=== PATIENT | female | born 1970 | race Caucasian/White ===

== ENCOUNTER → 2018-05-12 07:58 | Outpatient (CLI) | payer MEDICARE, MEDICAID, SELFPAY ==
[2018-05-12 08:53] LABS: Add Manual Diff / Slide Review NO; Basophils Percent Auto 1.2 % (0-2); Eosinophils Percent Auto 4.1 % (2-4); Hematocrit 35.6 % (36-46); Lymphocytes Percent Auto 47.1 % (25-40); Mean Corpuscular HGB Conc 33.7 % (30-36); Monocytes Percent Auto 8.6 % (3-14); Neutrophils Absolute Auto 3200 /uL (3000-5900); Platelet Count 230 X10^3/uL (150-400); Red Blood Cell Count 4.14 X10^6/uL (4.0-5.2); Red Cell Distribution Width 13.5 % (11.6-14.8); White Blood Cell Count 8.1 X10^3/uL (4.5-11.0)
[2018-05-12 09:12] LABS: Hemoglobin A1C% w Est Avg Glu 10.5 % (4.0-6.0)
[2018-05-12 09:13] LABS: Alanine Aminotransferase 22 IU/L (9-52); Albumin 4.4 g/dL (3.5-5.0); Albumin Globulin Ratio 1.6 (1.0-2.8); Alkaline Phosphatase 46 U/L (38-126); Aspartate Aminotransferase 10 IU/L (14-36); BUN Creatinine Ratio 23.3 (6-22); Bilirubin Total 0.4 mg/dL (0.2-1.3); Blood Urea Nitrogen 14 mg/dL (7-17); Calcium 9.2 mg/dL (8.4-10.2); Carbon Dioxide 31 mmol/L (22-32); Chloride 87 mmol/L (98-107); Cholesterol 140 mg/dL (140-199); Estimated Glomerular Filt Rate > 60.0 mL/min (>60); Globulin 2.8 g/dL (1.7-4.1); Glucose 234 mg/dL (70-100); HDL Cholesterol 47 mg/dL (40-60); HEMOLYSIS < 15 (0-50); LDL Cholesterol Calculated 75 mg/dL (<100); Potassium 4.2 mmol/L (3.4-5.1); Sodium 128 mmol/L (137-145); Total Protein 7.2 g/dL (6.3-8.2); Triglycerides 92 mg/dL (35-150)
[2018-05-12 09:51] LABS: Creatinine Urine Random 46.1 mg/dL
[2018-05-12 09:57] LABS: Microalbumi Creatinin Ratio Ur 30.3 ug/mg CR (<30); Microalbumin Urine Random 1.4 mg/dL (0-1.6)
== END ==
PROVIDERS: PCP Family Medicine; Visit Provider Family Medicine
DX: E11.9 Type 2 diabetes mellitus without complications (principal)
CPT/HCPCS: 36415; 80053; 80061; 82043; 82570; 83036; 84443; 85025

== ENCOUNTER 2018-07-13 02:16 | Emergency (ER) | payer MEDICARE, MEDICAID, SELFPAY ==
[2018-07-13 02:20] VITALS: BP 160/77; PULSE 126; RESP 20; TEMP 37; O2SAT 96
--- NOTE | 2018-07-13 02:33 | DI.RAD.S_ITS ---
PROCEDURE: XR CHEST 1V INDICATIONS: weakness, fatigue TECHNIQUE: One view of the chest was acquired. COMPARISON: [facility], CHEST 1 VIEW, 04/01/2016, 11:18. [facility], CHEST 2 VIEW, 01/28/2014, 9:50. [facility], CHEST 2 VIEW, 08/05/2013, 9:08. [facility], CHEST 1 VIEW, 08/01/2013, 14:27. FINDINGS: Surgical changes and devices: None. Lungs and pleura: No pleural effusions or pneumothorax. Lungs are clear. Mediastinum: Mediastinal contours appear normal. Heart size is normal. Bones and chest wall: No suspicious bony lesions. Overlying soft tissues appear unremarkable. IMPRESSION: No acute cardiopulmonary disease process. Dictated by: Luisa Ayoub MD, PhD on 07/13/2018 at 10:12 Approved by: Luisa Ayoub MD, PhD on 07/13/2018 at 10:12
[2018-07-13 03:14] LABS: HCO3 VBG 22 mmol/L (24-28); Oxygen Saturation VBG 70 % (70-75); PCO2 VBG 34.6 mmHg (45-50); PO2 VBG 36 mmHg (35-45); Total CO2 VBG 23 mmol/L (24-29)
[2018-07-13 03:26] LABS: Add Manual Diff / Slide Review NO; Basophils Percent Auto 1.1 % (0-2); Eosinophils Percent Auto 0.3 % (2-4); Hematocrit 31.9 % (36-46); Hemoglobin 10.8 g/dL (12.0-16.0); Lymphocytes Percent Auto 11.4 % (25-40); Mean Corpuscular HGB Conc 33.9 % (30-36); Mean Corpuscular Hemoglobin 29.6 PG (26-34); Mean Corpuscular Volume 87.4 fL (80-100); Monocytes Percent Auto 13.1 % (3-14); Neutrophils Absolute Auto 7300 /uL (3000-5900); Neutrophils Percent Auto 74.1 % (50-75); Platelet Count 264 X10^3/uL (150-400); Red Blood Cell Count 3.65 X10^6/uL (4.0-5.2); Red Cell Distribution Width 14.5 % (11.6-14.8); White Blood Cell Count 9.8 X10^3/uL (4.5-11.0)
[2018-07-13 03:40] LABS: Alanine Aminotransferase 30 IU/L (9-52); Albumin Globulin Ratio 1.1 (1.0-2.8); Alkaline Phosphatase 104 U/L (38-126); Aspartate Aminotransferase 38 IU/L (14-36); Bilirubin Total 0.5 mg/dL (0.2-1.3); Blood Urea Nitrogen 12 mg/dL (7-17); Calcium 9.6 mg/dL (8.4-10.2); Carbon Dioxide 23 mmol/L (22-32); Chloride 86 mmol/L (98-107); Estimated Glomerular Filt Rate > 60.0 mL/min (>60); Globulin 3.5 g/dL (1.7-4.1); Glucose 275 mg/dL (70-100); HEMOLYSIS < 15 (0-50); Potassium 3.8 mmol/L (3.4-5.1); Sodium 126 mmol/L (137-145); Total Protein 7.5 g/dL (6.3-8.2)
[2018-07-13 03:43] LABS: Ketones (Beta-Hydroxybutyrate) 2.83 mmol/L (<0.27)
[2018-07-13] MEDS: SODIUM CHLORIDE 0.9% 1,000 ML 1000 ML IV ×2 (03:50→04:41)
[2018-07-13 03:52] LABS: Troponin I < 0.012 ng/mL (0.01-0.034)
[2018-07-13 03:58] LABS: Bacteria Urine Many (>30); Culture Indicated Urine Specimen Cultured; RBC Urine 1-5/HPF (0-5/HPF); WBC Urine 30-100/HPF (0-5/HPF)
--- NOTE | 2018-07-13 04:01 | ED_ITS ---
HPI - Weakness General Chief complaint: Diabetic Problem Stated complaint: blood sugar low, has been spaced out Time Seen by Provider: 07/13/18 02:20 Source: patient and family Mode of arrival: ambulatory Limitations: no limitations History of Present Illness HPI Narrative: 48-year-old female with a history of type 2 diabetes and a cardiac history presents with her in the chief complaint of generally feeling unwell for the past 3-4 days. She denies any specific complaints other than fatigue. She has had no nausea, vomiting or diarrhea. She denies any chest pain or shortness of breath. She denies any cough nor dizziness, weakness or lightheadedness. She denies any change in her diabetic regimen and states she has been taking her medications as directed MD Complaint: generalized weakness Onset (ago): day(s) Duration: constant Location: generalized Migration: none Relieving factors: none Exacerbating factors: none Associated symptoms: denies other symptoms Related Data Previous Rx's Medication Instructions Recorded albuterol sulfate 3 ml INH Q6HP PRN #60 amp 08/13/13 azithromycin [Zithromax] 250 mg PO QDAY #6 tab 01/17/17 doxycycline monohydrate 100 mg PO Q12H #20 cap 08/31/17 Disabled Parking Permit stefani #1 09/09/17 clotrimazole-betamethasone 1 stefani TOPICAL BID #15 gm 11/01/17 [Lotrisone] [EMLA/IMCD] #0 12/05/17 metoclopramide HCl 10 mg PO SEE INSTRUCTIONS #120 tab 01/28/18 dulaglutide 1.5 mg/0.5 mL 1.5 mg SUBCUT QWEEK #2 ml 05/15/18 subcutaneous pen injector fenofibrate 160 mg tablet 160 mg PO QDAY #90 tab 05/15/18 fluoxetine 20 mg capsule 60 mg PO QDAY #270 cap 05/15/18 glimepiride 4 mg tablet 4 mg PO QAM #90 tab 05/15/18 insulin aspart U-100 100 unit/mL 0 unit SUBCUT BID #30 ea 05/15/18 subcutaneous pen lisinopril 5 mg tablet 10 mg PO QDAY #180 tab 05/15/18 metoprolol succinate ER 25 mg 25 mg PO BID #90 tab 05/15/18 tablet,extended release 24 hr nortriptyline 50 mg capsule 50 mg PO HS #30 cap 05/15/18 omeprazole 20 mg capsule,delayed 20 mg PO QDAY #30 cap 05/15/18 release rosuvastatin 40 mg tablet 40 mg PO QDAY #90 tab 05/15/18 temazepam 30 mg capsule 30 mg PO HS #60 cap 05/15/18 [place] pkg BID #100 05/21/18 insulin detemir (U-100) 100 0 unit SUBCUT SEE INSTRUCTIONS #10 06/03/18 unit/mL subcutaneous solution ml gabapentin 600 mg tablet 600 mg PO TID #540 tab 07/07/18 oxycodone-acetaminophen 10 mg-325 1 - 2 tab PO Q6HP PRN #200 tab 07/10/18 mg tablet cephalexin [Keflex] 500 mg PO QID 10 Days #40 cap 07/13/18 Allergies Allergy/AdvReac Type Severity Reaction Status Date / Time Sulfa (Sulfonamide Allergy Severe hives Verified 05/15/18 10:54 Antibiotics) [SULFA (SULFONAMIDE ANTIBIOTICS)] Review of Systems Review of Systems All systems reviewed & are unremarkable except as noted in HPI and below Constitutional Denies chills, Denies fever(s), Denies lethargy and Reports weakness Eyes Denies change in vision, Denies eye discharge, Denies irritation and Denies loss of vision ENT Ears, Nose, Mouth, and Throat: Denies change in voice, Denies neck pain and Denies sore throat Cardiovascular Denies chest pain, Denies irregular heart rhythm, Denies lightheadedness, Denies palpitations, Denies dyspnea, Denies dyspnea on exertion and Denies orthopnea Respiratory Denies cough, Denies dyspnea, Denies dyspnea on exertion and Denies wheezing Gastrointestinal Gastrointestinal: Denies abdominal pain, Denies change in bowel habits, Denies diarrhea, Denies nausea and Denies vomiting Genitourinary Denies hematuria, Denies flank pain, Denies urinary incontinence and Denies urinary urgency Musculoskeletal Denies neck pain Integumentary/Breasts Denies pruritus, Denies erythema, Denies rash and Denies wounds Neurologic Denies confusion, Denies loss of vision and Reports weakness Psychiatric Denies anxiety, Denies confusion, Denies depression, Denies homicidal ideation and Denies suicidal ideation Endocrine Denies palpitations Hematologic/Lymphatic Denies easy bruising Allergic/Immunologic Denies wheezing [facility] Social History Smoking Status: Never smoker Exam Initial Vital Signs Initial Vital Signs: Vital Signs Temperature 98.6 F 07/13/18 02:20 Pulse Rate 126 H 07/13/18 02:20 Respiratory Rate 20 07/13/18 02:20 Blood Pressure 160/77 H 07/13/18 02:20 Pulse Oximetry 96 07/13/18 02:20 Const General: cooperative and well developed Nutritional Appearance: well nourished Orientation: alert, awake, oriented x3 and not confused HENMT Head: normocephalic and atraumatic Ears: external ears normal and TM's normal bilaterally Nose: external nose normal and No nasal discharge Face and sinus: sinuses nontender, face symmetric, no sinus tenderness and No dry mucous membranes Mouth: oral mucosae normal and moist mucous membranes Teeth and gingiva: dentition normal Throat: tonsils normal and uvula midline Eyes General: appearance normal, both eyes and all related structures Eyelids: eyelids normal Conjunctivae: conjunctivae normal Sclera: sclerae normal Pupils: PERRL EOM: EOM intact bilaterally Chest Chest: normal inspection of the chest Resp Effort & Inspection: normal respiratory effort, able to speak in complete sentences, no respiratory distress and no use of accessory muscles Auscultation: clear to auscultation bilaterally, no rales, no rhonchi and no wheezes Cardio Rate: tachycardic Rhythm: regular rhythm Heart Sounds: no click, no gallops, no murmurs and no rubs Pulses: normal peripheral pulses GI Inspection: non-distended Palpation: soft, no hepatosplenomegaly, No guarding, No pulsatile mass and No tender Auscultation: normal bowel sounds Back/Spine/Pelvis Back: No CVA tenderness Cervical Spine: cervical ROM normal and No pain with cervical ROM Thoracic/Lumbar Spine: thoracic and lumbar spine normal to inspection Skin General: no rashes or lesions noted, No jaundice and No petechiae Extrem General: full ROM, no clubbing, cyanosis or edema, no pedal edema and no calf tenderness Course Orders Ordered: ED Orders 07/13/18 02:33 XR chest 1V Stat EKG-12 Lead Stat 07/13/18 03:00 Complete Blood Count AUTO DIFF Stat Comprehensive Metabolic Panel Stat Ketones (Beta-Hydroxybutyrate) Stat Lactate (Lactic Acid) Stat Procalcitonin Stat T4 Thyroxine Stat Thyroid Stimulating Hormone Stat Troponin I Stat Urine Culture Stat Urine Microscopic Stat Venous Blood Gas Stat Discontinued Medications Sodium Chloride (Normal Saline 0.9%) 1,000 mls @ 1,000 mls/hr IV BOLUS ONE Stop: 07/13/18 03:31 Last Infusion: 07/13/18 04:41 Dose: 0 mls/hr Admin: 07/13/18 03:50 Dose: 1,000 mls/hr Sodium Chloride (Normal Saline 0.9%) 1,000 mls @ 1,000 mls/hr IV BOLUS ONE Stop: 07/13/18 05:09 Last Infusion: 07/13/18 05:38 Dose: 0 mls/hr Admin: 07/13/18 04:41 Dose: 1,000 mls/hr Ceftriaxone Sodium/Dextrose (Rocephin) 1 gm in 50 mls @ 100 mls/hr IV NOW ONE Stop: 07/13/18 04:41 Last Infusion: 07/13/18 04:46 Dose: 0 mls/hr Admin: 07/13/18 04:20 Dose: 100 mls/hr Reevaluation(s) Reevaluation #1: HR down to 103 after 1L saline. Time: 04:10 Vital Signs - 8 hr 07/13/18 02:20 07/13/18 05:01 Temperature 98.6 F Pulse Rate 126 H 107 H Respiratory Rate 20 17 Blood Pressure 160/77 H Blood Pressure [Right Arm] 140/70 Pulse Oximetry 96 99 MDM - Weakness Lab Data Attestation: I reviewed the patient's lab results. patient is hyponatremic, but this is nearly identical to prior numbers Result diagrams: 07/13/18 03:00 07/13/18 03:00 Lab Results 07/13/18 07/13/18 07/13/18 Range/Units 03:00 03:00 03:00 WBC 9.8 (4.5-11.0) X10^3/uL RBC 3.65 L (4.0-5.2) X10^6/uL Hgb 10.8 L (12.0-16.0) g/dL Hct 31.9 L (36-46) % MCV 87.4 (80-100) fL MCH 29.6 (26-34) PG MCHC 33.9 (30-36) % RDW 14.5 (11.6-14.8) % Plt Count 264 (150-400) X10^3/uL Neut % (Auto) 74.1 (50-75) % Lymph % (Auto) 11.4 L (25-40) % [place] % (Auto) 13.1 (3-14) % Eos % (Auto) 0.3 L (2-4) % Baso % (Auto) 1.1 (0-2) % Neut # (Auto) 7300 H (1859-4095) /uL VBG pH (7.31-7.41) VBG pCO2 (45-50) mmHg VBG pO2 (35-45) mmHg VBG HCO3 (24-28) mmol/L VBG Total CO2 (24-29) mmol/L VBG O2 Saturation (70-75) % VBG Base Excess (0-4) mmol/L Sodium 126 L (137-145) mmol/L Potassium 3.8 (3.4-5.1) mmol/L Chloride 86 L (98-107) mmol/L Carbon Dioxide 23 (22-32) mmol/L BUN 12 (7-17) mg/dL Creatinine 0.80 (0.52-1.04) mg/dL Estimated GFR > 60.0 (>60) mL/min BUN/Creatinine Ratio 15.0 (6-22) Glucose 275 H (70-100) mg/dL Lactate (0.7-2.1) mmol/L Calcium 9.6 (8.4-10.2) mg/dL Total Bilirubin 0.5 (0.2-1.3) mg/dL AST 38 H (14-36) IU/L ALT 30 (9-52) IU/L Alkaline Phosphatase 104 (38-126) U/L Troponin I < 0.012 (0.01-0.034) ng/mL Total Protein 7.5 (6.3-8.2) g/dL Albumin 4.0 (3.5-5.0) g/dL Globulin 3.5 (1.7-4.1) g/dL Albumin/Globulin Ratio 1.1 (1.0-2.8) Procalcitonin 16.40 H (<0.5) ng/mL TSH (0.47-4.68) uIU/mL Thyroxine (T4) (5.5-11.0) ug/dL Urine RBC (0-5/HPF) Urine WBC (0-5/HPF) Urine Bacteria (None) Ur Culture Indicated? Micro UA Comment Ketones 2.83 H (<0.27) mmol/L 07/13/18 07/13/18 07/13/18 Range/Units 03:00 03:00 03:00 WBC (4.5-11.0) X10^3/uL RBC (4.0-5.2) X10^6/uL Hgb (12.0-16.0) g/dL Hct (36-46) % MCV (80-100) fL MCH (26-34) PG MCHC (30-36) % RDW (11.6-14.8) % Plt Count (150-400) X10^3/uL Neut % (Auto) (50-75) % Lymph % (Auto) (25-40) % [place] % (Auto) (3-14) % Eos % (Auto) (2-4) % Baso % (Auto) (0-2) % Neut # (Auto) (3032-9096) /uL VBG pH 7.40 (7.31-7.41) VBG pCO2 34.6 L (45-50) mmHg VBG pO2 36 (35-45) mmHg VBG HCO3 22 L (24-28) mmol/L VBG Total CO2 23 L (24-29) mmol/L VBG O2 Saturation 70 (70-75) % VBG Base Excess -3.0 L (0-4) mmol/L Sodium (137-145) mmol/L Potassium (3.4-5.1) mmol/L Chloride (98-107) mmol/L Carbon Dioxide (22-32) mmol/L BUN (7-17) mg/dL Creatinine (0.52-1.04) mg/dL Estimated GFR (>60) mL/min BUN/Creatinine Ratio (6-22) Glucose (70-100) mg/dL Lactate 1.0 (0.7-2.1) mmol/L Calcium (8.4-10.2) mg/dL Total Bilirubin (0.2-1.3) mg/dL AST (14-36) IU/L ALT (9-52) IU/L Alkaline Phosphatase (38-126) U/L Troponin I (0.01-0.034) ng/mL Total Protein (6.3-8.2) g/dL Albumin (3.5-5.0) g/dL Globulin (1.7-4.1) g/dL Albumin/Globulin Ratio (1.0-2.8) Procalcitonin (<0.5) ng/mL TSH 0.13 L (0.47-4.68) uIU/mL Thyroxine (T4) 5.68 (5.5-11.0) ug/dL Urine RBC (0-5/HPF) Urine WBC (0-5/HPF) Urine Bacteria (None) Ur Culture Indicated? Micro UA Comment Ketones (<0.27) mmol/L 07/13/18 Range/Units 03:00 WBC (4.5-11.0) X10^3/uL RBC (4.0-5.2) X10^6/uL Hgb (12.0-16.0) g/dL Hct (36-46) % MCV (80-100) fL MCH (26-34) PG MCHC (30-36) % RDW (11.6-14.8) % Plt Count (150-400) X10^3/uL Neut % (Auto) (50-75) % Lymph % (Auto) (25-40) % [place] % (Auto) (3-14) % Eos % (Auto) (2-4) % Baso % (Auto) (0-2) % Neut # (Auto) (1507-3126) /uL VBG pH (7.31-7.41) VBG pCO2 (45-50) mmHg VBG pO2 (35-45) mmHg VBG HCO3 (24-28) mmol/L VBG Total CO2 (24-29) mmol/L VBG O2 Saturation (70-75) % VBG Base Excess (0-4) mmol/L Sodium (137-145) mmol/L Potassium (3.4-5.1) mmol/L Chloride (98-107) mmol/L Carbon Dioxide (22-32) mmol/L BUN (7-17) mg/dL Creatinine (0.52-1.04) mg/dL Estimated GFR (>60) mL/min BUN/Creatinine Ratio (6-22) Glucose (70-100) mg/dL Lactate (0.7-2.1) mmol/L Calcium (8.4-10.2) mg/dL Total Bilirubin (0.2-1.3) mg/dL AST (14-36) IU/L ALT (9-52) IU/L Alkaline Phosphatase (38-126) U/L Troponin I (0.01-0.034) ng/mL Total Protein (6.3-8.2) g/dL Albumin (3.5-5.0) g/dL Globulin (1.7-4.1) g/dL Albumin/Globulin Ratio (1.0-2.8) Procalcitonin (<0.5) ng/mL TSH (0.47-4.68) uIU/mL Thyroxine (T4) (5.5-11.0) ug/dL Urine RBC 1-5/hpf (0-5/HPF) Urine WBC 30-100/hpf H (0-5/HPF) Urine Bacteria Many (>30) H (None) Ur Culture Indicated? Specimen cultured Micro UA Comment Not Reportable Ketones (<0.27) mmol/L Point of Care Testing Glucose POC 243 Urine Dip Bedside Urine Glucose 1000 mg/dl Bedside Urine Bilirubin - Negative Bedside Urine Ketone ++ 40 Urine Specific [place] 1.015 Bedside Urine Occult Blood + Bedside Urine pH 6.0 Bedside Urine Protein + 30 Bedside Urine Urobilinogen - Negative Bedside Urine Nitrite - Negative Bedside Urine Leukocytes ++ 125 Esterase MDM Narrative Medical decision making narrative: Diabetic patient presents with chief complaint of feeling unwell. She has no fever and denies any dysuria, nausea or back pain. She denies any shaking chills. She initially has a heart rate of over 120 which improves dramatically after even the 1st L of fluid. Her urine is compelling for infection particularly in the setting of critically elevated procalcitonin. Her white count however is normal as is her lactate. Given her impressive response to fluids and antibiotics she is a strong candidate for discharge and close follow-up Discharge Plan Departure Patient Disposition: Home Clinical Impression: Pyelonephritis Instructions: DI for Kidney Infection Activity Restrictions/Additional Instructions: *You have been diagnosed with [ pyelonephritis ] *What to do: *Take medications as directed *Follow up with your primary care provider in 2-3 days, call for an appointment. Let them know you were seen in the Emergency Department and that we ask that you be seen in follow up *Return to ER if you should have any new, worsening or concerning symptoms Prescriptions: New cephalexin [Keflex] 500 mg capsule 500 mg PO QID 10 Days Qty: 40 RF: 0 No Action albuterol sulfate 2.5 MG/3 ML solution for nebulization 3 ml INH Q6HP PRNQty: 60 RF: 5 azithromycin [Zithromax] 250 MG tablet 250 mg PO QDAY Qty: 6 RF: 0 doxycycline monohydrate 100 MG capsule 100 mg PO Q12H Qty: 20 RF: 0 Disabled Parking Permit Qty: 1 RF: 0 clotrimazole-betamethasone [Lotrisone] 15 GM cream 1 stefani Topical BID Qty: 15 RF: 0 [EMLA/IMCD] Qty: 0 RF: 0 metoclopramide HCl 10 MG tablet 10 mg PO SEE INSTRUCTIONS Qty: 120 RF: 5 [place] BID Qty: 100 RF: 2 insulin detemir U-100 [Levemir U-100 Insulin] 100 unit/mL solution SUBCUT SEE INSTRUCTIONS Qty: 10 RF: 5 gabapentin [Neurontin] 600 mg tablet 600 mg PO TID Qty: 540 RF: 3 oxycodone-acetaminophen [Percocet] 10-325 mg tablet 1 - 2 tab PO Q6HP PRN (Reason: pain) Qty: 200 RF: 0 dulaglutide [Trulicity] 1.5 mg/0.5 mL pen injector 1.5 mg SUBCUT QWEEK Qty: 2 RF: 0 fenofibrate 160 mg tablet 160 mg PO QDAY Qty: 90 RF: 3 fluoxetine 20 mg capsule 60 mg PO QDAY Qty: 270 RF: 3 insulin aspart U-100 [Novolog Flexpen U-100 Insulin] 100 unit/mL insulin pen SUBCUT BID Qty: 30 RF: 11 lisinopril 5 mg tablet 10 mg PO QDAY Qty: 180 RF: 3 metoprolol succinate [Toprol XL] 25 mg tablet extended release 24 hr 25 mg PO BID Qty: 90 RF: 2 nortriptyline 50 mg capsule 50 mg PO HS Qty: 30 RF: 5 omeprazole 20 mg capsule,delayed release(DR/EC) 20 mg PO QDAY Qty: 30 RF: 3 rosuvastatin [Crestor] 40 mg tablet 40 mg PO QDAY Qty: 90 RF: 3 temazepam 30 mg capsule 30 mg PO HS Qty: 60 RF: 2 glimepiride 4 mg tablet 4 mg PO QAM Qty: 90 RF: 0
[2018-07-13 04:04] LABS: T4 Total Thyroxine 5.68 ug/dL (5.5-11.0)
[2018-07-13 04:18] LABS: Thyroid Stimulating Hormone 0.13 uIU/mL (0.47-4.68)
[2018-07-13] MEDS: CEFTRIAXONE 1 GM/50 ML FROZ.PIGGY IV (04:20)
[2018-07-13 05:01] VITALS: BP 140/70; PULSE 107; RESP 17; O2SAT 99
[2018-07-13 05:57] VITALS: BP 153/77; PULSE 110; RESP 16; O2SAT 98
== END 2018-07-13 05:59 | disposition home or self-care (01) ==
PROVIDERS: Emergency Provider Emergency Medicine; PCP Family Medicine
DX: N12 Tubulo-interstitial nephritis, not specified as acute or chronic (principal); R53.1 Weakness
CPT/HCPCS: 36415; 36591; 71045; 80053; 81003; 81015; 82009; 82805; 82962; 83605; 84145; 84436; 84443; 84484; 85025; 87077; 87086; 87186; 93005; 93010; 96361; 96365; 99283; 99285

== ENCOUNTER → 2018-08-04 12:53 | Outpatient (CLI) | payer MEDICARE, MEDICAID, SELFPAY ==
[2018-08-04 13:58] LABS: Hemoglobin A1C% w Est Avg Glu 8.8 % (4.0-6.0)
[2018-08-04 14:03] LABS: BUN Creatinine Ratio 12.9 (6-22); Blood Urea Nitrogen 9 mg/dL (7-17); Calcium 9.6 mg/dL (8.4-10.2); Carbon Dioxide 26 mmol/L (22-32); Chloride 93 mmol/L (98-107); Estimated Glomerular Filt Rate > 60.0 mL/min (>60); Glucose 216 mg/dL (70-100); HEMOLYSIS < 15 (0-50); Potassium 4.6 mmol/L (3.4-5.1); Sodium 132 mmol/L (137-145)
[2018-08-04 14:16] LABS: Free T4, Direct Thyroxine 0.73 ng/dL (0.78-2.19)
[2018-08-04 14:17] LABS: Free T3, Triiodothyronine Free 2.99 pg/mL (2.77-5.27)
[2018-08-04 14:30] LABS: Thyroid Stimulating Hormone 0.56 uIU/mL (0.47-4.68)
== END ==
PROVIDERS: PCP Family Medicine; Visit Provider Family Medicine
DX: E11.9 Type 2 diabetes mellitus without complications (principal)
CPT/HCPCS: 36415; 80048; 83036; 84439; 84443; 84481

== ENCOUNTER 2018-08-19 08:02 | Emergency (ER) | payer MEDICARE, MEDICAID, SELFPAY ==
[2018-08-19 08:10] VITALS: BP 180/102; PULSE 88; RESP 13; TEMP 36.6; O2SAT 98
--- NOTE | 2018-08-19 08:16 | PC.NURSE ---
pt reports, hx of uti, kidney pain for 2-3 days, with burning, frequency with urinations, denies fever or vomiting, denies trauma/injuries, denies vaginal dc.
--- NOTE | 2018-08-19 08:35 | ED_ITS ---
HPI - Female Genitourinary General Chief complaint: Urogenital-Female Stated complaint: Back pain where kidneys are Time Seen by Provider: 08/19/18 08:14 Source: patient, RN notes reviewed and old records reviewed Mode of arrival: ambulatory Limitations: no limitations History of Present Illness HPI Narrative: Patient is a 48-year-old female who presents with generally not feeling well for the last few days. She has had congestion sinus he nasal drip and sore throat. She also and more importantly has bilateral flank pain. She was seen and evaluated in July diagnosed with pyelonephritis. She has painful frequent urination urinating small amounts. She has no abdominal pain nausea or vomiting. She overall just does not feel good. She denies productive cough. Denies fever. MD Complaint: dysuria Related Data Home Medications Medication Instructions Recorded Confirmed Disabled Parking Permit 1 stefani MISCELLANEOUS DIRECTED 08/19/18 08/19/18 [place] 1 pkg MISCELLANEOUS BID 08/19/18 08/19/18 metoclopramide HCl 10 mg PO ACHS 08/19/18 08/19/18 Previous Rx's Medication Instructions Recorded albuterol sulfate 3 ml INH Q6HP PRN #60 amp 08/13/13 azithromycin [Zithromax] 250 mg PO QDAY #6 tab 01/17/17 [EMLA/IMCD] #0 12/05/17 dulaglutide 1.5 mg/0.5 mL 1.5 mg SUBCUT QWEEK #2 ml 05/15/18 subcutaneous pen injector fenofibrate 160 mg tablet 160 mg PO QDAY #90 tab 05/15/18 fluoxetine 20 mg capsule 60 mg PO QDAY #270 cap 05/15/18 insulin aspart U-100 100 unit/mL 0 unit SUBCUT BID #30 ea 05/15/18 subcutaneous pen lisinopril 5 mg tablet 10 mg PO QDAY #180 tab 05/15/18 metoprolol succinate ER 25 mg 25 mg PO BID #90 tab 05/15/18 tablet,extended release 24 hr nortriptyline 50 mg capsule 50 mg PO HS #30 cap 05/15/18 omeprazole 20 mg capsule,delayed 20 mg PO QDAY #30 cap 05/15/18 release rosuvastatin 40 mg tablet 40 mg PO QDAY #90 tab 05/15/18 temazepam 30 mg capsule 30 mg PO HS #60 cap 05/15/18 insulin detemir (U-100) 100 0 unit SUBCUT SEE INSTRUCTIONS #10 06/03/18 unit/mL subcutaneous solution ml oxycodone-acetaminophen 10 mg-325 1 - 2 tab PO Q6HP PRN #200 tab 07/31/18 mg tablet glimepiride 4 mg tablet 4 mg PO QAM #90 tab 08/08/18 gabapentin 600 mg tablet 1,200 mg PO TID #540 tab 08/15/18 cephalexin [Keflex] 500 mg PO TID #21 cap 08/19/18 Allergies Allergy/AdvReac Type Severity Reaction Status Date / Time Sulfa (Sulfonamide Allergy Severe hives Verified 05/15/18 10:54 Antibiotics) [SULFA (SULFONAMIDE ANTIBIOTICS)] Review of Systems Review of Systems All systems reviewed & are unremarkable except as noted in HPI and below Constitutional Denies chills, Denies fever(s), Denies lethargy and Reports weakness ENT Ears, Nose, Mouth, and Throat: Reports as per HPI Cardiovascular Denies chest pain, Denies irregular heart rhythm, Denies lightheadedness, Denies palpitations, Denies dyspnea, Denies dyspnea on exertion and Denies orthopnea Respiratory Denies cough, Denies dyspnea, Denies dyspnea on exertion and Denies wheezing Gastrointestinal Gastrointestinal: Denies abdominal pain, Denies change in bowel habits, Denies diarrhea, Denies nausea and Denies vomiting Genitourinary Reports as per HPI Musculoskeletal Denies back pain, Denies muscle weakness, Denies numbness and Denies tingling Integumentary/Breasts Denies pruritus, Denies erythema, Denies rash and Denies wounds Neurologic Denies numbness, Denies tingling and Reports weakness Endocrine Denies palpitations Allergic/Immunologic Denies wheezing [facility] Medical History Anxiety (Acute) Diabetes (Acute) Hyperlipidemia (Acute) Hypertension (Acute) Social History Smoking Status: Never smoker Exam Initial Vital Signs Initial Vital Signs: Vital Signs Temperature 98 F 08/19/18 08:10 Pulse Rate 88 08/19/18 08:10 Respiratory Rate 13 08/19/18 08:10 Blood Pressure 180/102 H 08/19/18 08:10 Pulse Oximetry 98 08/19/18 08:10 GENERAL: Well-appearing, well-nourished and in no acute distress. HEENT: Head atraumatic,EOMI, pupils reactive, face symmetric, frontal and maxillary sinus tenderness pharynx clear no erythema deviation CARDIOVASCULAR: Regular rate and rhythm without murmurs, rubs or gallops. RESPIRATORY: Breath sounds equal bilaterally, no wheezes rales or rhonchi. ABDOMEN: Soft, nontender. Normoactive bowel sounds all 4 quadrants. No guarding or rebound. : Bilateral mild CVA tenderness EXTREMITIES: Normal range of motion, no clubbing or edema. Neurovascularly intact NEUROLOGICAL: Alert and oriented x4.Normal gait and speech. Cranial nerves II through XII grossly intact. SKIN: Warm, dry, no laceration, no petechiae, no rashes or lesions. Course Orders Ordered: ED Orders 08/19/18 08:30 Basic Metabolic Panel Stat Complete Blood Count AUTO DIFF Stat Lactate (Lactic Acid) Stat Procalcitonin Stat 08/19/18 09:00 Blood Culture Stat 08/19/18 09:56 CT kidney ureter bladder (KUB) Stat Discontinued Medications Sodium Chloride (Normal Saline 0.9%) 1,000 mls @ 1,000 mls/hr IV BOLUS ONE Stop: 08/19/18 09:26 Last Infusion: 08/19/18 10:05 Dose: 0 mls/hr Admin: 08/19/18 08:50 Dose: 1,000 mls/hr Ceftriaxone Sodium/Dextrose (Rocephin) 1 gm in 50 mls @ 100 mls/hr IV NOW ONE Stop: 08/19/18 09:48 Last Infusion: 08/19/18 10:05 Dose: 0 mls/hr Admin: 08/19/18 09:33 Dose: 100 mls/hr Ketorolac Tromethamine (Toradol) 30 mg INJ INTRA-OP ONE Stop: 08/19/18 08:52 Last Admin: 08/19/18 08:56 Dose: 30 mg Vital Signs - 8 hr 08/19/18 08:10 08/19/18 09:43 08/19/18 10:44 Temperature 98 F Pulse Rate 88 81 74 Respiratory Rate 13 14 Blood Pressure 180/102 H Blood Pressure [Left Arm] 140/82 Blood Pressure [Right Arm] 150/80 H Pulse Oximetry 98 99 99 MDM - Female Genitourinary Lab Data Attestation: I reviewed the patient's lab results. Result diagrams: 08/19/18 08:30 08/19/18 08:30 Lab Results 08/19/18 08/19/18 08/19/18 Range/Units 08:30 08:30 08:30 WBC 9.4 (4.5-11.0) X10^3/uL RBC 4.02 (4.0-5.2) X10^6/uL Hgb 12.1 (12.0-16.0) g/dL Hct 36.1 (36-46) % MCV 89.6 (80-100) fL MCH 30.0 (26-34) PG MCHC 33.4 (30-36) % RDW 14.4 (11.6-14.8) % Plt Count 227 (150-400) X10^3/uL Neut % (Auto) 46.5 L (50-75) % Lymph % (Auto) 38.2 (25-40) % [place] % (Auto) 8.2 (3-14) % Eos % (Auto) 5.5 H (2-4) % Baso % (Auto) 1.6 (0-2) % Neut # (Auto) 4400 (3816-2945) /uL Sodium 129 L (137-145) mmol/L Potassium 4.8 (3.4-5.1) mmol/L Chloride 90 L (98-107) mmol/L Carbon Dioxide 27 (22-32) mmol/L BUN 15 (7-17) mg/dL Creatinine 0.70 (0.52-1.04) mg/dL Estimated GFR > 60.0 (>60) mL/min BUN/Creatinine Ratio 21.4 (6-22) Glucose 342 H (70-100) mg/dL Lactate (0.7-2.1) mmol/L Calcium 9.8 (8.4-10.2) mg/dL Procalcitonin 11.61 H (<0.5) ng/mL 08/19/18 Range/Units 08:30 WBC (4.5-11.0) X10^3/uL RBC (4.0-5.2) X10^6/uL Hgb (12.0-16.0) g/dL Hct (36-46) % MCV (80-100) fL MCH (26-34) PG MCHC (30-36) % RDW (11.6-14.8) % Plt Count (150-400) X10^3/uL Neut % (Auto) (50-75) % Lymph % (Auto) (25-40) % [place] % (Auto) (3-14) % Eos % (Auto) (2-4) % Baso % (Auto) (0-2) % Neut # (Auto) (2140-7490) /uL Sodium (137-145) mmol/L Potassium (3.4-5.1) mmol/L Chloride (98-107) mmol/L Carbon Dioxide (22-32) mmol/L BUN (7-17) mg/dL Creatinine (0.52-1.04) mg/dL Estimated GFR (>60) mL/min BUN/Creatinine Ratio (6-22) Glucose (70-100) mg/dL Lactate 1.2 (0.7-2.1) mmol/L Calcium (8.4-10.2) mg/dL Procalcitonin (<0.5) ng/mL Urine Dip Bedside Urine Glucose 1000 mg/dl Bedside Urine Bilirubin - Negative Bedside Urine Ketone - Negative Urine Specific [place] 1.015 Bedside Urine Occult Blood - Negative Bedside Urine pH 6.0 Bedside Urine Protein - Negative Bedside Urine Urobilinogen - Negative Bedside Urine Nitrite - Negative Bedside Urine Leukocytes - Negative Esterase Imaging Data CT scan - abdomen: Radiologist's impression: PROCEDURE: CT KIDNEY URETER BLADDER (KUB) INDICATIONS: bilateral flank pain TECHNIQUE: Noncontrast 5 mm thick sections acquired from the diaphragms to the symphysis. 5 mm thick coronal and sagittal reformats were then performed. For radiation dose reduction, the following was used: automated exposure control, adjustment of mA and/or kV according to patient size. COMPARISON: [facility], CT, CHEST/ABD/PEL WITH CONTRAST, 11/26/2013, 9:02. FINDINGS: Image quality: Excellent. Lung bases: Linear atelectasis/scarring in posterior and lateral aspect of left lung base is seen. Heart size is normal. Urinary system: Both kidneys are normal in size. No kidney stones. No hydronephrosis or perinephric fat stranding. Both ureters appear non-dilated throughout their expected courses. Bladder wall thickness is normal; no calcified bladder stones. Other solid organs: Liver is normal in size. Gallbladder is within normal limits. Pancreas is normal in contours. Spleen is normal in size. No adrenal nodules. Peritoneum and bowel: Unenhanced bowel loops demonstrate normal wall thickness and caliber. No free fluid or air. Nodes and vessels: No retroperitoneal or mesenteric adenopathy by size criteria. Aorta and inferior vena cava are normal in caliber. Abdominal wall: No ventral hernias. Pelvis: No free pelvic fluid. No inguinal hernias or adenopathy. Patient is status post hysterectomy. Bones: No suspicious bony lesions. No vertebral body compression fractures. Degenerative disc disease at L5-S1 level is seen. IMPRESSION: 1. No renal stone or hydronephrosis. No finding to explain patient's symptoms. 2. No bowel obstruction. No free fluid or free air. No evidence of acute appendicitis or diverticulitis. Dictated by: Salvador Og M.D. on 08/19/2018 at 10:25 MDM Narrative Medical decision making narrative: I have called and spoken with Dr. Tom and agreed regards to follow-up. As he will see her this week in the office. He did request a CT. Discharge Plan Departure Patient Disposition: Home Clinical Impression: UTI (urinary tract infection) Discharge Date/Time: 08/19/18 11:01 Interventions: ED Discharge Assessment Last Done: 08/19/18 11:00 Instructions: Kidney Infection Activity Restrictions/Additional Instructions: *You have been diagnosed with kidney infection *What to do: Rest, hydrate fever control *Continue to take medications as directed Keflex 500 mg 3 times a day for 7 days *Follow up with your primary care provider in 2-3 days-Dr. Tom is expecting to see this week, please call to schedule an *Return to ER if you should have increasing weakness, increasing pain, inability to tolerate fluids or any new, worsening or concerning symptoms Prescriptions: New cephalexin [Keflex] 500 mg capsule 500 mg PO TID Qty: 21 RF: 0 No Action albuterol sulfate 2.5 MG/3 ML solution for nebulization 3 ml INH Q6HP PRNQty: 60 RF: 5 azithromycin [Zithromax] 250 MG tablet 250 mg PO QDAY Qty: 6 RF: 0 [EMLA/IMCD] Qty: 0 RF: 0 insulin detemir U-100 [Levemir U-100 Insulin] 100 unit/mL solution SUBCUT SEE INSTRUCTIONS Qty: 10 RF: 5 oxycodone-acetaminophen [Percocet] 10-325 mg tablet 1 - 2 tab PO Q6HP PRN (Reason: pain) Qty: 200 RF: 0 glimepiride 4 mg tablet 4 mg PO QAM Qty: 90 RF: 0 gabapentin [Neurontin] 600 mg tablet 1,200 mg PO TID Qty: 540 RF: 0 dulaglutide [Trulicity] 1.5 mg/0.5 mL pen injector 1.5 mg SUBCUT QWEEK Qty: 2 RF: 0 fenofibrate 160 mg tablet 160 mg PO QDAY Qty: 90 RF: 3 fluoxetine 20 mg capsule 60 mg PO QDAY Qty: 270 RF: 3 insulin aspart U-100 [Novolog Flexpen U-100 Insulin] 100 unit/mL insulin pen SUBCUT BID Qty: 30 RF: 11 lisinopril 5 mg tablet 10 mg PO QDAY Qty: 180 RF: 3 metoprolol succinate [Toprol XL] 25 mg tablet extended release 24 hr 25 mg PO BID Qty: 90 RF: 2 nortriptyline 50 mg capsule 50 mg PO HS Qty: 30 RF: 5 omeprazole 20 mg capsule,delayed release(DR/EC) 20 mg PO QDAY Qty: 30 RF: 3 rosuvastatin [Crestor] 40 mg tablet 40 mg PO QDAY Qty: 90 RF: 3 temazepam 30 mg capsule 30 mg PO HS Qty: 60 RF: 2 metoclopramide HCl 10 mg tablet 10 mg PO ACHS RF: 0 Disabled Parking Permit 1 stefani miscellaneous DIRECTED RF: 0 [place] 1 pkg miscellaneous BID RF: 0 Referrals: Ernesto Tom MD [Primary Care Provider] -
[2018-08-19 08:41] LABS: Add Manual Diff / Slide Review NO; Basophils Percent Auto 1.6 % (0-2); Eosinophils Percent Auto 5.5 % (2-4); Hematocrit 36.1 % (36-46); Hemoglobin 12.1 g/dL (12.0-16.0); Lymphocytes Percent Auto 38.2 % (25-40); Mean Corpuscular HGB Conc 33.4 % (30-36); Mean Corpuscular Volume 89.6 fL (80-100); Monocytes Percent Auto 8.2 % (3-14); Neutrophils Absolute Auto 4400 /uL (3000-5900); Neutrophils Percent Auto 46.5 % (50-75); Platelet Count 227 X10^3/uL (150-400); Red Blood Cell Count 4.02 X10^6/uL (4.0-5.2); Red Cell Distribution Width 14.4 % (11.6-14.8); White Blood Cell Count 9.4 X10^3/uL (4.5-11.0)
[2018-08-19] MEDS: SODIUM CHLORIDE 0.9% 1,000 ML 1000 ML IV (08:50)
--- NOTE | 2018-08-19 08:55 | PC.NURSE ---
reports, frontal headache for 2-3 days, states, with hx of migraine, but it doesnt feel like migraine, pt admits tolerating po fluids. has been taking regular tylenol.
[2018-08-19] MEDS: KETOROLAC 60 MG/2 ML VIAL 30 MG INJ (08:56)
[2018-08-19 09:00] LABS: BUN Creatinine Ratio 21.4 (6-22); Blood Urea Nitrogen 15 mg/dL (7-17); Calcium 9.8 mg/dL (8.4-10.2); Carbon Dioxide 27 mmol/L (22-32); Chloride 90 mmol/L (98-107); Estimated Glomerular Filt Rate > 60.0 mL/min (>60); Glucose 342 mg/dL (70-100); Lactate (Lactic Acid) 1.2 mmol/L (0.7-2.1); Potassium 4.8 mmol/L (3.4-5.1); Sodium 129 mmol/L (137-145)
[2018-08-19 09:04] LABS: HEMOLYSIS 56 (0-50)
[2018-08-19 09:14] LABS: Procalcitonin 11.61 ng/mL (<0.5)
[2018-08-19] MEDS: CEFTRIAXONE 1 GM/50 ML FROZ.PIGGY IV (09:33)
[2018-08-19 09:43] VITALS: BP 140/82; PULSE 81; RESP 14; O2SAT 99
--- NOTE | 2018-08-19 09:56 | DI.CT.S_ITS ---
PROCEDURE: CT KIDNEY URETER BLADDER (KUB) INDICATIONS: bilateral flank pain TECHNIQUE: Noncontrast 5 mm thick sections acquired from the diaphragms to the symphysis. 5 mm thick coronal and sagittal reformats were then performed. For radiation dose reduction, the following was used: automated exposure control, adjustment of mA and/or kV according to patient size. COMPARISON: [facility], CT, CHEST/ABD/PEL WITH CONTRAST, 11/26/2013, 9:02. FINDINGS: Image quality: Excellent. Lung bases: Linear atelectasis/scarring in posterior and lateral aspect of left lung base is seen. Heart size is normal. Urinary system: Both kidneys are normal in size. No kidney stones. No hydronephrosis or perinephric fat stranding. Both ureters appear non-dilated throughout their expected courses. Bladder wall thickness is normal; no calcified bladder stones. Other solid organs: Liver is normal in size. Gallbladder is within normal limits. Pancreas is normal in contours. Spleen is normal in size. No adrenal nodules. Peritoneum and bowel: Unenhanced bowel loops demonstrate normal wall thickness and caliber. No free fluid or air. Nodes and vessels: No retroperitoneal or mesenteric adenopathy by size criteria. Aorta and inferior vena cava are normal in caliber. Abdominal wall: No ventral hernias. Pelvis: No free pelvic fluid. No inguinal hernias or adenopathy. Patient is status post hysterectomy. Bones: No suspicious bony lesions. No vertebral body compression fractures. Degenerative disc disease at L5-S1 level is seen. IMPRESSION: 1. No renal stone or hydronephrosis. No finding to explain patient's symptoms. 2. No bowel obstruction. No free fluid or free air. No evidence of acute appendicitis or diverticulitis. Dictated by: Salvador Og M.D. on 08/19/2018 at 10:25 Approved by: Salvador Og M.D. on 08/19/2018 at 10:30
[2018-08-19 10:44] VITALS: BP 150/80; PULSE 74; O2SAT 99
--- NOTE | 2018-08-21 16:26 | PC.NURSE ---
Performed follow up phone call. Pt reports feeling better. Had no further questions about discharge instructions. Reports her stay would have been improved if there were tv's in the room
== END 2018-08-19 11:01 | disposition home or self-care (01) ==
PROVIDERS: Emergency Provider Emergency Medicine; PCP Family Medicine
DX: N39.0 Urinary tract infection, site not specified (principal)
CPT/HCPCS: 36415; 36591; 74176; 80048; 81003; 83605; 84145; 85025; 87040; 96361; 96365; 96375; 99283; 99284; J1885

== ENCOUNTER → 2018-12-03 12:22 | Outpatient (CLI) | payer MEDICARE, MEDICAID, SELFPAY ==
[2018-12-03 13:07] LABS: Hemoglobin A1C% w Est Avg Glu 11.6 % (4.0-6.0)
== END ==
PROVIDERS: PCP Family Medicine; Visit Provider Family Medicine
DX: E11.65 Type 2 diabetes mellitus with hyperglycemia (principal)
CPT/HCPCS: 36415; 83036

== ENCOUNTER 2019-03-23 13:38 | Emergency (ER) | payer MEDICARE, MEDICAID, SELFPAY ==
[2019-03-23 13:41] VITALS: BP 145/81; PULSE 126; RESP 24; TEMP 37.2; O2SAT 96
--- NOTE | 2019-03-23 13:51 | DI.RAD.S_ITS ---
PROCEDURE: XR CHEST 2V INDICATIONS: diabetic emergency, DKA? TECHNIQUE: 2 views of the chest were acquired. COMPARISON: [facility], CR, XR CHEST 1V, 07/13/2018, 2:44. FINDINGS: Surgical changes and devices: None. Lungs and pleura: No acute consolidation. Scattered subsegmental atelectasis and/or scarring. No pleural effusions or pneumothorax. Mediastinum: Mediastinal contours are normal. Heart size is normal. Bones and chest wall: No suspicious bony abnormalities. Soft tissues appear unremarkable. IMPRESSION: No acute disease Dictated by: Issa Steen M.D. on 03/23/2019 at 14:24 Approved by: Issa Steen M.D. on 03/23/2019 at 14:24
[2019-03-23 14:00] VITALS: BP 105/60; PULSE 113; RESP 28; O2SAT 94
[2019-03-23 14:06] LABS: Add Manual Diff / Slide Review NO; Basophils Absolute Auto 0 /uL (0-100); Basophils Percent Auto 0.3 % (0-2); Eosinophils Absolute Auto 100 /uL (0-450); Eosinophils Percent Auto 1.3 % (2-4); Hematocrit 39.7 % (36-46); Hemoglobin 13.1 g/dL (12.0-16.0); Lymphocytes Absolute Auto 3600 /uL (1100-4500); Lymphocytes Percent Auto 33.8 % (25-40); Mean Corpuscular Hemoglobin 27.6 PG (26-34); Mean Corpuscular Volume 83.4 fL (80-100); Monocytes Absolute Auto 600 /uL (0-900); Neutrophils Absolute Auto 6300 /uL (1500-7000); Neutrophils Percent Auto 58.6 % (50-75); Platelet Count 421 X10^3/uL (150-400); Red Blood Cell Count 4.76 X10^6/uL (4.0-5.2); Red Cell Distribution Width 16.8 % (11.6-14.8); White Blood Cell Count 10.7 X10^3/uL (4.5-11.0)
[2019-03-23] MEDS: SODIUM CHLORIDE 0.9% 1,000 ML 1000 ML IV ×2 (14:16→15:08)
[2019-03-23 14:17] LABS: Alanine Aminotransferase 22 IU/L (9-52); Albumin 4.6 g/dL (3.5-5.0); Albumin Globulin Ratio 1.1 (1.0-2.8); Alkaline Phosphatase 79 U/L (38-126); Aspartate Aminotransferase 32 IU/L (14-36); Bilirubin Total 0.4 mg/dL (0.2-1.3); Blood Urea Nitrogen 30 mg/dL (7-17); Calcium 11.6 mg/dL (8.4-10.2); Carbon Dioxide 20 mmol/L (22-32); Chloride 102 mmol/L (98-107); Estimated Glomerular Filt Rate 37.4 mL/min (>60); Globulin 4.1 g/dL (1.7-4.1); Glucose 212 mg/dL (70-100); HEMOLYSIS < 15 (0-50); Potassium 3.2 mmol/L (3.4-5.1); Sodium 139 mmol/L (137-145); Total Protein 8.7 g/dL (6.3-8.2)
--- NOTE | 2019-03-23 14:21 | ED.GENADULT ---
HPI - General Adult General Chief complaint: Diabetic Problem Stated complaint: slurring words,'out of it',diabetic blood is 462 Time Seen by Provider: 03/23/19 13:51 Source: patient and family Mode of arrival: ambulatory Limitations: no limitations History of Present Illness HPI narrative: 48-year-old female former smoker and medically noncompliant diabetic presents with a chief complaint of not feeling well. She states she stopped taking her insulin many months ago because she does not like giving herself shots. She denies any blurred vision, facial numbness or weakness nor unilateral or localizing muscle weakness. She states that she is slurring her words a small bit and has been for quite some time. At home her blood sugar measured over 400 and she decided to come to be seen. Onset (ago): week(s) Radiation: non-radiation Severity: moderate Relieving factors: none Exacerbating factors: none Associated symptoms: denies other symptoms Treatments prior to arrival: none Related Data Home Medications Medication Instructions Recorded Confirmed Disabled Parking Permit 1 stefani MISCELLANEOUS DIRECTED 08/19/18 03/23/19 [place] 1 pkg MISCELLANEOUS BID 08/19/18 03/23/19 Levemir U-100 Insulin 36 unit SUBCUT SEE INSTRUCTIONS 03/23/19 03/23/19 Novolog Flexpen U-100 Insulin 1 dose SUBCUT BID 03/23/19 03/23/19 albuterol sulfate 3 ml INH Q6HP PRN 03/23/19 03/23/19 cetirizine 10 mg PO DAILY PRN 03/23/19 03/23/19 dulaglutide [Trulicity] 0.5 ml SUBCUT QWEEK 03/23/19 03/23/19 fenofibrate 160 mg PO DAILY 03/23/19 03/23/19 fluoxetine 60 mg PO DAILY 03/23/19 03/23/19 lidocaine-prilocaine 1 applic TOPICAL DIRECTED 03/23/19 03/23/19 lisinopril 10 mg PO DAILY 03/23/19 03/23/19 metoclopramide HCl 10 mg PO ACHS PRN 03/23/19 03/23/19 nortriptyline 50 mg PO BEDTIME 03/23/19 03/23/19 rosuvastatin [Crestor] 40 mg PO DAILY 03/23/19 03/23/19 temazepam 30 mg PO BEDTIME 03/23/19 03/23/19 Previous Rx's Medication Instructions Recorded gabapentin 600 mg tablet 1,200 mg PO TID #540 tab 08/15/18 omeprazole 20 mg capsule,delayed 20 mg PO QDAY #30 cap 09/01/18 release metoprolol succinate ER 25 mg 25 mg PO BID #180 tab 10/08/18 tablet,extended release 24 hr oxycodone-acetaminophen 10 mg-325 1 - 2 tab PO Q6HP PRN #200 tab 11/21/18 mg tablet glimepiride 4 mg tablet 8 mg PO QAM #180 tab 12/04/18 Allergies Allergy/AdvReac Type Severity Reaction Status Date / Time Sulfa (Sulfonamide Allergy Severe hives Verified 11/10/18 14:09 Antibiotics) [SULFA (SULFONAMIDE ANTIBIOTICS)] Review of Systems Constitutional Denies chills, Denies fever(s), Denies lethargy and Reports weakness Eyes Denies change in vision, Denies eye discharge, Denies irritation and Denies loss of vision ENT Ears, Nose, Mouth, and Throat: Denies change in voice, Denies neck pain and Denies sore throat Cardiovascular Denies chest pain, Denies irregular heart rhythm, Denies lightheadedness, Denies palpitations, Denies dyspnea, Denies dyspnea on exertion and Denies orthopnea Respiratory Denies cough, Denies dyspnea, Denies dyspnea on exertion and Denies wheezing Gastrointestinal Gastrointestinal: Denies abdominal pain, Denies change in bowel habits, Denies diarrhea, Denies nausea and Denies vomiting Genitourinary Denies hematuria, Denies flank pain, Denies urinary incontinence and Denies urinary urgency Musculoskeletal Denies neck pain Integumentary/Breasts Denies pruritus, Denies erythema, Denies rash and Denies wounds Neurologic Denies confusion, Denies loss of vision and Reports weakness Psychiatric Denies anxiety, Denies confusion, Denies depression, Denies homicidal ideation and Denies suicidal ideation Endocrine Denies palpitations Hematologic/Lymphatic Denies easy bruising Allergic/Immunologic Denies wheezing PFSH Medical History Anxiety (Acute) Diabetes (Acute) Hyperlipidemia (Acute) Hypertension (Acute) Social History Smoking Status: Never smoker alcohol intake: never substance use type: does not use Social History Smoking Status: Never smoker alcohol intake: never substance use type: does not use Exam Narrative Exam Narrative: GENERAL: This is a well-nourished, well-developed patient, in mild distress. HEAD: Atraumatic. Normocephalic. No temporal or scalp tenderness. EYES: Pupils equal round and reactive. Extraocular motions intact. No scleral icterus. No injection or drainage. ENT: Nose without bleeding, purulent drainage or septal hematoma. Throat without erythema, tonsillar hypertrophy or exudate. Uvula midline. Airway patent. NECK: Trachea midline. No JVD or lymphadenopathy. Supple, nontender, no meningeal signs. CARDIOVASCULAR: Regular rate and rhythm without murmurs, gallops, or rubs. RESPIRATORY: Clear to auscultation. Breath sounds equal bilaterally. No wheezes, rales, or rhonchi. GASTROINTESTINAL: Abdomen soft, non-tender, nondistended. No hepato-splenomegaly, or palpable masses. No guarding. EXTREMITIES: No clubbing, cyanosis, or edema. No joint tenderness, effusion, or edema noted. BACK: Nontender without deformity or crepitance. No flank tenderness. NEURO: AOx3. SKIN: No rash or erythema. NIH Stroke Scale 1a. LOC: Patient is alert and keenly responsive (0) 1b. LOC Questions: Patient answers both LOC questions accurately (0) 1c. LOC Commands: Patient performs both tasks correctly (0) 2. Best Gaze: Normal (0) 3. Visual: No visual loss (0) 4. Facial palsy: Normal symmetrical movements (0) 5. Motor arm: No drift (0) 6. Motor leg: No drift (0) 7. Limb ataxia: Absent (0) 8. Sensory: Normal (0) 9. Best language: No aphasia; normal (0) 10. Dysarthria: Normal (0) 11. Extinction and inattention: No abnormality (0) NIHSS: 0 Initial Vital Signs Initial Vital Signs: Vital Signs Temperature 98.9 F 03/23/19 13:41 Pulse Rate 126 H 03/23/19 13:41 Respiratory Rate 24 03/23/19 13:41 Blood Pressure 145/81 H 03/23/19 13:41 Pulse Oximetry 96 03/23/19 13:41 Course Orders Ordered: ED Orders 03/23/19 13:47 Venous Blood Gas Stat 03/23/19 13:51 XR chest 2V Stat 03/23/19 13:55 Complete Blood Count AUTO DIFF Stat Comprehensive Metabolic Panel Stat Discontinued Medications Sodium Chloride (Normal Saline 0.9%) 1,000 mls @ 1,000 mls/hr IV BOLUS ONE Stop: 03/23/19 14:46 Last Infusion: 03/23/19 15:04 Dose: 0 mls/hr Admin: 03/23/19 14:16 Dose: 1,000 mls/hr Sodium Chloride (Normal Saline 0.9%) 1,000 mls @ 1,000 mls/hr IV BOLUS ONE Stop: 03/23/19 16:04 Last Infusion: 03/23/19 15:56 Dose: 0 mls/hr Admin: 03/23/19 15:08 Dose: 1,000 mls/hr Ondansetron HCl (Zofran) 4 mg IV NOW ONE Stop: 03/23/19 13:48 Last Admin: 03/23/19 14:23 Dose: 4 mg Potassium Chloride (Potassium Chloride) 40 meq PO NOW ONE Stop: 03/23/19 14:53 Last Admin: 03/23/19 15:10 Dose: 40 meq Reevaluation(s) Reevaluation #1: Patient demonstrates tremendous improvement after a few bags of fluid. She was clinically quite dehydrated with dry mucous membranes on arrival and has notable improvement in vital signs and clinical picture after fluids. Vital Signs - 8 hr 03/23/19 13:41 03/23/19 14:00 03/23/19 15:00 Temperature 98.9 F Pulse Rate 126 H 113 H 101 H Respiratory Rate 24 28 H 25 H Blood Pressure 145/81 H Blood Pressure [Left Arm] 105/60 103/58 L Pulse Oximetry 96 94 96 03/23/19 15:30 03/23/19 16:00 03/23/19 17:05 Temperature 98.7 F Pulse Rate 100 H 127 H 85 Respiratory Rate 25 H 26 H 14 Blood Pressure 137/61 Blood Pressure [Left Arm] 122/62 105/56 L Pulse Oximetry 100 100 Medical Decision Making Lab Data Result diagrams: 03/23/19 13:55 03/23/19 13:55 Lab Results 03/23/19 03/23/19 03/23/19 Range/Units 13:47 13:55 13:55 WBC 10.7 (4.5-11.0) X10^3/uL RBC 4.76 (4.0-5.2) X10^6/uL Hgb 13.1 (12.0-16.0) g/dL Hct 39.7 (36-46) % MCV 83.4 (80-100) fL MCH 27.6 (26-34) PG MCHC 33.0 (30-36) % RDW 16.8 H (11.6-14.8) % Plt Count 421 H (150-400) X10^3/uL Neut % (Auto) 58.6 (50-75) % Lymph % (Auto) 33.8 (25-40) % [place] % (Auto) 6.0 (3-14) % Eos % (Auto) 1.3 L (2-4) % Baso % (Auto) 0.3 (0-2) % Neut # (Auto) 6300 (6046-5363) /uL Lymph # (Auto) 3600 (5032-6369) /uL [place] # (Auto) 600 (0-900) /uL Eos # (Auto) 100 (0-450) /uL Baso # (Auto) 0 (0-100) /uL VBG pH 7.41 (7.33-7.43) VBG pCO2 32.8 L (45-50) mmHg VBG pO2 29 L (35-45) mmHg VBG HCO3 21 L (23-28) mmol/L VBG Total CO2 22 L (24-29) mmol/L VBG O2 Saturation 56 L (70-75) % VBG Base Excess -4.0 L (0-4) mmol/L Sodium 139 (137-145) mmol/L Potassium 3.2 L (3.4-5.1) mmol/L Chloride 102 (98-107) mmol/L Carbon Dioxide 20 L (22-32) mmol/L BUN 30 H (7-17) mg/dL Creatinine 1.50 H (0.52-1.04) mg/dL Estimated GFR 37.4 L (>60) mL/min BUN/Creatinine Ratio 20.0 (6-22) Glucose 212 H (70-100) mg/dL Calcium 11.6 H (8.4-10.2) mg/dL Total Bilirubin 0.4 (0.2-1.3) mg/dL AST 32 (14-36) IU/L ALT 22 (9-52) IU/L Alkaline Phosphatase 79 (38-126) U/L Total Protein 8.7 H (6.3-8.2) g/dL Albumin 4.6 (3.5-5.0) g/dL Globulin 4.1 (1.7-4.1) g/dL Albumin/Globulin Ratio 1.1 (1.0-2.8) Point of Care Testing Glucose POC 235 Point of care testing: Point of Care Testing Glucose POC 235 MDM Narrative Medical decision making narrative: Multiple etiologies for patient's symptoms considered including: [Dehydration versus DKA versus other hyperglycemia versus kidney trouble versus stroke versus other] Patient's symptoms improved or duration of stay with above-stated therapies. Findings and discharge diagnosis discussed with patient/family followed by verbalization of understanding Return precautions discussed with patient/family whom verbalize understanding. Discharge Plan Departure Patient Disposition: Home Clinical Impression: Acute dehydration, Acute hyperglycemia, Medical non-compliance Discharge Date/Time: 03/23/19 17:06 Interventions: ED Discharge Assessment Last Done: 03/23/19 17:05 Activity Restrictions/Additional Instructions: 1. Drink plenty of fluids with frequent small sips. 2. For the next 24 hours a clear liquid diet is advised. After that please employ a brat diet which would include bananas, rice, apples, toast. 3. Please take medications as directed. 4. Please follow-up with your doctor in the next 1-2 days. Call the office for an appointment. 5. Please return to the emergency Department for any worsening or persistent symptoms, such as increasing pain or fever. Prescriptions: No Action gabapentin [Neurontin] 600 mg tablet 1,200 mg PO TID Qty: 540 RF: 0 omeprazole 20 mg capsule,delayed release(DR/EC) 20 mg PO QDAY Qty: 30 RF: 3 metoprolol succinate [Toprol XL] 25 mg tablet extended release 24 hr 25 mg PO BID Qty: 180 RF: 3 oxycodone-acetaminophen [Percocet] 10-325 mg tablet 1 - 2 tab PO Q6HP PRN (Reason: pain) Qty: 200 RF: 0 glimepiride 4 mg tablet 8 mg PO QAM Qty: 180 RF: 3 Disabled Parking Permit 1 stefani miscellaneous DIRECTED RF: 0 [place] 1 pkg miscellaneous BID RF: 0 Trulicity 1.5 mg/0.5 mL pen injector 0.5 ml subcut QWEEK RF: 0 lisinopril 5 mg tablet 10 mg PO DAILY RF: 0 fluoxetine 20 mg capsule 60 mg PO DAILY RF: 0 fenofibrate 160 mg tablet 160 mg PO DAILY RF: 0 cetirizine 10 mg Tablet 10 mg PO DAILY PRN (Reason: Allergy Symptoms) RF: 0 lidocaine-prilocaine 2.5-2.5 % cream 1 applic topical DIRECTED RF: 0 albuterol sulfate 2.5 MG/3 ML solution for nebulization 3 ml INH Q6HP PRN (Reason: Shortness Of Breath) RF: 0 temazepam 30 mg capsule 30 mg PO BEDTIME RF: 0 nortriptyline 50 mg capsule 50 mg PO BEDTIME RF: 0 metoclopramide HCl 10 mg tablet 10 mg PO ACHS PRN (Reason: Nausea) RF: 0 Novolog Flexpen U-100 Insulin 100 unit/mL insulin pen 1 dose SUBCUT BID RF: 0 rosuvastatin [Crestor] 40 mg tablet 40 mg PO DAILY RF: 0 Levemir U-100 Insulin 100 unit/mL solution 36 unit SUBCUT SEE INSTRUCTIONS RF: 0 Referrals: Ernesto Tom MD [Primary Care Provider] -
[2019-03-23] MEDS: ONDANSETRON 4 MG/2 ML INJ IV (14:23)
[2019-03-23 15:00] VITALS: BP 103/58; PULSE 101; RESP 25; O2SAT 96
[2019-03-23] MEDS: POTASSIUM CHLORIDE 20 MEQ/15 ML UDC 40 MEQ PO (15:10)
[2019-03-23 15:14] LABS: HCO3 VBG 21 mmol/L (23-28); PCO2 VBG 32.8 mmHg (45-50); PO2 VBG 29 mmHg (35-45); Total CO2 VBG 22 mmol/L (24-29); pH VBG 7.41 (7.33-7.43)
[2019-03-23 15:15] LABS: Oxygen Saturation VBG 56 % (70-75)
[2019-03-23 15:30] VITALS: BP 122/62; PULSE 100; RESP 25
[2019-03-23 16:00] VITALS: BP 105/56; PULSE 127; RESP 26; O2SAT 100
[2019-03-23 17:05] VITALS: BP 137/61; PULSE 85; RESP 14; TEMP 37.1; O2SAT 100
== END 2019-03-23 17:06 | disposition home or self-care (01) ==
PROVIDERS: Emergency Provider Emergency Medicine; PCP Family Medicine
DX: E86.0 Dehydration (principal); R73.9 Hyperglycemia, unspecified; Z91.19 Patient's noncompliance with other medical treatment and regimen
CPT/HCPCS: 71046; 80053; 82805; 82962; 85025; 96361; 96374; 99283; 99284; J2405

== ENCOUNTER 2019-08-07 13:24 | Emergency (ER) | payer MEDICARE, MEDICAID, SELFPAY ==
[2019-08-07 13:28] VITALS: BP 221/93; PULSE 84; RESP 22; TEMP 36.3; O2SAT 97; BMI 28.8
--- NOTE | 2019-08-07 14:48 | ED_ITS ---
HPI - General Adult General Chief complaint: Eye Problems Stated complaint: blured vision x24 hours, can not concentrate Time Seen by Provider: 08/07/19 14:18 Source: patient Mode of arrival: Ambulatory Limitations: no limitations History of Present Illness HPI narrative: 49-year-old female here for evaluation of blurry vision for 24 hours. Patient does wear corrective lenses. States that for the past 24 hours has she looks at something special when she is reading she starts to get blurry vision. She denies it as a double vision. She states that the words become blurry. It starts off that she still can read however it slowly progresses the point to where her eyes are very blurry. She then closes her eyes and when she opens and she can see normally again. No other associated symptoms. Contact her primary doctor to come to the emergency department. Related Data Home Medications Medication Instructions Recorded Confirmed Disabled Parking Permit 1 stefani MISCELLANEOUS DIRECTED 08/19/18 03/23/19 [place] 1 pkg MISCELLANEOUS BID 08/19/18 03/23/19 Levemir U-100 Insulin 36 unit SUBCUT SEE INSTRUCTIONS 03/23/19 03/23/19 Novolog Flexpen U-100 Insulin 1 dose SUBCUT BID 03/23/19 03/23/19 albuterol sulfate 3 ml INH Q6HP PRN 03/23/19 03/23/19 cetirizine 10 mg PO DAILY PRN 03/23/19 03/23/19 dulaglutide [Trulicity] 0.5 ml SUBCUT QWEEK 03/23/19 03/23/19 fenofibrate 160 mg PO DAILY 03/23/19 03/23/19 fluoxetine 60 mg PO DAILY 03/23/19 08/07/19 lidocaine-prilocaine 1 applic TOPICAL DIRECTED 03/23/19 03/23/19 metoclopramide HCl 10 mg PO ACHS PRN 03/23/19 08/07/19 nortriptyline 50 mg PO BEDTIME 03/23/19 03/23/19 temazepam 30 mg PO BEDTIME 03/23/19 03/23/19 atorvastatin 80 mg PO DAILY 08/07/19 08/07/19 empagliflozin [Jardiance] 25 mg PO DAILY 08/07/19 08/07/19 lisinopril 20 mg PO DAILY 08/07/19 08/07/19 omeprazole 20 mg PO BID 08/07/19 08/07/19 rosuvastatin 20 mg PO DAILY 08/07/19 08/07/19 Previous Rx's Medication Instructions Recorded gabapentin 600 mg tablet 1,200 mg PO TID #540 tab 08/15/18 metoprolol succinate 25 mg 25 mg PO BID #180 tab 10/08/18 tablet,extended release 24 hr oxycodone-acetaminophen 10 mg-325 1 - 2 tab PO Q6HP PRN #200 tab 11/21/18 mg tablet glimepiride 4 mg tablet 8 mg PO QAM #180 tab 12/04/18 Allergies Allergy/AdvReac Type Severity Reaction Status Date / Time Sulfa (Sulfonamide Allergy Severe hives Verified 08/07/19 13:28 Antibiotics) [SULFA (SULFONAMIDE ANTIBIOTICS)] Review of Systems Constitutional Constitutional: Denies chills, Denies fever(s), Denies frequent falls, Denies headache(s), Denies lethargy and Denies weakness Eyes Eyes: Reports blurry vision, Reports change in vision, Denies diplopia, Denies eye discharge, Denies dry eyes, Denies floaters, Denies irritation, Denies itchy eyes, Denies loss of vision, Denies eye pain, Reports requires corrective lenses, Denies seeing flashes, Denies photophobia and Denies spots in vision ENT Ears, Nose, Mouth, and Throat: Denies change in voice, Denies vertigo, Denies dizziness, Denies headache(s), Denies mouth pain, Denies neck mass, Denies disequilibrium, Denies tinnitus, Denies sore throat and Denies throat swelling Cardiovascular Cardiovascular: Denies chest pain and Denies dyspnea Respiratory Respiratory: Denies cough and Denies dyspnea Gastrointestinal Gastrointestinal: Denies melena Genitourinary Genitourinary: Denies dysuria Musculoskeletal Musculoskeletal: Denies myalgias, Denies arthralgias, Denies numbness and Denies tingling Integumentary/Breasts Skin/Breast: Denies lesions and Denies rash Neurologic Neurologic: Denies abnormal movements, Denies abnormal speech, Denies behavioral changes, Denies confusion, Denies vertigo, Denies dizziness, Denies frequent falls, Denies headache(s), Denies focal weakness, Denies loss of vision, Denies memory loss, Denies numbness, Denies restless legs, Denies convulsions, Denies sensory deficit, Denies tingling, Denies paresthesias, Denies tremor(s), Denies disequilibrium and Denies weakness Psychiatric Psychiatric: Denies behavioral changes, Denies confusion and Denies memory loss Hematologic/Lymphatic Hematologic/Lymphatic: Denies easy bleeding and Denies easy bruising Allergic/Immunologic Allergic/Immunologic: Denies itchy eyes and Denies throat swelling [facility] Medical History Anxiety (Acute) Diabetes (Acute) Hyperlipidemia (Acute) Hypertension (Acute) Social History Smoking Status: Never smoker alcohol intake: never substance use type: does not use Exam Initial Vital Signs Initial Vital Signs: Vital Signs Temperature 97.4 F L 08/07/19 13:28 Pulse Rate 84 08/07/19 13:28 Respiratory Rate 22 08/07/19 13:28 Blood Pressure 221/93 H 08/07/19 13:28 Pulse Oximetry 97 08/07/19 13:28 Const General: cooperative, comfortable, well developed, well groomed and acute distress Orientation: alert, awake and oriented x3 HENMT Head: normal to inspection and normocephalic Nose: external nose normal Face and sinus: normal facial exam Mouth: oral mucosae normal Eyes General: appearance normal, both eyes and all related structures Alignment and Position: alignment normal Eyelids: eyelids normal Conjunctivae: conjunctivae normal Pupils: PERRL EOM: EOM intact bilaterally Resp Effort & Inspection: normal respiratory effort Auscultation: clear to auscultation bilaterally Cardio Rate: regular rate Rhythm: regular rhythm GI Inspection: non-distended Palpation: soft Skin Lesions: no lesions Rashes: no rashes Neuro General: alert and awake Cranial Nerves: CN's II-XI intact bilaterally Cognition: normal cognition Speech: speech normal Gait: normal gait Motor: muscle tone normal throughout Sensory Exam: no sensory deficits noted Extrem General: normal to inspection and capillary refill normal Psych Appearance: grossly normal and well kempt Course Orders Ordered: ED Orders 08/07/19 14:50 CT head/brain wo con Stat EKG-12 Lead Stat 08/07/19 15:08 Complete Blood Count AUTO DIFF Stat Comprehensive Metabolic Panel Stat Lipase Stat Discontinued Medications Sodium Chloride (Normal Saline 0.9%) 1,000 mls @ 1,000 mls/hr IV BOLUS ONE Stop: 08/07/19 15:48 Vital Signs Vital signs: Vital Signs - 8 hr 08/07/19 13:28 08/07/19 15:21 Temperature 97.4 F L Pulse Rate 84 81 Respiratory Rate 22 16 Blood Pressure 221/93 H Blood Pressure [Left Arm] 174/97 H Pulse Oximetry 97 99 Medical Decision Making Lab Data Lab results reviewed: Yes I reviewed the patient's lab results. Result diagrams: 08/07/19 15:08 08/07/19 15:08 Labs: Lab Results 08/07/19 08/07/19 Range/Units 15:08 15:08 WBC 8.0 (4.5-11.0) X10^3/uL RBC 4.61 (4.0-5.2) X10^6/uL Hgb 12.6 (12.0-16.0) g/dL Hct 37.9 (36-46) % MCV 82.1 (80-100) fL MCH 27.4 (26-34) PG MCHC 33.4 (30-36) % RDW 13.9 (11.6-14.8) % Plt Count 232 (150-400) X10^3/uL Neut % (Auto) 52.2 (50-75) % Lymph % (Auto) 34.3 (25-40) % [place] % (Auto) 9.8 (3-14) % Eos % (Auto) 2.3 (2-4) % Baso % (Auto) 1.4 (0-2) % Neut # (Auto) 4200 (8740-8539) /uL Lymph # (Auto) 2800 (0428-8024) /uL [place] # (Auto) 800 (0-900) /uL Eos # (Auto) 200 (0-450) /uL Baso # (Auto) 100 (0-100) /uL Sodium 137 (137-145) mmol/L Potassium 3.5 (3.4-5.1) mmol/L Chloride 100 (98-107) mmol/L Carbon Dioxide 22 (22-32) mmol/L BUN 8 (7-17) mg/dL Creatinine 0.70 (0.52-1.04) mg/dL Estimated GFR > 60.0 (>60) mL/min BUN/Creatinine Ratio 11.4 (6-22) Glucose 135 H (70-100) mg/dL Calcium 9.4 (8.4-10.2) mg/dL Total Bilirubin 0.3 (0.2-1.3) mg/dL AST 19 (14-36) IU/L ALT 17 (9-52) IU/L Alkaline Phosphatase 108 (38-126) U/L Total Protein 7.9 (6.3-8.2) g/dL Albumin 4.5 (3.5-5.0) g/dL Globulin 3.4 (1.7-4.1) g/dL Albumin/Globulin Ratio 1.3 (1.0-2.8) Lipase 250 (23-300) U/L Imaging Data CT scan - head: Radiologist's impression: [address] [address] [address] Scan Report Signed Patient: Maria Teresa Villalobos MMR#: [id number] : 1970Acct:[id number] Age/Sex: 49 / FDate of Service: 08/07/19 Loc: ED Accession Number: [id number] Procedure: CT head/brain wo con Ordering Provider: Satya Wright D.O. PROCEDURE: CT HEAD/BRAIN WO CON INDICATIONS: Blurry vision TECHNIQUE: Noncontrast 4.5 mm thick angled axial sections acquired from the foramen magnum to the vertex, with coronal and sagittal reformats. For radiation dose reduction, the following was used: automated exposure control, adjustment of mA and/or kV according to patient size. COMPARISON: [facility], CT, HEAD WITHOUT CONTRAST, 04/01/2016, 11:10. FINDINGS: Image quality: Excellent. CSF spaces: Basal cisterns are patent. No extra-axial fluid collections. Ventricles are normal in size and shape. Brain: No midline shift. No intracranial masses or hemorrhage. Man-white matter interface is normal. Skull and face: Calvarium and visualized facial bones are intact, without suspicious lesions. Sinuses: Visualized sinuses and mastoids are clear. IMPRESSION: No CT evidence of acute process. Dictated by: Sharlene Morgan M.D. on 08/07/2019 at 15:23 Approved by: Sharlene Morgan M.D. on 08/07/2019 at 15:27 ECG Data Attestation: I personally reviewed and interpreted this ECG as follows: Prior ECG tracings: not available for review Interpretation: Sinus rhythm Normal axis Ventricular rate 83 Normal QRS, nonspecific ST T wave changes MDM Narrative Medical decision making narrative: Patient has a normal neurologic exam other than the subjective blurry vision. She states this improves when she closes her eyes. She has no diplopia. No extraocular muscle issues. Head CT was negative. Low suspicion for CVA given her physical exam. She has not seen an eye doctor in over a year. I do suspect that this could be the cause of her symptoms. She has an appointment with her eye provider next week. She was given return precautions and follow-up instructions. She expressed understanding and agreement with plan. Discharge Plan Departure Patient Disposition: Home Clinical Impression: Blurred vision Activity Restrictions/Additional Instructions: I recommend you continue all of your medications as directed. Contact your primary provider to discuss further workup of your diabetes. Keep your scheduled appointment with your eye doctor next week. Return to the emergency department for any new or worsening symptoms Prescriptions: No Action gabapentin [Neurontin] 600 mg tablet 1,200 mg PO TID Qty: 540 RF: 0 metoprolol succinate [Toprol XL] 25 mg tablet extended release 24 hr 25 mg PO BID Qty: 180 RF: 3 oxycodone-acetaminophen [Percocet] 10-325 mg tablet 1 - 2 tab PO Q6HP PRN (Reason: pain) Qty: 200 RF: 0 glimepiride 4 mg tablet 8 mg PO QAM Qty: 180 RF: 3 Disabled Parking Permit 1 stefani miscellaneous DIRECTED RF: 0 [place] 1 pkg miscellaneous BID RF: 0 Trulicity 1.5 mg/0.5 mL pen injector 0.5 ml subcut QWEEK RF: 0 fluoxetine 20 mg capsule 60 mg PO DAILY RF: 0 fenofibrate 160 mg tablet 160 mg PO DAILY RF: 0 cetirizine 10 mg Tablet 10 mg PO DAILY PRN (Reason: Allergy Symptoms) RF: 0 lidocaine-prilocaine 2.5-2.5 % cream 1 applic topical DIRECTED RF: 0 albuterol sulfate 2.5 MG/3 ML solution for nebulization 3 ml INH Q6HP PRN (Reason: Shortness Of Breath) RF: 0 temazepam 30 mg capsule 30 mg PO BEDTIME RF: 0 nortriptyline 50 mg capsule 50 mg PO BEDTIME RF: 0 metoclopramide HCl 10 mg tablet 10 mg PO ACHS PRN (Reason: Nausea) RF: 0 Novolog Flexpen U-100 Insulin 100 unit/mL insulin pen 1 dose SUBCUT BID RF: 0 Levemir U-100 Insulin 100 unit/mL solution 36 unit SUBCUT SEE INSTRUCTIONS RF: 0 atorvastatin 80 mg tablet 80 mg PO DAILY RF: 0 Jardiance 25 mg tablet 25 mg PO DAILY RF: 0 lisinopril 20 mg tablet 20 mg PO DAILY RF: 0 rosuvastatin 20 mg tablet 20 mg PO DAILY RF: 0 omeprazole 20 mg capsule,delayed release(DR/EC) 20 mg PO BID RF: 0
[2019-08-07] MEDS: SODIUM CHLORIDE 0.9% 1,000 ML 1000 ML IV (15:10)
[2019-08-07 15:21] VITALS: BP 174/97; PULSE 81; RESP 16; O2SAT 99
[2019-08-07 15:22] LABS: Add Manual Diff / Slide Review NO; Basophils Absolute Auto 100 /uL (0-100); Basophils Percent Auto 1.4 % (0-2); Eosinophils Absolute Auto 200 /uL (0-450); Eosinophils Percent Auto 2.3 % (2-4); Hematocrit 37.9 % (36-46); Hemoglobin 12.6 g/dL (12.0-16.0); Lymphocytes Absolute Auto 2800 /uL (1100-4500); Lymphocytes Percent Auto 34.3 % (25-40); Mean Corpuscular HGB Conc 33.4 % (30-36); Mean Corpuscular Hemoglobin 27.4 PG (26-34); Mean Corpuscular Volume 82.1 fL (80-100); Monocytes Absolute Auto 800 /uL (0-900); Monocytes Percent Auto 9.8 % (3-14); Neutrophils Absolute Auto 4200 /uL (1500-7000); Neutrophils Percent Auto 52.2 % (50-75); Platelet Count 232 X10^3/uL (150-400); Red Blood Cell Count 4.61 X10^6/uL (4.0-5.2); Red Cell Distribution Width 13.9 % (11.6-14.8)
[2019-08-07 15:30] VITALS: BP 174/88; PULSE 80; RESP 16; O2SAT 99
[2019-08-07 15:33] LABS: Alanine Aminotransferase 17 IU/L (9-52); Albumin 4.5 g/dL (3.5-5.0); Albumin Globulin Ratio 1.3 (1.0-2.8); Alkaline Phosphatase 108 U/L (38-126); Aspartate Aminotransferase 19 IU/L (14-36); BUN Creatinine Ratio 11.4 (6-22); Bilirubin Total 0.3 mg/dL (0.2-1.3); Blood Urea Nitrogen 8 mg/dL (7-17); Calcium 9.4 mg/dL (8.4-10.2); Carbon Dioxide 22 mmol/L (22-32); Chloride 100 mmol/L (98-107); Estimated Glomerular Filt Rate > 60.0 mL/min (>60); Globulin 3.4 g/dL (1.7-4.1); Glucose 135 mg/dL (70-100); HEMOLYSIS < 15 (0-50); Lipase 250 U/L (23-300); Potassium 3.5 mmol/L (3.4-5.1); Sodium 137 mmol/L (137-145); Total Protein 7.9 g/dL (6.3-8.2)
[2019-08-07 16:30] VITALS: BP 174/88; PULSE 82; RESP 16; O2SAT 99
== END 2019-08-07 16:42 | disposition home or self-care (01) ==
PROVIDERS: Emergency Provider Emergency Medicine
DX: H53.8 Other visual disturbances (principal); R07.9 Chest pain, unspecified
CPT/HCPCS: 36415; 70450; 80053; 83690; 85025; 93005; 93010; 99283; 99285

== ENCOUNTER → 2019-08-12 11:55 | Outpatient (CLI) | payer MEDICARE, MEDICAID, SELFPAY ==
[2019-08-12 12:46] LABS: Hemoglobin A1C% w Est Avg Glu 9.3 % (4.0-6.0)
[2019-08-12 13:06] LABS: Alanine Aminotransferase 22 IU/L (9-52); Albumin 4.5 g/dL (3.5-5.0); Albumin Globulin Ratio 1.4 (1.0-2.8); Alkaline Phosphatase 136 U/L (38-126); Aspartate Aminotransferase 18 IU/L (14-36); BUN Creatinine Ratio 12.9 (6-22); Bilirubin Total 0.5 mg/dL (0.2-1.3); Blood Urea Nitrogen 9 mg/dL (7-17); Carbon Dioxide 27 mmol/L (22-32); Chloride 94 mmol/L (98-107); Cholesterol 187 mg/dL (140-199); Estimated Glomerular Filt Rate > 60.0 mL/min (>60); Globulin 3.2 g/dL (1.7-4.1); Glucose 109 mg/dL (70-100); HDL Cholesterol 47 mg/dL (40-60); HEMOLYSIS < 15 (0-50); LDL Cholesterol Calculated 108 mg/dL (<100); Potassium 3.6 mmol/L (3.4-5.1); Sodium 136 mmol/L (137-145); Total Protein 7.7 g/dL (6.3-8.2); Triglycerides 162 mg/dL (35-150)
== END ==
PROVIDERS: Visit Provider Nurse Practitioner
DX: E11.65 Type 2 diabetes mellitus with hyperglycemia (principal); I10 Essential (primary) hypertension; E78.2 Mixed hyperlipidemia
CPT/HCPCS: 36415; 80053; 80061; 83036

== ENCOUNTER 2019-09-30 14:05 | Emergency (ER) | payer MEDICARE, MEDICAID, SELFPAY ==
[2019-09-30 14:09] VITALS: BP 136/86; PULSE 103; RESP 14; TEMP 37.6; O2SAT 96; BMI 27.4
--- NOTE | 2019-09-30 14:13 | ED.GENADULT ---
HPI - General Adult General Chief complaint: Syncope Stated complaint: syncople Time Seen by Provider: 09/30/19 14:08 Source: patient Mode of arrival: EMS Limitations: no limitations History of Present Illness HPI narrative: 49-year-old female brought in by EMS for a syncopal episode. Patient states for the past 10 days or so she has been ?sick? she describes this as chest congestion and coughing and subjective fevers and congestion. Has not taken anything for this. Other than that was at her normal state health when she was sitting in the dental office with her son. Her son was getting dental work done. She states that she was sitting at the time when she became very lightheaded. She does not describe a vertigo sensation. She does states she got tunnel vision and her hearing became very loud. She also had sweaty palms. She says the next thing she remembers she was on the ground. No loss of bowel or bladder. Was not confused afterwards. Prior to the loss of consciousness had no chest pain or shortness of breath or headache. She states this has happened to her in the past when she had pneumonia. EMS was called. When EMS arrived on there normal monitoring they found that her CO level was 12. Patient states that she was a smoker 20 years ago but nothing recently. EMS reports that they did evaluate the dentist office for gas and there was no gas leak. There were no other individuals at the clinic reporting any symptoms. Related Data Home Medications Medication Instructions Recorded Confirmed Disabled Parking Permit 1 stefani MISCELLANEOUS DIRECTED 08/19/18 03/23/19 [place] 1 pkg MISCELLANEOUS BID 08/19/18 03/23/19 Levemir U-100 Insulin 36 unit SUBCUT SEE INSTRUCTIONS 03/23/19 03/23/19 Novolog Flexpen U-100 Insulin 1 dose SUBCUT BID 03/23/19 03/23/19 albuterol sulfate 3 ml INH Q6HP PRN 03/23/19 03/23/19 cetirizine 10 mg PO DAILY PRN 03/23/19 03/23/19 dulaglutide [Trulicity] 0.5 ml SUBCUT QWEEK 03/23/19 03/23/19 fenofibrate 160 mg PO DAILY 03/23/19 03/23/19 fluoxetine 60 mg PO DAILY 03/23/19 09/30/19 lidocaine-prilocaine 1 applic TOPICAL DIRECTED 03/23/19 03/23/19 metoclopramide HCl 10 mg PO ACHS PRN 03/23/19 09/30/19 nortriptyline 50 mg PO BEDTIME 03/23/19 03/23/19 temazepam 30 mg PO BEDTIME 03/23/19 03/23/19 atorvastatin 80 mg PO DAILY 08/07/19 08/07/19 empagliflozin [Jardiance] 25 mg PO DAILY 08/07/19 09/30/19 lisinopril 20 mg PO DAILY 08/07/19 09/30/19 omeprazole 20 mg PO BID 08/07/19 09/30/19 rosuvastatin 20 mg PO DAILY 08/07/19 09/30/19 Previous Rx's Medication Instructions Recorded gabapentin 600 mg tablet 1,200 mg PO TID #540 tab 08/15/18 metoprolol succinate 25 mg 25 mg PO BID #180 tab 10/08/18 tablet,extended release 24 hr oxycodone-acetaminophen 10 mg-325 1 - 2 tab PO Q6HP PRN #200 tab 11/21/18 mg tablet glimepiride 4 mg tablet 8 mg PO QAM #180 tab 12/04/18 Allergies Allergy/AdvReac Type Severity Reaction Status Date / Time Sulfa (Sulfonamide Allergy Severe hives Verified 09/30/19 14:09 Antibiotics) [SULFA (SULFONAMIDE ANTIBIOTICS)] Review of Systems Constitutional Constitutional: Denies fever(s), Denies headache(s) and Denies weakness ENT Ears, Nose, Mouth, and Throat: Denies vertigo, Reports dizziness and Denies headache(s) Cardiovascular Cardiovascular: Denies chest pain, Reports syncope, Denies edema, Denies palpitations and Denies dyspnea Respiratory Respiratory: Denies dyspnea Gastrointestinal Gastrointestinal: Denies abdominal pain, Denies nausea and Denies vomiting Genitourinary Genitourinary: Denies dysuria Musculoskeletal Musculoskeletal: Denies myalgias and Denies arthralgias Integumentary/Breasts Skin/Breast: Denies lesions and Denies rash Neurologic Neurologic: Denies behavioral changes, Denies confusion, Denies vertigo, Reports dizziness, Reports syncope, Denies headache(s) and Denies weakness Psychiatric Psychiatric: Denies behavioral changes and Denies confusion Endocrine Endocrine: Denies palpitations Hematologic/Lymphatic Hematologic/Lymphatic: Denies easy bleeding and Denies easy bruising Allergic/Immunologic Allergic/Immunologic: Denies urticaria Patient History Medical History Anxiety (Acute) Diabetes (Acute) Hyperlipidemia (Acute) Hypertension (Acute) Social History Smoking Status: Never smoker alcohol intake: never substance use type: does not use alcohol intake frequency: holidays/special occasions only Substance Use Type: does not use Exam Initial Vital Signs Initial Vital Signs: Vital Signs Temperature 99.7 F H 09/30/19 14:09 Pulse Rate 103 H 09/30/19 14:09 Respiratory Rate 14 09/30/19 14:09 Blood Pressure 136/86 09/30/19 14:09 Pulse Oximetry 96 09/30/19 14:09 Const General: cooperative and comfortable Orientation: alert, awake and oriented x3 HENMT Head: normal to inspection, normocephalic and atraumatic Resp Effort & Inspection: normal respiratory effort Auscultation: clear to auscultation bilaterally Cardio Rate: regular rate Rhythm: regular rhythm Pulses: radial pulses present GI Inspection: non-distended Palpation: soft, No firm and No tender Skin Lesions: no lesions Rashes: no rashes Neuro General: alert, awake and oriented x3 Cognition: normal cognition Speech: speech normal Gait: normal gait Motor: muscle tone normal throughout Sensory Exam: no sensory deficits noted Extrem General: normal to inspection and capillary refill normal Psych Appearance: grossly normal and well kempt Course Orders Ordered: ED Orders 09/30/19 14:05 Complete Blood Count AUTO DIFF Stat Comprehensive Metabolic Panel Stat Ethanol (ETOH) Stat Lipase Stat Test Serum,Qual Stat Procalcitonin Stat Troponin I Stat 09/30/19 14:11 EKG-12 Lead Stat 09/30/19 14:23 XR chest 1V Stat 09/30/19 14:30 Arterial Blood Gas Stat Sodium Chloride (Normal Saline 0.9%) 1,000 mls @ 1,000 mls/hr IV BOLUS ONE Stop: 09/30/19 15:08 Last Admin: 09/30/19 14:17 Dose: 1,000 mls/hr Documented by: ARRINGTO Vital Signs Vital signs: Vital Signs - 8 hr 09/30/19 14:09 09/30/19 14:32 09/30/19 14:39 Temperature 99.7 F H Pulse Rate 103 H 105 H 96 H Respiratory Rate 14 16 14 Blood Pressure 136/86 Blood Pressure [Left Arm] 137/98 H 137/98 H Pulse Oximetry 96 99 100 Medical Decision Making Lab Data Lab results reviewed: Yes I reviewed the patient's lab results. Result diagrams: 09/30/19 14:05 09/30/19 14:05 Labs: Lab Results 09/30/19 09/30/19 09/30/19 Range/Units 14:05 14:05 14:05 WBC 12.6 H (4.5-11.0) X10^3/uL RBC 4.47 (4.0-5.2) X10^6/uL Hgb 12.4 (12.0-16.0) g/dL Hct 36.7 (36-46) % MCV 82.1 (80-100) fL MCH 27.8 (26-34) PG MCHC 33.9 (30-36) % RDW 16.2 H (11.6-14.8) % Plt Count 268 (150-400) X10^3/uL Neut % (Auto) 53.8 (50-75) % Lymph % (Auto) 34.1 (25-40) % [place] % (Auto) 11.3 (3-14) % Eos % (Auto) 0.1 L (2-4) % Baso % (Auto) 0.7 (0-2) % Neut # (Auto) 6800 (1077-2986) /uL Lymph # (Auto) 4300 (1752-5002) /uL [place] # (Auto) 1400 H (0-900) /uL Eos # (Auto) 0 (0-450) /uL Baso # (Auto) 100 (0-100) /uL ABG pH (7.35-7.45) ABG pCO2 (35-45) mmHg ABG pO2 (80-100) mmHg ABG HCO3 (22-26) mmol/L ABG Total CO2 (21-31) mmol/L ABG O2 Saturation (95-100) % ABG Base Excess (-2-2) mmol/L FiO2 Sodium 129 L (137-145) mmol/L Potassium 3.6 (3.4-5.1) mmol/L Chloride 87 L (98-107) mmol/L Carbon Dioxide 24 (22-32) mmol/L BUN 25 H (7-17) mg/dL Creatinine 0.70 (0.52-1.04) mg/dL Estimated GFR > 60.0 (>60) mL/min BUN/Creatinine Ratio 35.7 H (6-22) Glucose 116 H (70-100) mg/dL Calcium 9.1 (8.4-10.2) mg/dL Total Bilirubin 0.8 (0.2-1.3) mg/dL AST 34 (14-36) IU/L ALT 18 (<35) IU/L Alkaline Phosphatase 113 (38-126) U/L Troponin I 0.018 (0.01-0.034) ng/mL Total Protein 7.5 (6.3-8.2) g/dL Albumin 4.2 (3.5-5.0) g/dL Globulin 3.3 (1.7-4.1) g/dL Albumin/Globulin Ratio 1.3 (1.0-2.8) Lipase 110 (23-300) U/L Procalcitonin (<0.5) ng/mL Serum , Qual (Negative) Ethyl Alcohol < 10 ( - 10) mg/dL 09/30/19 09/30/19 Range/Units 14:05 14:30 WBC (4.5-11.0) X10^3/uL RBC (4.0-5.2) X10^6/uL Hgb (12.0-16.0) g/dL Hct (36-46) % MCV (80-100) fL MCH (26-34) PG MCHC (30-36) % RDW (11.6-14.8) % Plt Count (150-400) X10^3/uL Neut % (Auto) (50-75) % Lymph % (Auto) (25-40) % [place] % (Auto) (3-14) % Eos % (Auto) (2-4) % Baso % (Auto) (0-2) % Neut # (Auto) (0800-1986) /uL Lymph # (Auto) (1170-2935) /uL [place] # (Auto) (0-900) /uL Eos # (Auto) (0-450) /uL Baso # (Auto) (0-100) /uL ABG pH 7.39 (7.35-7.45) ABG pCO2 32.8 L (35-45) mmHg ABG pO2 88 (80-100) mmHg ABG HCO3 20 L (22-26) mmol/L ABG Total CO2 21 (21-31) mmol/L ABG O2 Saturation 97 (95-100) % ABG Base Excess -5.0 L (-2-2) mmol/L FiO2 0.36 Sodium (137-145) mmol/L Potassium (3.4-5.1) mmol/L Chloride (98-107) mmol/L Carbon Dioxide (22-32) mmol/L BUN (7-17) mg/dL Creatinine (0.52-1.04) mg/dL Estimated GFR (>60) mL/min BUN/Creatinine Ratio (6-22) Glucose (70-100) mg/dL Calcium (8.4-10.2) mg/dL Total Bilirubin (0.2-1.3) mg/dL AST (14-36) IU/L ALT (<35) IU/L Alkaline Phosphatase (38-126) U/L Troponin I (0.01-0.034) ng/mL Total Protein (6.3-8.2) g/dL Albumin (3.5-5.0) g/dL Globulin (1.7-4.1) g/dL Albumin/Globulin Ratio (1.0-2.8) Lipase (23-300) U/L Procalcitonin 1.01 H (<0.5) ng/mL Serum , Qual Negative (Negative) Ethyl Alcohol ( - 10) mg/dL Point of Care Testing Glucose POC 123 Point of care testing: Point of Care Testing Glucose POC 123 Imaging Data Chest x-ray: Radiologist's impression: [address] [address] XRay Report Signed Patient: Maria Teresa Villalobos [facility]#: [id number] : 1970Acct:[id number] Age/Sex: 49 / FDate of Service: 09/30/19 Loc: ED Accession Number: [id number] Procedure: XR chest 1V Ordering Provider: Satya Wright D.O. PROCEDURE: XR CHEST 1V INDICATIONS: POSSIBLE PNUEMONIA TECHNIQUE: One view of the chest was acquired. COMPARISON: [facility], CR, XR CHEST 2V, 03/23/2019, 13:56. FINDINGS: Surgical changes and devices: None. Lungs and pleura: Lungs are clear. No pleural effusions or pneumothorax. Mediastinum: Mediastinal contours appear normal. Heart size is normal. Bones and chest wall: No suspicious bony lesions. Overlying soft tissues appear unremarkable. IMPRESSION: Stable chest. No acute cardiopulmonary process is evident. Dictated by: Reymundo Terrazas M.D. on 09/30/2019 at 13:51 Approved by: Reymundo Terrazas M.D. on 09/30/2019 at 13:54 ECG Data Attestation: I personally reviewed and interpreted this ECG as follows: Prior ECG tracings: not available for review Interpretation: Sinus tachycardia Ventricular rate of 102 Left axis deviation Normal QRS Normal QTC No ST T wave changes MDM Narrative Medical decision making narrative: Patient's symptoms and exam today are not consistent with a seizure. Not consistent with a CVA. Patient states that she feels normal now that she is in the emergency department. Her labs are relatively unremarkable except for a leukocytosis and an elevation in her pro calcitonin. Her chest x-ray shows no definitive pneumonia however she has symptoms consistent with this. Has had a productive cough, subjective fevers, congestion, I feel that this is not unreasonable to treat her for a atypical pneumonia given that 10 days worth of the symptoms. Will send home with azithromycin for this. She did have a CO level of 10-14. I did check the patient's who was in the emergency department in his CO level was undetectable. Patient's level was consistent with someone who was a smoker however she denies smoking. Does not appear to be an environmental thing. No one else at the dentist office was feeling any symptoms. states that no one else at home is having any symptoms. Patient's ABG is relatively unremarkable. I informed her that she should talk with her primary doctor about referrals to have pulmonary function test versus pulmonology. Will discharge home. Patient was given return precautions. She expressed understanding and agreement plan. Discharge Plan Departure Patient Disposition: Home Clinical Impression: Syncope Qualifiers: Syncope type: unspecified Qualified Code(s): R55 - Syncope and collapse Instructions: DI for Syncope in Adults (Fainting) Activity Restrictions/Additional Instructions: Recommend that you continue all of your medications as directed. Increase your fluid intake. Talk with your primary provider about referral to have pulmonary function tests versus a pulmonology consultation given your elevated carbon monoxide level. Return to the emergency department for any new or worsening symptoms Prescriptions: No Action gabapentin [Neurontin] 600 mg tablet 1,200 mg PO TID Qty: 540 RF: 0 metoprolol succinate [Toprol XL] 25 mg tablet extended release 24 hr 25 mg PO BID Qty: 180 RF: 3 oxycodone-acetaminophen [Percocet] 10-325 mg tablet 1 - 2 tab PO Q6HP PRN (Reason: pain) Qty: 200 RF: 0 glimepiride 4 mg tablet 8 mg PO QAM Qty: 180 RF: 3 Disabled Parking Permit 1 stefnai miscellaneous DIRECTED RF: 0 [place] 1 pkg miscellaneous BID RF: 0 Trulicity 1.5 mg/0.5 mL pen injector 0.5 ml subcut QWEEK RF: 0 fluoxetine 20 mg capsule 60 mg PO DAILY RF: 0 fenofibrate 160 mg tablet 160 mg PO DAILY RF: 0 cetirizine 10 mg Tablet 10 mg PO DAILY PRN (Reason: Allergy Symptoms) RF: 0 lidocaine-prilocaine 2.5-2.5 % cream 1 applic topical DIRECTED RF: 0 albuterol sulfate 2.5 MG/3 ML solution for nebulization 3 ml INH Q6HP PRN (Reason: Shortness Of Breath) RF: 0 temazepam 30 mg capsule 30 mg PO BEDTIME RF: 0 nortriptyline 50 mg capsule 50 mg PO BEDTIME RF: 0 metoclopramide HCl 10 mg tablet 10 mg PO ACHS PRN (Reason: Nausea) RF: 0 Novolog Flexpen U-100 Insulin 100 unit/mL insulin pen 1 dose SUBCUT BID RF: 0 Levemir U-100 Insulin 100 unit/mL solution 36 unit SUBCUT SEE INSTRUCTIONS RF: 0 atorvastatin 80 mg tablet 80 mg PO DAILY RF: 0 Jardiance 25 mg tablet 25 mg PO DAILY RF: 0 lisinopril 20 mg tablet 20 mg PO DAILY RF: 0 rosuvastatin 20 mg tablet 20 mg PO DAILY RF: 0 omeprazole 20 mg capsule,delayed release(DR/EC) 20 mg PO BID RF: 0
[2019-09-30] MEDS: SODIUM CHLORIDE 0.9% 1,000 ML 1000 ML IV (14:17)
[2019-09-30 14:18] LABS: Add Manual Diff / Slide Review NO; Basophils Absolute Auto 100 /uL (0-100); Basophils Percent Auto 0.7 % (0-2); Eosinophils Absolute Auto 0 /uL (0-450); Eosinophils Percent Auto 0.1 % (2-4); Hematocrit 36.7 % (36-46); Hemoglobin 12.4 g/dL (12.0-16.0); Lymphocytes Absolute Auto 4300 /uL (1100-4500); Lymphocytes Percent Auto 34.1 % (25-40); Mean Corpuscular HGB Conc 33.9 % (30-36); Mean Corpuscular Hemoglobin 27.8 PG (26-34); Mean Corpuscular Volume 82.1 fL (80-100); Monocytes Absolute Auto 1400 /uL (0-900); Monocytes Percent Auto 11.3 % (3-14); Neutrophils Absolute Auto 6800 /uL (1500-7000); Neutrophils Percent Auto 53.8 % (50-75); Platelet Count 268 X10^3/uL (150-400); Red Blood Cell Count 4.47 X10^6/uL (4.0-5.2); Red Cell Distribution Width 16.2 % (11.6-14.8); White Blood Cell Count 12.6 X10^3/uL (4.5-11.0)
--- NOTE | 2019-09-30 14:23 | DI.RAD.S_ITS ---
PROCEDURE: XR CHEST 1V INDICATIONS: POSSIBLE PNUEMONIA TECHNIQUE: One view of the chest was acquired. COMPARISON: [facility], CR, XR CHEST 2V, 03/23/2019, 13:56. FINDINGS: Surgical changes and devices: None. Lungs and pleura: Lungs are clear. No pleural effusions or pneumothorax. Mediastinum: Mediastinal contours appear normal. Heart size is normal. Bones and chest wall: No suspicious bony lesions. Overlying soft tissues appear unremarkable. IMPRESSION: Stable chest. No acute cardiopulmonary process is evident. Dictated by: Reymundo Terrazas M.D. on 09/30/2019 at 13:51 Approved by: Reymundo Terrzaas M.D. on 09/30/2019 at 13:54
[2019-09-30 14:31] LABS: Ethanol (ETOH) < 10 mg/dL; Lipase 110 U/L (23-300)
[2019-09-30 14:32] VITALS: BP 137/98; PULSE 105; RESP 16; O2SAT 99
[2019-09-30 14:37] LABS: Alanine Aminotransferase 18 IU/L (<35); Albumin 4.2 g/dL (3.5-5.0); Albumin Globulin Ratio 1.3 (1.0-2.8); Alkaline Phosphatase 113 U/L (38-126); Aspartate Aminotransferase 34 IU/L (14-36); BUN Creatinine Ratio 35.7 (6-22); Bilirubin Total 0.8 mg/dL (0.2-1.3); Blood Urea Nitrogen 25 mg/dL (7-17); Calcium 9.1 mg/dL (8.4-10.2); Carbon Dioxide 24 mmol/L (22-32); Chloride 87 mmol/L (98-107); Estimated Glomerular Filt Rate > 60.0 mL/min (>60); Globulin 3.3 g/dL (1.7-4.1); Glucose 116 mg/dL (70-100); Potassium 3.6 mmol/L (3.4-5.1); Sodium 129 mmol/L (137-145); Total Protein 7.5 g/dL (6.3-8.2)
[2019-09-30 14:38] LABS: HEMOLYSIS 82 (0-50)
[2019-09-30 14:39] VITALS: BP 137/98; PULSE 96; RESP 14; O2SAT 100
[2019-09-30 14:39] LABS: Pregnancy Test Serum,Qual Negative (Negative)
--- NOTE | 2019-09-30 14:39 | PC.NURSE ---
per dr marin pt placed on nasal cannula at 4 liters
[2019-09-30 14:42] LABS: Troponin I 0.018 ng/mL (0.01-0.034)
[2019-09-30 14:51] LABS: Procalcitonin 1.01 ng/mL (<0.5)
[2019-09-30 14:57] LABS: HCO3 ABG 20 mmol/L (22-26); PCO2 ABG 32.8 mmHg (35-45); PO2 ABG 88 mmHg (80-100); pH ABG 7.39 (7.35-7.45)
--- NOTE | 2019-09-30 14:57 | PC.NURSE ---
dr marin checked carbon monoxide level on pt which returned a value of 12
[2019-09-30 14:58] LABS: Oxygen Saturation ABG 97 % (95-100); TCO2 ABG 21 mmol/L (21-31)
[2019-09-30 14:59] LABS: Fractionated Inspired Oxygen 0.36
--- NOTE | 2019-09-30 15:03 | PC.NURSE ---
dr marin rechecked pt's CO level which remains 12
[2019-09-30 15:12] VITALS: BP 132/75; PULSE 94; RESP 14; O2SAT 95
--- NOTE | 2019-09-30 15:32 | PC.NURSE ---
Pt ambulated with steady gait,denies dizziness or SOB.
== END 2019-09-30 15:33 | disposition home or self-care (01) ==
PROVIDERS: Emergency Provider Emergency Medicine
DX: R55 Syncope and collapse (principal); R00.0 Tachycardia, unspecified; R79.89 Other specified abnormal findings of blood chemistry; I10 Essential (primary) hypertension; E78.5 Hyperlipidemia, unspecified; E11.9 Type 2 diabetes mellitus without complications; F41.9 Anxiety disorder, unspecified
CPT/HCPCS: 36415; 36600; 71045; 80053; 80320; 82805; 82962; 83690; 84145; 84484; 84703; 85025; 93005; 96360; 99283; 99285

== ENCOUNTER 2020-03-12 11:03 | Inpatient (IN) | payer MEDICARE, MEDICAID, SELFPAY ==
[2020-03-12] VITALS (19 sets, daily range): BP systolic 133–220; BP diastolic 70–107; PULSE 77–140; RESP 14–35; TEMP 36.6–37.9; O2SAT 95–99; BMI 43.9; BMI 29.4
--- NOTE | 2020-03-12 11:26 | ED.NAVMDI ---
HPI - Nausea/Vomiting/Diarrhea <Emy Joycemer, CLIENT DEVELOPMENT CONSULTANT-BC - Last Filed: 03/12/20 18:01> General Chief complaint: Nausea/Vomiting/Diarrhea Stated complaint: possible dehydration 2 days puking diabetic high ? Time Seen by Provider: 03/12/20 11:11 Source: patient and family Mode of arrival: Ambulatory Limitations: no limitations History of Present Illness HPI Narrative: The patient is a 49-year-old female non smoker noncompliant diabetic who presents with a chief complaint of possible dehydration with her . Her states that she has been dry heaving for the past several days, not eating or drinking. He states that she is a diabetic who ?does not often take her blood sugar and that he took at this morning and was almost 500. Additionally she has not been using her insulin over the past several days could she ?does not like to take shots.He states that his became more ?out of it and acting as though her blood sugar is high. He states ?she gets like this when it is high.Thus he called her PCP from [facility] who had her go to the emergency department. Upon interview the patient denies any pain. She states she feels okay. She is not clear regarding why she does not check her blood sugars or take her insulin. Related Data Home Medications Medication Instructions Recorded Confirmed Disabled Parking Permit 1 stefani MISCELLANEOUS DIRECTED 08/19/18 03/23/19 [place] 1 pkg MISCELLANEOUS BID 08/19/18 03/23/19 Levemir U-100 Insulin 36 unit SUBCUT SEE INSTRUCTIONS 03/23/19 03/23/19 Novolog Flexpen U-100 Insulin 1 dose SUBCUT BID 03/23/19 03/23/19 albuterol sulfate 3 ml INH Q6HP PRN 03/23/19 03/23/19 cetirizine 10 mg PO DAILY PRN 03/23/19 03/23/19 dulaglutide [Trulicity] 0.5 ml SUBCUT QWEEK 03/23/19 03/23/19 fenofibrate 160 mg PO DAILY 03/23/19 03/23/19 fluoxetine 60 mg PO DAILY 03/23/19 09/30/19 lidocaine-prilocaine 1 applic TOPICAL DIRECTED 03/23/19 03/23/19 metoclopramide HCl 10 mg PO ACHS PRN 03/23/19 09/30/19 nortriptyline 50 mg PO BEDTIME 03/23/19 03/23/19 temazepam 30 mg PO BEDTIME 03/23/19 03/23/19 atorvastatin 80 mg PO DAILY 08/07/19 08/07/19 empagliflozin [Jardiance] 25 mg PO DAILY 08/07/19 09/30/19 lisinopril 20 mg PO DAILY 08/07/19 09/30/19 omeprazole 20 mg PO BID 08/07/19 09/30/19 rosuvastatin 20 mg PO DAILY 08/07/19 09/30/19 Previous Rx's Medication Instructions Recorded gabapentin 600 mg tablet 1,200 mg PO TID #540 tab 08/15/18 metoprolol succinate 25 mg 25 mg PO BID #180 tab 10/08/18 tablet,extended release 24 hr oxycodone-acetaminophen 10 mg-325 1 - 2 tab PO Q6HP PRN #200 tab 11/21/18 mg tablet azithromycin See Rx Instructions .ROUTE 09/30/19 .COMPLEX #6 tab glimepiride 4 mg tablet 8 mg PO QAM #180 tab 03/07/20 Allergies Allergy/AdvReac Type Severity Reaction Status Date / Time Sulfa (Sulfonamide Allergy Severe hives Verified 03/12/20 11:25 Antibiotics) [SULFA (SULFONAMIDE ANTIBIOTICS)] Review of Systems <NORMA Barton - Last Filed: 03/12/20 18:01> Review of Systems Narrative: GENERAL: See HPI HEENT: Denies sinus pain, ear pain, sore throat, difficulty swallowing, dizziness. RESPIRATORY: Denies dyspnea, cough, wheezing, hemoptysis, sputum. CARDIOVASCULAR: Denies chest pain, palpitations, orthopnea, edema, GASTROINTESTINAL: See HPI : Denies dysuria, frequency, incontinence, hematuria, urinary retention. MUSCULOSKELETAL: denies weakness, joint pain, or bony pain SKIN: Denies rash, skin lesions, or other NEUROLOGIC: Denies weakness, headache, numbness, change in speech, confusion, seizures, incoordination. PSYCHIATRIC: No concerning psychosocial issues. 12 point review of systems is negative except for those stated above Patient History <NORMA Barton - Last Filed: 03/12/20 18:01> Medical History Anxiety (Acute) Diabetes (Acute) Hyperlipidemia (Acute) Hypertension (Acute) Social History household members: spouse Smoking Status: Never smoker alcohol intake: never substance use type: does not use Smoking Status: Never smoker alcohol intake frequency: holidays/special occasions only Substance Use Type: does not use Exam <WINNIE Barton-BC - Last Filed: 03/12/20 18:01> Narrative Exam Narrative: GENERAL: This is a well-nourished, well-developed patient, in no apparent distress HEAD: Atraumatic. Normocephalic. No temporal or scalp tenderness. EYES: Pupils equal round and reactive. Extraocular motions intact. No scleral icterus. No injection or drainage. ENT: Nose without bleeding, purulent drainage or septal hematoma. Throat without erythema, tonsillar hypertrophy or exudate. Uvula midline. Airway patent. Dry mucous membranes. NECK: Trachea midline. No JVD or lymphadenopathy. Supple, nontender, no meningeal signs. CARDIOVASCULAR: Tachycardic rate and regular rhythm RESPIRATORY: Decreased bilaterally to auscultation. Breath sounds equal bilaterally. No wheezes, rales, or rhonchi. GASTROINTESTINAL: Abdomen soft, non-tender, nondistended. No hepato-splenomegaly, or palpable masses. No guarding. Active bowel sounds all 4 quadrants EXTREMITIES: No clubbing, cyanosis, or edema. No joint tenderness, effusion, or edema noted. BACK: Nontender without deformity or crepitance. No flank tenderness. NEURO: Alert, oriented to name, oriented to place oriented to . Patient states it is 2015. Clear speech. Follows commands bilateral upper and lower extremities. Slow to respond. SKIN: No rash or erythema on visible skin Initial Vital Signs Initial Vital Signs: Vital Signs Temperature 97.9 F 03/12/20 11:10 Pulse Rate 95 H 03/12/20 11:10 Respiratory Rate 35 H 03/12/20 11:10 Blood Pressure 188/107 H 03/12/20 11:10 Pulse Oximetry 96 03/12/20 11:10 <Grady Rubalcava MD - Last Filed: 03/12/20 18:01> Initial Vital Signs Initial Vital Signs: Vital Signs Temperature 97.9 F 03/12/20 11:10 Pulse Rate 95 H 03/12/20 11:10 Respiratory Rate 35 H 03/12/20 11:10 Blood Pressure 188/107 H 03/12/20 11:10 Pulse Oximetry 96 03/12/20 11:10 Course <Emy DasMATYP-BC - Last Filed: 03/12/20 18:01> Orders Ordered: ED Orders 03/12/20 11:17 Amylase Stat Complete Blood Count AUTO DIFF Stat Comprehensive Metabolic Panel Stat D Dimer Stat Ketones (Beta-Hydroxybutyrate) Stat Lactate (Lactic Acid) Stat Lipase Stat NT-proBNP (BNP-Adult 18+) Stat Partial Thromboplastin Time Stat Procalcitonin Stat Prothrombin Time INR Stat Troponin & CK Cardiac Panel Stat 03/12/20 11:22 EKG-12 Lead Stat 03/12/20 11:27 Venous Blood Gas Stat 03/12/20 11:29 XR abdomen 1V Stat XR chest 1V Stat 03/12/20 12:07 CT head/brain wo con Stat 03/12/20 13:37 Test Urine Stat Urinalysis and Microscopic Stat Urine Drug Screen, Rapid Stat 03/12/20 14:00 Venous Blood Gas Stat 03/12/20 14:05 Comprehensive Metabolic Panel Stat Troponin & CK Cardiac Panel Stat Atorvastatin Calcium (Lipitor) 80 mg PO BEDTIME ADRIANA Enoxaparin Sodium (Lovenox) 40 mg SUBCUT DAILY ADRIANA Fenofibrate (Triglide) 160 mg PO DAILY ADRIANA Fluoxetine HCl (Prozac) 60 mg PO DAILY ADRIANA Gabapentin (Neurontin) 1,200 mg PO TID ADRIANA INSULIN DRIP PREMIX (Myxredlin Drip Premix) 100 unit in 100 mls @ 6 mls/hr IV TITRATE ADRIANA; Protocol Last Admin: 03/12/20 14:58 Dose: 6 units/hr, 6 mls/hr Documented by: LUDIN Cosigned by: KBROTEM Sodium Chloride (Normal Saline 0.9%) 1,000 mls @ 100 mls/hr IV CONT ADRIANA Last Admin: 03/12/20 17:27 Dose: 100 mls/hr Documented by: JOSTIN Heparin Sodium/Dextrose (Heparin Drip) 25,000 unit in 500 mls @ 17.853 mls/hr IV CONT ADRIANA; Protocol Last Admin: 03/12/20 15:49 Dose: 12 units/kg/hr, 17.853 mls/hr Documented by: LUDIN Potassium Chloride 40 meq/ (Sodium Chloride) 520 mls @ 130 mls/hr IV NOW ONE Stop: 03/12/20 21:04 Last Admin: 03/12/20 17:27 Dose: 130 mls/hr Documented by: JOSTIN Cosigned by: ALEK Labetalol HCl (Trandate) 10 mg IV Q4HR PRN PRN Reason: Hypertensive Emergency Lisinopril (Zestril) 20 mg PO DAILY ADRIANA Metoclopramide HCl (Reglan) 10 mg PO ACHS PRN PRN Reason: Nausea Metoprolol Succinate (Toprol Xl) 25 mg PO BID ADRIANA Naloxone HCl (Narcan) 0.2 mg IV Q2MIN PRN PRN Reason: Opiate Reversal Nortriptyline HCl (Pamelor) 50 mg PO BEDTIME ADRIANA Discontinued Medications Aspirin (Aspirin Chew) 324 mg PO NOW ONE Stop: 03/12/20 12:58 Last Admin: 03/12/20 13:07 Dose: 324 mg Documented by: LUDIN Heparin Sodium (Porcine) (Heparin) 5,000 unit IV NOW ONE Stop: 03/12/20 15:02 Last Admin: 03/12/20 15:24 Dose: 5,000 unit Documented by: LUDIN Sodium Chloride (Normal Saline 0.9%) 1,000 mls @ 1,000 mls/hr IV BOLUS ONE Stop: 03/12/20 12:21 Last Infusion: 03/12/20 13:16 Dose: 0 mls/hr Documented by: Admin: 03/12/20 11:40 Dose: 1,000 mls/hr Documented by: LUDIN Sodium Chloride (Normal Saline 0.9%) 500 mls @ 1,000 mls/hr IV BOLUS ONE Stop: 03/12/20 11:54 Last Infusion: 03/12/20 12:19 Dose: 0 mls/hr Documented by: Admin: 03/12/20 11:40 Dose: 1,000 mls/hr Documented by: LUDIN Sodium Chloride (Normal Saline 0.9%) 1,000 mls @ 1,000 mls/hr IV BOLUS ONE Stop: 03/12/20 13:06 Last Infusion: 03/12/20 14:00 Dose: 0 mls/hr Documented by: Admin: 03/12/20 12:22 Dose: 1,000 mls/hr Documented by: LUDIN Heparin Sodium/Dextrose (Heparin Drip) 25,000 unit in 500 mls @ 26.127 mls/hr IV CONT ADRIANA; Protocol Last Admin: 03/12/20 16:13 Dose: Not Given Documented by: LUDIN Metoprolol Tartrate (Lopressor) 100 mg PO NOW ONE Stop: 03/12/20 17:20 Last Admin: 03/12/20 17:31 Dose: 100 mg Documented by: JOSTIN Ondansetron HCl (Zofran) 4 mg IV NOW ONE Stop: 03/12/20 11:23 Last Admin: 03/12/20 11:39 Dose: 4 mg Documented by: LUDIN Consultations Consultation #1: Spoke with Dr Rubalcava regarding patient's labs, blood gas, glucose 607 CO2 of 9. Discussed optimal plan for patient including 3 L of IV fluids, re-evaluating labs, plan to admit. Per Dr. Rubalcava will hold off on insulin drip at this point time, we will hold off on giving electrolytes pending repeat labs. Patient's gap is 27 when corrected for albumin. Time: 11:56 Consultation #2: Patient's trop resulted at 0.274. No acute changes on EKG. Patient denies any chest pain or shortness of breath. Remains tachycardic at 130. Sopke with Dr Rubalcava likely could be related to increased renal function. Will order aspirin at this point time, recheck troponin with repeat labs after 3rd L IVF. Repeat CBC CMP, VBG ordered for when all fluids were done. The patient's BNP is noted to be elevated, though she has no edema, does not have any wet lung sounds, and is oxygenating well. Dr Rubalcava in to evaluate the patient. Time: 12:50 Consultation #3: After getting back 2nd round of labs patient remains in DKA with blood sugars in the 400s and a gap of 23 when corrected for albumin. Heparin drip started as per Dr. Rubalcava's recommendations. Her repeat troponin has decreased slightly, though was still positive. Thus I spoke with from [facility], who recommends that the patient be placed on a heparin drip at this point time for 24-48 hours. Given that the patient does not have any ST elevation or depression, has no chest pain it is reassuring. He believes that elevated troponin is likely related to DKA and initial renal injury. He discussed that if the patient's heart rate did not decrease with DKA treatment, she could be placed on metoprolol 25 mg p.o. Q 6 to q.8. The patient can have an echocardiogram, and eventually a nuc med stress. However she would not receive any intervention until her DKA is corrected. Thus stress test would not be done until middle of next week regardless. He encourage is admitting the patient at this facility at this point in time as she would not receive a catheter or any intervention at this point. Time: 14:30 Vital Signs Vital signs: Vital Signs - 8 hr 03/12/20 11:10 03/12/20 12:15 03/12/20 13:17 Temperature 97.9 F Pulse Rate 95 H 133 H 130 H Respiratory Rate 35 H 17 18 Blood Pressure 188/107 H Blood Pressure [Right Arm] 180/90 H 197/103 H Pulse Oximetry 96 96 99 03/12/20 14:45 03/12/20 15:10 03/12/20 15:30 Temperature Pulse Rate 140 H 128 H 130 H Respiratory Rate 20 25 H 22 Blood Pressure Blood Pressure [Right Arm] 194/101 H 182/88 H 167/86 H Pulse Oximetry 95 97 97 <Grady Rubalcava MD - Last Filed: 03/12/20 18:01> Orders Ordered: ED Orders 03/12/20 11:17 Amylase Stat Complete Blood Count AUTO DIFF Stat Comprehensive Metabolic Panel Stat D Dimer Stat Ketones (Beta-Hydroxybutyrate) Stat Lactate (Lactic Acid) Stat Lipase Stat NT-proBNP (BNP-Adult 18+) Stat Partial Thromboplastin Time Stat Procalcitonin Stat Prothrombin Time INR Stat Troponin & CK Cardiac Panel Stat 03/12/20 11:22 EKG-12 Lead Stat 03/12/20 11:27 Venous Blood Gas Stat 03/12/20 11:29 XR abdomen 1V Stat XR chest 1V Stat 03/12/20 12:07 CT head/brain wo con Stat 03/12/20 13:37 Test Urine Stat Urinalysis and Microscopic Stat Urine Drug Screen, Rapid Stat 03/12/20 14:00 Venous Blood Gas Stat 03/12/20 14:05 Comprehensive Metabolic Panel Stat Troponin & CK Cardiac Panel Stat Atorvastatin Calcium (Lipitor) 80 mg PO BEDTIME [facility] Enoxaparin Sodium (Lovenox) 40 mg SUBCUT DAILY [facility] Fenofibrate (Triglide) 160 mg PO DAILY [facility] Fluoxetine HCl (Prozac) 60 mg PO DAILY [facility] Gabapentin (Neurontin) 1,200 mg PO TID [facility] INSULIN DRIP PREMIX (Myxredlin Drip Premix) 100 unit in 100 mls @ 6 mls/hr IV TITRATE ADRIANA; Protocol Last Admin: 03/12/20 14:58 Dose: 6 units/hr, 6 mls/hr Documented by: LUDIN Cosigned by: MATILDEOTEM Sodium Chloride (Normal Saline 0.9%) 1,000 mls @ 100 mls/hr IV CONT ADRIANA Last Admin: 03/12/20 17:27 Dose: 100 mls/hr Documented by: JOSTIN Heparin Sodium/Dextrose (Heparin Drip) 25,000 unit in 500 mls @ 17.853 mls/hr IV CONT ADRIANA; Protocol Last Admin: 03/12/20 15:49 Dose: 12 units/kg/hr, 17.853 mls/hr Documented by: LUDIN Potassium Chloride 40 meq/ (Sodium Chloride) 520 mls @ 130 mls/hr IV NOW ONE Stop: 03/12/20 21:04 Last Admin: 03/12/20 17:27 Dose: 130 mls/hr Documented by: JOSTIN Cosigned by: ALEK Labetalol HCl (Trandate) 10 mg IV Q4HR PRN PRN Reason: Hypertensive Emergency Lisinopril (Zestril) 20 mg PO DAILY [facility] Metoclopramide HCl (Reglan) 10 mg PO ACHS PRN PRN Reason: Nausea Metoprolol Succinate (Toprol Xl) 25 mg PO BID [facility] Naloxone HCl (Narcan) 0.2 mg IV Q2MIN PRN PRN Reason: Opiate Reversal Nortriptyline HCl (Pamelor) 50 mg PO BEDTIME [facility] Discontinued Medications Aspirin (Aspirin Chew) 324 mg PO NOW ONE Stop: 03/12/20 12:58 Last Admin: 03/12/20 13:07 Dose: 324 mg Documented by: LUDIN Heparin Sodium (Porcine) (Heparin) 5,000 unit IV NOW ONE Stop: 05/02/20 15:02 Last Admin: 03/12/20 15:24 Dose: 5,000 unit Documented by: LUDIN Sodium Chloride (Normal Saline 0.9%) 1,000 mls @ 1,000 mls/hr IV BOLUS ONE Stop: 03/12/20 12:21 Last Infusion: 03/12/20 13:16 Dose: 0 mls/hr Documented by: Admin: 03/12/20 11:40 Dose: 1,000 mls/hr Documented by: LUDIN Sodium Chloride (Normal Saline 0.9%) 500 mls @ 1,000 mls/hr IV BOLUS ONE Stop: 03/12/20 11:54 Last Infusion: 03/12/20 12:19 Dose: 0 mls/hr Documented by: Admin: 03/12/20 11:40 Dose: 1,000 mls/hr Documented by: LUDIN Sodium Chloride (Normal Saline 0.9%) 1,000 mls @ 1,000 mls/hr IV BOLUS ONE Stop: 03/12/20 13:06 Last Infusion: 03/12/20 14:00 Dose: 0 mls/hr Documented by: Admin: 03/12/20 12:22 Dose: 1,000 mls/hr Documented by: LUDIN Heparin Sodium/Dextrose (Heparin Drip) 25,000 unit in 500 mls @ 26.127 mls/hr IV CONT ADRIANA; Protocol Last Admin: 03/12/20 16:13 Dose: Not Given Documented by: LUDIN Metoprolol Tartrate (Lopressor) 100 mg PO NOW ONE Stop: 03/12/20 17:20 Last Admin: 03/12/20 17:31 Dose: 100 mg Documented by: JOSTIN Ondansetron HCl (Zofran) 4 mg IV NOW ONE Stop: 03/12/20 11:23 Last Admin: 03/12/20 11:39 Dose: 4 mg Documented by: LUDIN Vital Signs Vital signs: Vital Signs - 8 hr 03/12/20 11:10 03/12/20 12:15 03/12/20 13:17 Temperature 97.9 F Pulse Rate 95 H 133 H 130 H Respiratory Rate 35 H 17 18 Blood Pressure 188/107 H Blood Pressure [Right Arm] 180/90 H 197/103 H Pulse Oximetry 96 96 99 03/12/20 14:45 03/12/20 15:10 03/12/20 15:30 Temperature Pulse Rate 140 H 128 H 130 H Respiratory Rate 20 25 H 22 Blood Pressure Blood Pressure [Right Arm] 194/101 H 182/88 H 167/86 H Pulse Oximetry 95 97 97 MDM - Nausea/Vomiting/Diarrhea <Emy Das CLIENT DEVELOPMENT CONSULTANT-BC - Last Filed: 03/12/20 18:01> Lab Data Result diagrams: 03/12/20 11:17 03/12/20 14:05 Labs: Lab Results 03/12/20 03/12/20 03/12/20 Range/Units 11:17 11:17 11:17 WBC 13.7 H (4.5-11.0) X10^3/uL RBC 5.15 (4.0-5.2) X10^6/uL Hgb 13.0 (12.0-16.0) g/dL Hct 42.4 (36-46) % MCV 82.2 (80-100) fL MCH 25.2 L (26-34) PG MCHC 30.6 (30-36) % RDW 21.2 H (11.6-14.8) % Plt Count 463 H (150-400) X10^3/uL Neut % (Auto) 77.9 H (50-75) % Lymph % (Auto) 14.2 L (25-40) % [place] % (Auto) 7.0 (3-14) % Eos % (Auto) 0.0 L (2-4) % Baso % (Auto) 0.9 (0-2) % Neut # (Auto) 39340 H (7536-1534) /uL Lymph # (Auto) 1900 (7627-7306) /uL [place] # (Auto) 1000 H (0-900) /uL Eos # (Auto) 0 (0-450) /uL Baso # (Auto) 100 (0-100) /uL RBC Morphology See below Anisocytosis 1+ H Tear Drop Cells 1+ H PT (10.1-12.7) SECONDS INR (0.9-1.3) APTT (26.4-36.2) SECONDS D-Dimer (<230) ng/mL VBG pH (7.33-7.43) VBG pCO2 (45-50) mmHg VBG pO2 (35-45) mmHg VBG HCO3 (23-28) mmol/L VBG Total CO2 (24-29) mmol/L VBG O2 Saturation (70-75) % VBG Base Excess (0-4) mmol/L Sodium 128 L (137-145) mmol/L Potassium 3.7 (3.4-5.1) mmol/L Chloride 86 L (98-107) mmol/L Carbon Dioxide 9 L* (22-32) mmol/L BUN 40 H (7-17) mg/dL Creatinine 1.28 H (0.52-1.04) mg/dL Estimated GFR 44.7 L (>60) mL/min BUN/Creatinine Ratio 31.3 H (6-22) Glucose 607 H* (70-100) mg/dL Lactate (0.7-2.1) mmol/L Calcium 10.5 H (8.4-10.2) mg/dL Total Bilirubin 0.8 (0.2-1.3) mg/dL AST 44 H (14-36) IU/L ALT 30 (<35) IU/L Alkaline Phosphatase 154 H (38-126) U/L Total Creatine Kinase (30-135) U/L CK-MB (CK-2) (<2.37) ng/mL CK-MB (CK-2) Rel Index (1.5-5.0) % Troponin I (0.01-0.034) ng/mL NT-Pro-B Natriuret Pep (<125) pg/mL Total Protein 8.9 H (6.3-8.2) g/dL Albumin 5.2 H (3.5-5.0) g/dL Globulin 3.7 (1.7-4.1) g/dL Albumin/Globulin Ratio 1.4 (1.0-2.8) Amylase 86 (30-110) U/L Lipase 113 (23-300) U/L Procalcitonin 0.43 (<0.5) ng/mL Urine Color Urine Appearance Urine pH (4.5-8.0) Ur Specific [place] (1.000-1.035) Urine Protein (Negative) Urine Glucose (UA) (Negative) g/dL Urine Ketones (NEGATIVE) Urine Occult Blood (Negative) Urine Nitrate (Negative) Urine Bilirubin (NEGATIVE) Urine Urobilinogen (0.2) E.U./dL Ur Leukocyte Esterase (NEGATIVE) Urine RBC (0-5/HPF) Urine WBC (0-5/HPF) Amorphous Sediment Urine Bacteria (None) Ur Culture Indicated? Urine Test (Negative) U Opiates 300ng/mL cut (Negative) Ur Oxycodone Screen (Negative) Urine Methadone Screen (Negative) Ur Barbiturates Screen (Negative) U Tricyclic Antidepress (Negative) Ur Phencyclidine Scrn (Negative) Ur Amphetamines Screen (Negative) U Methamphetamines Scrn (Negative) Ur MDMA Scrn (Ecstasy) (Negative) U Benzodiazepines Scrn (Negative) Urine Cocaine Screen (Negative) U Marijuana (THC) Screen (Negative) Ketones 14.41 H (<0.27) mmol/L 03/12/20 03/12/20 03/12/20 Range/Units 11:17 11:17 11:17 WBC (4.5-11.0) X10^3/uL RBC (4.0-5.2) X10^6/uL Hgb (12.0-16.0) g/dL Hct (36-46) % MCV (80-100) fL MCH (26-34) PG MCHC (30-36) % RDW (11.6-14.8) % Plt Count (150-400) X10^3/uL Neut % (Auto) (50-75) % Lymph % (Auto) (25-40) % [place] % (Auto) (3-14) % Eos % (Auto) (2-4) % Baso % (Auto) (0-2) % Neut # (Auto) (4264-6460) /uL Lymph # (Auto) (4015-8430) /uL [place] # (Auto) (0-900) /uL Eos # (Auto) (0-450) /uL Baso # (Auto) (0-100) /uL RBC Morphology Anisocytosis Tear Drop Cells PT (10.1-12.7) SECONDS INR (0.9-1.3) APTT (26.4-36.2) SECONDS D-Dimer 296 H (<230) ng/mL VBG pH (7.33-7.43) VBG pCO2 (45-50) mmHg VBG pO2 (35-45) mmHg VBG HCO3 (23-28) mmol/L VBG Total CO2 (24-29) mmol/L VBG O2 Saturation (70-75) % VBG Base Excess (0-4) mmol/L Sodium (137-145) mmol/L Potassium (3.4-5.1) mmol/L Chloride (98-107) mmol/L Carbon Dioxide (22-32) mmol/L BUN (7-17) mg/dL Creatinine (0.52-1.04) mg/dL Estimated GFR (>60) mL/min BUN/Creatinine Ratio (6-22) Glucose (70-100) mg/dL Lactate 1.2 (0.7-2.1) mmol/L Calcium (8.4-10.2) mg/dL Total Bilirubin (0.2-1.3) mg/dL AST (14-36) IU/L ALT (<35) IU/L Alkaline Phosphatase (38-126) U/L Total Creatine Kinase 892 H (30-135) U/L CK-MB (CK-2) 6.29 H (<2.37) ng/mL CK-MB (CK-2) Rel Index 0.7 L (1.5-5.0) % Troponin I 0.274 H* (0.01-0.034) ng/mL NT-Pro-B Natriuret Pep (<125) pg/mL Total Protein (6.3-8.2) g/dL Albumin (3.5-5.0) g/dL Globulin (1.7-4.1) g/dL Albumin/Globulin Ratio (1.0-2.8) Amylase (30-110) U/L Lipase (23-300) U/L Procalcitonin (<0.5) ng/mL Urine Color Urine Appearance Urine pH (4.5-8.0) Ur Specific [place] (1.000-1.035) Urine Protein (Negative) Urine Glucose (UA) (Negative) g/dL Urine Ketones (NEGATIVE) Urine Occult Blood (Negative) Urine Nitrate (Negative) Urine Bilirubin (NEGATIVE) Urine Urobilinogen (0.2) E.U./dL Ur Leukocyte Esterase (NEGATIVE) Urine RBC (0-5/HPF) Urine WBC (0-5/HPF) Amorphous Sediment Urine Bacteria (None) Ur Culture Indicated? Urine Test (Negative) U Opiates 300ng/mL cut (Negative) Ur Oxycodone Screen (Negative) Urine Methadone Screen (Negative) Ur Barbiturates Screen (Negative) U Tricyclic Antidepress (Negative) Ur Phencyclidine Scrn (Negative) Ur Amphetamines Screen (Negative) U Methamphetamines Scrn (Negative) Ur MDMA Scrn (Ecstasy) (Negative) U Benzodiazepines Scrn (Negative) Urine Cocaine Screen (Negative) U Marijuana (THC) Screen (Negative) Ketones (<0.27) mmol/L 03/12/20 03/12/20 03/12/20 Range/Units 11:17 11:17 11:27 WBC (4.5-11.0) X10^3/uL RBC (4.0-5.2) X10^6/uL Hgb (12.0-16.0) g/dL Hct (36-46) % MCV (80-100) fL MCH (26-34) PG MCHC (30-36) % RDW (11.6-14.8) % Plt Count (150-400) X10^3/uL Neut % (Auto) (50-75) % Lymph % (Auto) (25-40) % [place] % (Auto) (3-14) % Eos % (Auto) (2-4) % Baso % (Auto) (0-2) % Neut # (Auto) (8246-3840) /uL Lymph # (Auto) (3796-4216) /uL [place] # (Auto) (0-900) /uL Eos # (Auto) (0-450) /uL Baso # (Auto) (0-100) /uL RBC Morphology Anisocytosis Tear Drop Cells PT 12.5 (10.1-12.7) SECONDS INR 1.1 (0.9-1.3) APTT 30 (26.4-36.2) SECONDS D-Dimer (<230) ng/mL VBG pH 7.31 L (7.33-7.43) VBG pCO2 23.5 L (45-50) mmHg VBG pO2 79 H (35-45) mmHg VBG HCO3 12 L (23-28) mmol/L VBG Total CO2 12 L (24-29) mmol/L VBG O2 Saturation 95 H (70-75) % VBG Base Excess -15.0 L (0-4) mmol/L Sodium (137-145) mmol/L Potassium (3.4-5.1) mmol/L Chloride (98-107) mmol/L Carbon Dioxide (22-32) mmol/L BUN (7-17) mg/dL Creatinine (0.52-1.04) mg/dL Estimated GFR (>60) mL/min BUN/Creatinine Ratio (6-22) Glucose (70-100) mg/dL Lactate (0.7-2.1) mmol/L Calcium (8.4-10.2) mg/dL Total Bilirubin (0.2-1.3) mg/dL AST (14-36) IU/L ALT (<35) IU/L Alkaline Phosphatase (38-126) U/L Total Creatine Kinase (30-135) U/L CK-MB (CK-2) (<2.37) ng/mL CK-MB (CK-2) Rel Index (1.5-5.0) % Troponin I (0.01-0.034) ng/mL NT-Pro-B Natriuret Pep 2120 H (<125) pg/mL Total Protein (6.3-8.2) g/dL Albumin (3.5-5.0) g/dL Globulin (1.7-4.1) g/dL Albumin/Globulin Ratio (1.0-2.8) Amylase (30-110) U/L Lipase (23-300) U/L Procalcitonin (<0.5) ng/mL Urine Color Urine Appearance Urine pH (4.5-8.0) Ur Specific [place] (1.000-1.035) Urine Protein (Negative) Urine Glucose (UA) (Negative) g/dL Urine Ketones (NEGATIVE) Urine Occult Blood (Negative) Urine Nitrate (Negative) Urine Bilirubin (NEGATIVE) Urine Urobilinogen (0.2) E.U./dL Ur Leukocyte Esterase (NEGATIVE) Urine RBC (0-5/HPF) Urine WBC (0-5/HPF) Amorphous Sediment Urine Bacteria (None) Ur Culture Indicated? Urine Test (Negative) U Opiates 300ng/mL cut (Negative) Ur Oxycodone Screen (Negative) Urine Methadone Screen (Negative) Ur Barbiturates Screen (Negative) U Tricyclic Antidepress (Negative) Ur Phencyclidine Scrn (Negative) Ur Amphetamines Screen (Negative) U Methamphetamines Scrn (Negative) Ur MDMA Scrn (Ecstasy) (Negative) U Benzodiazepines Scrn (Negative) Urine Cocaine Screen (Negative) U Marijuana (THC) Screen (Negative) Ketones (<0.27) mmol/L 03/12/20 03/12/20 03/12/20 Range/Units 13:37 13:37 13:37 WBC (4.5-11.0) X10^3/uL RBC (4.0-5.2) X10^6/uL Hgb (12.0-16.0) g/dL Hct (36-46) % MCV (80-100) fL MCH (26-34) PG MCHC (30-36) % RDW (11.6-14.8) % Plt Count (150-400) X10^3/uL Neut % (Auto) (50-75) % Lymph % (Auto) (25-40) % [place] % (Auto) (3-14) % Eos % (Auto) (2-4) % Baso % (Auto) (0-2) % Neut # (Auto) (2565-4958) /uL Lymph # (Auto) (6983-7778) /uL [place] # (Auto) (0-900) /uL Eos # (Auto) (0-450) /uL Baso # (Auto) (0-100) /uL RBC Morphology Anisocytosis Tear Drop Cells PT (10.1-12.7) SECONDS INR (0.9-1.3) APTT (26.4-36.2) SECONDS D-Dimer (<230) ng/mL VBG pH (7.33-7.43) VBG pCO2 (45-50) mmHg VBG pO2 (35-45) mmHg VBG HCO3 (23-28) mmol/L VBG Total CO2 (24-29) mmol/L VBG O2 Saturation (70-75) % VBG Base Excess (0-4) mmol/L Sodium (137-145) mmol/L Potassium (3.4-5.1) mmol/L Chloride (98-107) mmol/L Carbon Dioxide (22-32) mmol/L BUN (7-17) mg/dL Creatinine (0.52-1.04) mg/dL Estimated GFR (>60) mL/min BUN/Creatinine Ratio (6-22) Glucose (70-100) mg/dL Lactate (0.7-2.1) mmol/L Calcium (8.4-10.2) mg/dL Total Bilirubin (0.2-1.3) mg/dL AST (14-36) IU/L ALT (<35) IU/L Alkaline Phosphatase (38-126) U/L Total Creatine Kinase (30-135) U/L CK-MB (CK-2) (<2.37) ng/mL CK-MB (CK-2) Rel Index (1.5-5.0) % Troponin I (0.01-0.034) ng/mL NT-Pro-B Natriuret Pep (<125) pg/mL Total Protein (6.3-8.2) g/dL Albumin (3.5-5.0) g/dL Globulin (1.7-4.1) g/dL Albumin/Globulin Ratio (1.0-2.8) Amylase (30-110) U/L Lipase (23-300) U/L Procalcitonin (<0.5) ng/mL Urine Color Yellow Urine Appearance Clear Urine pH 5.0 (4.5-8.0) Ur Specific [place] 1.020 (1.000-1.035) Urine Protein 2+ H (Negative) Urine Glucose (UA) 2+ H (Negative) g/dL Urine Ketones 3+ H (NEGATIVE) Urine Occult Blood 3+ H (Negative) Urine Nitrate Negative (Negative) Urine Bilirubin Negative (NEGATIVE) Urine Urobilinogen 0.2 (0.2) E.U./dL Ur Leukocyte Esterase Negative (NEGATIVE) Urine RBC 1-5/hpf (0-5/HPF) Urine WBC None seen (0-5/HPF) Amorphous Sediment 1+ Urine Bacteria None seen (None) Ur Culture Indicated? Cult not indicated Urine Test Negative (Negative) U Opiates 300ng/mL cut Negative (Negative) Ur Oxycodone Screen Negative (Negative) Urine Methadone Screen Negative (Negative) Ur Barbiturates Screen Negative (Negative) U Tricyclic Antidepress Negative (Negative) Ur Phencyclidine Scrn Negative (Negative) Ur Amphetamines Screen Negative (Negative) U Methamphetamines Scrn Negative (Negative) Ur MDMA Scrn (Ecstasy) Negative (Negative) U Benzodiazepines Scrn Negative (Negative) Urine Cocaine Screen Negative (Negative) U Marijuana (THC) Screen Negative (Negative) Ketones (<0.27) mmol/L 03/12/20 03/12/20 Range/Units 14:00 14:05 WBC (4.5-11.0) X10^3/uL RBC (4.0-5.2) X10^6/uL Hgb (12.0-16.0) g/dL Hct (36-46) % MCV (80-100) fL MCH (26-34) PG MCHC (30-36) % RDW (11.6-14.8) % Plt Count (150-400) X10^3/uL Neut % (Auto) (50-75) % Lymph % (Auto) (25-40) % [place] % (Auto) (3-14) % Eos % (Auto) (2-4) % Baso % (Auto) (0-2) % Neut # (Auto) (5919-3671) /uL Lymph # (Auto) (1400-4401) /uL [place] # (Auto) (0-900) /uL Eos # (Auto) (0-450) /uL Baso # (Auto) (0-100) /uL RBC Morphology Anisocytosis Tear Drop Cells PT (10.1-12.7) SECONDS INR (0.9-1.3) APTT (26.4-36.2) SECONDS D-Dimer (<230) ng/mL VBG pH 7.23 L (7.33-7.43) VBG pCO2 26.8 L (45-50) mmHg VBG pO2 51 H (35-45) mmHg VBG HCO3 11 L (23-28) mmol/L VBG Total CO2 12 L (24-29) mmol/L VBG O2 Saturation 80 H (70-75) % VBG Base Excess -16.0 L (0-4) mmol/L Sodium 134 L (137-145) mmol/L Potassium 3.6 (3.4-5.1) mmol/L Chloride 101 (98-107) mmol/L Carbon Dioxide 9 L* (22-32) mmol/L BUN 32 H (7-17) mg/dL Creatinine 0.82 (0.52-1.04) mg/dL Estimated GFR > 60.0 (>60) mL/min BUN/Creatinine Ratio 39.0 H (6-22) Glucose 422 H D (70-100) mg/dL Lactate (0.7-2.1) mmol/L Calcium 8.3 L (8.4-10.2) mg/dL Total Bilirubin 0.5 (0.2-1.3) mg/dL AST 37 H (14-36) IU/L ALT 24 (<35) IU/L Alkaline Phosphatase 122 (38-126) U/L Total Creatine Kinase 807 H (30-135) U/L CK-MB (CK-2) 6.34 H (<2.37) ng/mL CK-MB (CK-2) Rel Index 0.8 L (1.5-5.0) % Troponin I 0.193 H* (0.01-0.034) ng/mL NT-Pro-B Natriuret Pep (<125) pg/mL Total Protein 7.5 (6.3-8.2) g/dL Albumin 4.3 (3.5-5.0) g/dL Globulin 3.2 (1.7-4.1) g/dL Albumin/Globulin Ratio 1.3 (1.0-2.8) Amylase (30-110) U/L Lipase (23-300) U/L Procalcitonin (<0.5) ng/mL Urine Color Urine Appearance Urine pH (4.5-8.0) Ur Specific [place] (1.000-1.035) Urine Protein (Negative) Urine Glucose (UA) (Negative) g/dL Urine Ketones (NEGATIVE) Urine Occult Blood (Negative) Urine Nitrate (Negative) Urine Bilirubin (NEGATIVE) Urine Urobilinogen (0.2) E.U./dL Ur Leukocyte Esterase (NEGATIVE) Urine RBC (0-5/HPF) Urine WBC (0-5/HPF) Amorphous Sediment Urine Bacteria (None) Ur Culture Indicated? Urine Test (Negative) U Opiates 300ng/mL cut (Negative) Ur Oxycodone Screen (Negative) Urine Methadone Screen (Negative) Ur Barbiturates Screen (Negative) U Tricyclic Antidepress (Negative) Ur Phencyclidine Scrn (Negative) Ur Amphetamines Screen (Negative) U Methamphetamines Scrn (Negative) Ur MDMA Scrn (Ecstasy) (Negative) U Benzodiazepines Scrn (Negative) Urine Cocaine Screen (Negative) U Marijuana (THC) Screen (Negative) Ketones (<0.27) mmol/L Point of Care Testing Glucose POC [address] scan - head: Radiologist's Impression: [address] [place] [id number] Scan Report Signed Patient: Maria Teresa Villalobos MMR#: [id number] : 1970Acct:[id number] Age/Sex: 49 / FDate of Service: 03/12/20 Loc: ED Accession Number: [id number] Procedure: CT head/brain wo con Ordering Provider: Emy Das-JUANITO PROCEDURE: CT HEAD/BRAIN WO CON INDICATIONS: Altered mental status. TECHNIQUE: Noncontrast 4.5 mm thick angled axial sections acquired from the foramen magnum to the vertex, with coronal and sagittal reformats. For radiation dose reduction, the following was used: automated exposure control, adjustment of mA and/or kV according to patient size. COMPARISON: [facility], CT, CT HEAD/BRAIN WO CON, 08/07/2019, 14:54. FINDINGS: Image quality: Diagnostic. CSF spaces: Basal cisterns are patent. No extra-axial fluid collections. Ventricles are normal in size and shape. Brain: No midline shift. No intracranial masses or hemorrhage. Man-white matter interface is normal. Skull and face: Calvarium and visualized facial bones are intact, without suspicious lesions. Sinuses: Visualized sinuses and mastoids are clear. IMPRESSION: Negative head CT. No acute intracranial hemorrhage. Dictated by: Reymundo Terrazas M.D. on 03/12/2020 at 11:36 Approved by: Reymundo Terrazas M.D. on 03/12/2020 at 11:37 Chest x-ray: Radiologist's Impression: [address] [place] [id number] XRay Report Signed Patient: Maria Teresa Villalobos MMR#: [id number] : 1970Acct:[id number] Age/Sex: 49 / FDate of Service: 03/12/20 Loc: ED Accession Number: [id number] Procedure: XR chest 1V Ordering Provider: Emy Das CLIENT DEVELOPMENT CONSULTANT-BC PROCEDURE: XR CHEST 1V INDICATIONS: tachy, ams TECHNIQUE: One view of the chest was acquired. COMPARISON: [facility], , XR CHEST 1V, 09/30/2019, 14:29. FINDINGS: Surgical changes and devices: None. Lungs and pleura: Prominent perihilar interstitial markings are identified. No focal consolidation is evident. No effusion or pneumothorax is identified. Mediastinum: Mediastinal contours appear normal. The heart is mildly enlarged. Bones and chest wall: No suspicious bony lesions. Overlying soft tissues appear unremarkable. IMPRESSION: Borderline cardiomegaly with prominent pulmonary vascular markings may represent mild pulmonary edema. Please correlate clinically. There is no definite pneumonia. Dictated by: Reymundo Terrazas M.D. on 03/12/2020 at 10:57 Approved by: Reymundo Terrazas M.D. on 03/12/2020 at 10:58 Abdominal x-ray: Radiologist's Impression: [address] [place] [address] XRay Report Signed Patient: Maria Teresa Villalobos [facility]#: [id number] : 1970Acct:[id number] Age/Sex: 49 / FDate of Service: 03/12/20 Loc: ED Accession Number: [id number] Procedure: XR abdomen 1V Ordering Provider: Emy Das- PROCEDURE: XR ABDOMEN 1V INDICATIONS: vomiting TECHNIQUE: One view of the abdomen acquired. COMPARISON: None. FINDINGS: Surgical changes and devices: A single surgical clip is identified overlying the pelvis. There appear to be at least moderate changes of the lumbosacral spine, not adequately characterized. Bowel: No air-filled distended small bowel loops are identified demonstrating air-fluid levels. Soft tissues: No suspicious abdominal calcifications. The liver may be enlarged. Bones: No suspicious bony lesions. IMPRESSION: No bowel obstruction. Dictated by: Reymundo Terrazas M.D. on 03/12/2020 at 10:55 Approved by: Reymundo Terrazas M.D. on 03/12/2020 at 10:56 ECG Data Attestation: I personally reviewed and interpreted this ECG as follows: Interpretation: ST 136. qrs 101. pr 125. Viewed by Dr Khadar ZARCO Narrative Medical decision making narrative: The patient is a 49-year-old female who presents with a chief complaint of nausea and vomiting was found to have altered mental status as well as diabetic ketoacidosis and elevated troponin. It is concerning that she has not been taking her insulin for days, does not check her blood sugars as well. A thorough evaluation or workup was done including 2 sets of labs, urine drug screen related to previous PCP notes that patient was taking her 's pain pills, cardiology consult etcetera. The patient was started on insulin drip after 3 L of IV fluid as well as a heparin drip given her elevated troponin as per [facility] recommendations. NSTEMI considered, so Dr Miranda consulted and heparin drip started accordingly after aspirin was given. However patient is okay to stay at this facility for Cardiology as no immediate cardiac intervention at this point time. Given patient acuity and complexity, Dr Rubalcava involved throughout patient's stay in to evaluate patient as well. The patient was coming admitted to this facility in the intensive care unit by Dr. Hurley with insulin and heparin drip running. Patient's states understanding and has no questions or concerns. <Grady Rubalcava MD - Last Filed: 03/12/20 18:01> Lab Data Labs: Lab Results 03/12/20 03/12/20 03/12/20 Range/Units 11:17 11:17 11:17 WBC 13.7 H (4.5-11.0) X10^3/uL RBC 5.15 (4.0-5.2) X10^6/uL Hgb 13.0 (12.0-16.0) g/dL Hct 42.4 (36-46) % MCV 82.2 (80-100) fL MCH 25.2 L (26-34) PG MCHC 30.6 (30-36) % RDW 21.2 H (11.6-14.8) % Plt Count 463 H (150-400) X10^3/uL Neut % (Auto) 77.9 H (50-75) % Lymph % (Auto) 14.2 L (25-40) % [place] % (Auto) 7.0 (3-14) % Eos % (Auto) 0.0 L (2-4) % Baso % (Auto) 0.9 (0-2) % Neut # (Auto) 45846 H (9799-6104) /uL Lymph # (Auto) 1900 (5188-0365) /uL [place] # (Auto) 1000 H (0-900) /uL Eos # (Auto) 0 (0-450) /uL Baso # (Auto) 100 (0-100) /uL RBC Morphology See below Anisocytosis 1+ H Tear Drop Cells 1+ H PT (10.1-12.7) SECONDS INR (0.9-1.3) APTT (26.4-36.2) SECONDS D-Dimer (<230) ng/mL VBG pH (7.33-7.43) VBG pCO2 (45-50) mmHg VBG pO2 (35-45) mmHg VBG HCO3 (23-28) mmol/L VBG Total CO2 (24-29) mmol/L VBG O2 Saturation (70-75) % VBG Base Excess (0-4) mmol/L Sodium 128 L (137-145) mmol/L Potassium 3.7 (3.4-5.1) mmol/L Chloride 86 L (98-107) mmol/L Carbon Dioxide 9 L* (22-32) mmol/L BUN 40 H (7-17) mg/dL Creatinine 1.28 H (0.52-1.04) mg/dL Estimated GFR 44.7 L (>60) mL/min BUN/Creatinine Ratio 31.3 H (6-22) Glucose 607 H* (70-100) mg/dL Lactate (0.7-2.1) mmol/L Calcium 10.5 H (8.4-10.2) mg/dL Total Bilirubin 0.8 (0.2-1.3) mg/dL AST 44 H (14-36) IU/L ALT 30 (<35) IU/L Alkaline Phosphatase 154 H (38-126) U/L Total Creatine Kinase (30-135) U/L CK-MB (CK-2) (<2.37) ng/mL CK-MB (CK-2) Rel Index (1.5-5.0) % Troponin I (0.01-0.034) ng/mL NT-Pro-B Natriuret Pep (<125) pg/mL Total Protein 8.9 H (6.3-8.2) g/dL Albumin 5.2 H (3.5-5.0) g/dL Globulin 3.7 (1.7-4.1) g/dL Albumin/Globulin Ratio 1.4 (1.0-2.8) Amylase 86 (30-110) U/L Lipase 113 (23-300) U/L Procalcitonin 0.43 (<0.5) ng/mL Urine Color Urine Appearance Urine pH (4.5-8.0) Ur Specific [place] (1.000-1.035) Urine Protein (Negative) Urine Glucose (UA) (Negative) g/dL Urine Ketones (NEGATIVE) Urine Occult Blood (Negative) Urine Nitrate (Negative) Urine Bilirubin (NEGATIVE) Urine Urobilinogen (0.2) E.U./dL Ur Leukocyte Esterase (NEGATIVE) Urine RBC (0-5/HPF) Urine WBC (0-5/HPF) Amorphous Sediment Urine Bacteria (None) Ur Culture Indicated? Urine Test (Negative) U Opiates 300ng/mL cut (Negative) Ur Oxycodone Screen (Negative) Urine Methadone Screen (Negative) Ur Barbiturates Screen (Negative) U Tricyclic Antidepress (Negative) Ur Phencyclidine Scrn (Negative) Ur Amphetamines Screen (Negative) U Methamphetamines Scrn (Negative) Ur MDMA Scrn (Ecstasy) (Negative) U Benzodiazepines Scrn (Negative) Urine Cocaine Screen (Negative) U Marijuana (THC) Screen (Negative) Ketones 14.41 H (<0.27) mmol/L 03/12/20 03/12/20 03/12/20 Range/Units 11:17 11:17 11:17 WBC (4.5-11.0) X10^3/uL RBC (4.0-5.2) X10^6/uL Hgb (12.0-16.0) g/dL Hct (36-46) % MCV (80-100) fL MCH (26-34) PG MCHC (30-36) % RDW (11.6-14.8) % Plt Count (150-400) X10^3/uL Neut % (Auto) (50-75) % Lymph % (Auto) (25-40) % [place] % (Auto) (3-14) % Eos % (Auto) (2-4) % Baso % (Auto) (0-2) % Neut # (Auto) (2254-6686) /uL Lymph # (Auto) (1855-5455) /uL [place] # (Auto) (0-900) /uL Eos # (Auto) (0-450) /uL Baso # (Auto) (0-100) /uL RBC Morphology Anisocytosis Tear Drop Cells PT (10.1-12.7) SECONDS INR (0.9-1.3) APTT (26.4-36.2) SECONDS D-Dimer 296 H (<230) ng/mL VBG pH (7.33-7.43) VBG pCO2 (45-50) mmHg VBG pO2 (35-45) mmHg VBG HCO3 (23-28) mmol/L VBG Total CO2 (24-29) mmol/L VBG O2 Saturation (70-75) % VBG Base Excess (0-4) mmol/L Sodium (137-145) mmol/L Potassium (3.4-5.1) mmol/L Chloride (98-107) mmol/L Carbon Dioxide (22-32) mmol/L BUN (7-17) mg/dL Creatinine (0.52-1.04) mg/dL Estimated GFR (>60) mL/min BUN/Creatinine Ratio (6-22) Glucose (70-100) mg/dL Lactate 1.2 (0.7-2.1) mmol/L Calcium (8.4-10.2) mg/dL Total Bilirubin (0.2-1.3) mg/dL AST (14-36) IU/L ALT (<35) IU/L Alkaline Phosphatase (38-126) U/L Total Creatine Kinase 892 H (30-135) U/L CK-MB (CK-2) 6.29 H (<2.37) ng/mL CK-MB (CK-2) Rel Index 0.7 L (1.5-5.0) % Troponin I 0.274 H* (0.01-0.034) ng/mL NT-Pro-B Natriuret Pep (<125) pg/mL Total Protein (6.3-8.2) g/dL Albumin (3.5-5.0) g/dL Globulin (1.7-4.1) g/dL Albumin/Globulin Ratio (1.0-2.8) Amylase (30-110) U/L Lipase (23-300) U/L Procalcitonin (<0.5) ng/mL Urine Color Urine Appearance Urine pH (4.5-8.0) Ur Specific [place] (1.000-1.035) Urine Protein (Negative) Urine Glucose (UA) (Negative) g/dL Urine Ketones (NEGATIVE) Urine Occult Blood (Negative) Urine Nitrate (Negative) Urine Bilirubin (NEGATIVE) Urine Urobilinogen (0.2) E.U./dL Ur Leukocyte Esterase (NEGATIVE) Urine RBC (0-5/HPF) Urine WBC (0-5/HPF) Amorphous Sediment Urine Bacteria (None) Ur Culture Indicated? Urine Test (Negative) U Opiates 300ng/mL cut (Negative) Ur Oxycodone Screen (Negative) Urine Methadone Screen (Negative) Ur Barbiturates Screen (Negative) U Tricyclic Antidepress (Negative) Ur Phencyclidine Scrn (Negative) Ur Amphetamines Screen (Negative) U Methamphetamines Scrn (Negative) Ur MDMA Scrn (Ecstasy) (Negative) U Benzodiazepines Scrn (Negative) Urine Cocaine Screen (Negative) U Marijuana (THC) Screen (Negative) Ketones (<0.27) mmol/L 03/12/20 03/12/20 03/12/20 Range/Units 11:17 11:17 11:27 WBC (4.5-11.0) X10^3/uL RBC (4.0-5.2) X10^6/uL Hgb (12.0-16.0) g/dL Hct (36-46) % MCV (80-100) fL MCH (26-34) PG MCHC (30-36) % RDW (11.6-14.8) % Plt Count (150-400) X10^3/uL Neut % (Auto) (50-75) % Lymph % (Auto) (25-40) % [place] % (Auto) (3-14) % Eos % (Auto) (2-4) % Baso % (Auto) (0-2) % Neut # (Auto) (9030-4142) /uL Lymph # (Auto) (4101-7535) /uL [place] # (Auto) (0-900) /uL Eos # (Auto) (0-450) /uL Baso # (Auto) (0-100) /uL RBC Morphology Anisocytosis Tear Drop Cells PT 12.5 (10.1-12.7) SECONDS INR 1.1 (0.9-1.3) APTT 30 (26.4-36.2) SECONDS D-Dimer (<230) ng/mL VBG pH 7.31 L (7.33-7.43) VBG pCO2 23.5 L (45-50) mmHg VBG pO2 79 H (35-45) mmHg VBG HCO3 12 L (23-28) mmol/L VBG Total CO2 12 L (24-29) mmol/L VBG O2 Saturation 95 H (70-75) % VBG Base Excess -15.0 L (0-4) mmol/L Sodium (137-145) mmol/L Potassium (3.4-5.1) mmol/L Chloride (98-107) mmol/L Carbon Dioxide (22-32) mmol/L BUN (7-17) mg/dL Creatinine (0.52-1.04) mg/dL Estimated GFR (>60) mL/min BUN/Creatinine Ratio (6-22) Glucose (70-100) mg/dL Lactate (0.7-2.1) mmol/L Calcium (8.4-10.2) mg/dL Total Bilirubin (0.2-1.3) mg/dL AST (14-36) IU/L ALT (<35) IU/L Alkaline Phosphatase (38-126) U/L Total Creatine Kinase (30-135) U/L CK-MB (CK-2) (<2.37) ng/mL CK-MB (CK-2) Rel Index (1.5-5.0) % Troponin I (0.01-0.034) ng/mL NT-Pro-B Natriuret Pep 2120 H (<125) pg/mL Total Protein (6.3-8.2) g/dL Albumin (3.5-5.0) g/dL Globulin (1.7-4.1) g/dL Albumin/Globulin Ratio (1.0-2.8) Amylase (30-110) U/L Lipase (23-300) U/L Procalcitonin (<0.5) ng/mL Urine Color Urine Appearance Urine pH (4.5-8.0) Ur Specific [place] (1.000-1.035) Urine Protein (Negative) Urine Glucose (UA) (Negative) g/dL Urine Ketones (NEGATIVE) Urine Occult Blood (Negative) Urine Nitrate (Negative) Urine Bilirubin (NEGATIVE) Urine Urobilinogen (0.2) E.U./dL Ur Leukocyte Esterase (NEGATIVE) Urine RBC (0-5/HPF) Urine WBC (0-5/HPF) Amorphous Sediment Urine Bacteria (None) Ur Culture Indicated? Urine Test (Negative) U Opiates 300ng/mL cut (Negative) Ur Oxycodone Screen (Negative) Urine Methadone Screen (Negative) Ur Barbiturates Screen (Negative) U Tricyclic Antidepress (Negative) Ur Phencyclidine Scrn (Negative) Ur Amphetamines Screen (Negative) U Methamphetamines Scrn (Negative) Ur MDMA Scrn (Ecstasy) (Negative) U Benzodiazepines Scrn (Negative) Urine Cocaine Screen (Negative) U Marijuana (THC) Screen (Negative) Ketones (<0.27) mmol/L 03/12/20 03/12/20 03/12/20 Range/Units 13:37 13:37 13:37 WBC (4.5-11.0) X10^3/uL RBC (4.0-5.2) X10^6/uL Hgb (12.0-16.0) g/dL Hct (36-46) % MCV (80-100) fL MCH (26-34) PG MCHC (30-36) % RDW (11.6-14.8) % Plt Count (150-400) X10^3/uL Neut % (Auto) (50-75) % Lymph % (Auto) (25-40) % [place] % (Auto) (3-14) % Eos % (Auto) (2-4) % Baso % (Auto) (0-2) % Neut # (Auto) (4311-7468) /uL Lymph # (Auto) (2211-2478) /uL [place] # (Auto) (0-900) /uL Eos # (Auto) (0-450) /uL Baso # (Auto) (0-100) /uL RBC Morphology Anisocytosis Tear Drop Cells PT (10.1-12.7) SECONDS INR (0.9-1.3) APTT (26.4-36.2) SECONDS D-Dimer (<230) ng/mL VBG pH (7.33-7.43) VBG pCO2 (45-50) mmHg VBG pO2 (35-45) mmHg VBG HCO3 (23-28) mmol/L VBG Total CO2 (24-29) mmol/L VBG O2 Saturation (70-75) % VBG Base Excess (0-4) mmol/L Sodium (137-145) mmol/L Potassium (3.4-5.1) mmol/L Chloride (98-107) mmol/L Carbon Dioxide (22-32) mmol/L BUN (7-17) mg/dL Creatinine (0.52-1.04) mg/dL Estimated GFR (>60) mL/min BUN/Creatinine Ratio (6-22) Glucose (70-100) mg/dL Lactate (0.7-2.1) mmol/L Calcium (8.4-10.2) mg/dL Total Bilirubin (0.2-1.3) mg/dL AST (14-36) IU/L ALT (<35) IU/L Alkaline Phosphatase (38-126) U/L Total Creatine Kinase (30-135) U/L CK-MB (CK-2) (<2.37) ng/mL CK-MB (CK-2) Rel Index (1.5-5.0) % Troponin I (0.01-0.034) ng/mL NT-Pro-B Natriuret Pep (<125) pg/mL Total Protein (6.3-8.2) g/dL Albumin (3.5-5.0) g/dL Globulin (1.7-4.1) g/dL Albumin/Globulin Ratio (1.0-2.8) Amylase (30-110) U/L Lipase (23-300) U/L Procalcitonin (<0.5) ng/mL Urine Color Yellow Urine Appearance Clear Urine pH 5.0 (4.5-8.0) Ur Specific [place] 1.020 (1.000-1.035) Urine Protein 2+ H (Negative) Urine Glucose (UA) 2+ H (Negative) g/dL Urine Ketones 3+ H (NEGATIVE) Urine Occult Blood 3+ H (Negative) Urine Nitrate Negative (Negative) Urine Bilirubin Negative (NEGATIVE) Urine Urobilinogen 0.2 (0.2) E.U./dL Ur Leukocyte Esterase Negative (NEGATIVE) Urine RBC 1-5/hpf (0-5/HPF) Urine WBC None seen (0-5/HPF) Amorphous Sediment 1+ Urine Bacteria None seen (None) Ur Culture Indicated? Cult not indicated Urine Test Negative (Negative) U Opiates 300ng/mL cut Negative (Negative) Ur Oxycodone Screen Negative (Negative) Urine Methadone Screen Negative (Negative) Ur Barbiturates Screen Negative (Negative) U Tricyclic Antidepress Negative (Negative) Ur Phencyclidine Scrn Negative (Negative) Ur Amphetamines Screen Negative (Negative) U Methamphetamines Scrn Negative (Negative) Ur MDMA Scrn (Ecstasy) Negative (Negative) U Benzodiazepines Scrn Negative (Negative) Urine Cocaine Screen Negative (Negative) U Marijuana (THC) Screen Negative (Negative) Ketones (<0.27) mmol/L 03/12/20 03/12/20 Range/Units 14:00 14:05 WBC (4.5-11.0) X10^3/uL RBC (4.0-5.2) X10^6/uL Hgb (12.0-16.0) g/dL Hct (36-46) % MCV (80-100) fL MCH (26-34) PG MCHC (30-36) % RDW (11.6-14.8) % Plt Count (150-400) X10^3/uL Neut % (Auto) (50-75) % Lymph % (Auto) (25-40) % [place] % (Auto) (3-14) % Eos % (Auto) (2-4) % Baso % (Auto) (0-2) % Neut # (Auto) (3951-8677) /uL Lymph # (Auto) (9777-8516) /uL [place] # (Auto) (0-900) /uL Eos # (Auto) (0-450) /uL Baso # (Auto) (0-100) /uL RBC Morphology Anisocytosis Tear Drop Cells PT (10.1-12.7) SECONDS INR (0.9-1.3) APTT (26.4-36.2) SECONDS D-Dimer (<230) ng/mL VBG pH 7.23 L (7.33-7.43) VBG pCO2 26.8 L (45-50) mmHg VBG pO2 51 H (35-45) mmHg VBG HCO3 11 L (23-28) mmol/L VBG Total CO2 12 L (24-29) mmol/L VBG O2 Saturation 80 H (70-75) % VBG Base Excess -16.0 L (0-4) mmol/L Sodium 134 L (137-145) mmol/L Potassium 3.6 (3.4-5.1) mmol/L Chloride 101 (98-107) mmol/L Carbon Dioxide 9 L* (22-32) mmol/L BUN 32 H (7-17) mg/dL Creatinine 0.82 (0.52-1.04) mg/dL Estimated GFR > 60.0 (>60) mL/min BUN/Creatinine Ratio 39.0 H (6-22) Glucose 422 H D (70-100) mg/dL Lactate (0.7-2.1) mmol/L Calcium 8.3 L (8.4-10.2) mg/dL Total Bilirubin 0.5 (0.2-1.3) mg/dL AST 37 H (14-36) IU/L ALT 24 (<35) IU/L Alkaline Phosphatase 122 (38-126) U/L Total Creatine Kinase 807 H (30-135) U/L CK-MB (CK-2) 6.34 H (<2.37) ng/mL CK-MB (CK-2) Rel Index 0.8 L (1.5-5.0) % Troponin I 0.193 H* (0.01-0.034) ng/mL NT-Pro-B Natriuret Pep (<125) pg/mL Total Protein 7.5 (6.3-8.2) g/dL Albumin 4.3 (3.5-5.0) g/dL Globulin 3.2 (1.7-4.1) g/dL Albumin/Globulin Ratio 1.3 (1.0-2.8) Amylase (30-110) U/L Lipase (23-300) U/L Procalcitonin (<0.5) ng/mL Urine Color Urine Appearance Urine pH (4.5-8.0) Ur Specific [place] (1.000-1.035) Urine Protein (Negative) Urine Glucose (UA) (Negative) g/dL Urine Ketones (NEGATIVE) Urine Occult Blood (Negative) Urine Nitrate (Negative) Urine Bilirubin (NEGATIVE) Urine Urobilinogen (0.2) E.U./dL Ur Leukocyte Esterase (NEGATIVE) Urine RBC (0-5/HPF) Urine WBC (0-5/HPF) Amorphous Sediment Urine Bacteria (None) Ur Culture Indicated? Urine Test (Negative) U Opiates 300ng/mL cut (Negative) Ur Oxycodone Screen (Negative) Urine Methadone Screen (Negative) Ur Barbiturates Screen (Negative) U Tricyclic Antidepress (Negative) Ur Phencyclidine Scrn (Negative) Ur Amphetamines Screen (Negative) U Methamphetamines Scrn (Negative) Ur MDMA Scrn (Ecstasy) (Negative) U Benzodiazepines Scrn (Negative) Urine Cocaine Screen (Negative) U Marijuana (THC) Screen (Negative) Ketones (<0.27) mmol/L Point of Care Testing Glucose POC 468 Discharge Plan Departure Patient Disposition: Admitted As Inpatient Clinical Impression: Elevated troponin Altered mental status Qualifiers: Altered mental status type: unspecified Qualified Code(s): R41.82 - Altered mental status, unspecified Diabetic ketoacidosis Qualifiers: Diabetes mellitus type: type 2 Diabetes mellitus complication detail: without coma Qualified Code(s): E11.10 - Type 2 diabetes mellitus with ketoacidosis without coma Discharge Date/Time: 03/12/20 16:20 Admit Date/Time: 03/12/20 15:33 Admit Provider: Samanta Hurley <Grady Rubalcava MD - Last Filed: 03/12/20 18:01> [facility] Att[facility]: I personally evaluated and examined the patient and agree with the assessment, treatment plan, and disposition of the patient as recorded by the APC.
--- NOTE | 2020-03-12 11:29 | DI.RAD.S_ITS ---
PROCEDURE: XR CHEST 1V INDICATIONS: tachy, ams TECHNIQUE: One view of the chest was acquired. COMPARISON: [facility], CR, XR CHEST 1V, 09/30/2019, 14:29. FINDINGS: Surgical changes and devices: None. Lungs and pleura: Prominent perihilar interstitial markings are identified. No focal consolidation is evident. No effusion or pneumothorax is identified. Mediastinum: Mediastinal contours appear normal. The heart is mildly enlarged. Bones and chest wall: No suspicious bony lesions. Overlying soft tissues appear unremarkable. IMPRESSION: Borderline cardiomegaly with prominent pulmonary vascular markings may represent mild pulmonary edema. Please correlate clinically. There is no definite pneumonia. Dictated by: Reymundo Terrazas M.D. on 03/12/2020 at 10:57 Approved by: Reymundo Terrazas M.D. on 03/12/2020 at 10:58
--- NOTE | 2020-03-12 11:29 | DI.RAD.S_ITS ---
PROCEDURE: XR ABDOMEN 1V INDICATIONS: vomiting TECHNIQUE: One view of the abdomen acquired. COMPARISON: None. FINDINGS: Surgical changes and devices: A single surgical clip is identified overlying the pelvis. There appear to be at least moderate changes of the lumbosacral spine, not adequately characterized. Bowel: No air-filled distended small bowel loops are identified demonstrating air-fluid levels. Soft tissues: No suspicious abdominal calcifications. The liver may be enlarged. Bones: No suspicious bony lesions. IMPRESSION: No bowel obstruction. Dictated by: Reymundo Terrazas M.D. on 03/12/2020 at 10:55 Approved by: Reymundo Terrazas M.D. on 03/12/2020 at 10:56
[2020-03-12 11:31] LABS: Add Manual Diff / Slide Review NO; Basophils Absolute Auto 100 /uL (0-100); Basophils Percent Auto 0.9 % (0-2); Eosinophils Absolute Auto 0 /uL (0-450); Hematocrit 42.4 % (36-46); Lymphocytes Absolute Auto 1900 /uL (1100-4500); Lymphocytes Percent Auto 14.2 % (25-40); Mean Corpuscular HGB Conc 30.6 % (30-36); Mean Corpuscular Hemoglobin 25.2 PG (26-34); Mean Corpuscular Volume 82.2 fL (80-100); Monocytes Absolute Auto 1000 /uL (0-900); Neutrophils Absolute Auto 10600 /uL (1500-7000); Neutrophils Percent Auto 77.9 % (50-75); Platelet Count 463 X10^3/uL (150-400); Red Blood Cell Count 5.15 X10^6/uL (4.0-5.2); Red Cell Distribution Width 21.2 % (11.6-14.8); White Blood Cell Count 13.7 X10^3/uL (4.5-11.0)
[2020-03-12] MEDS: ONDANSETRON 4 MG/2 ML INJ IV (11:39)
[2020-03-12] MEDS: SODIUM CHLORIDE 0.9% 1,000 ML 1000 ML IV ×2 (11:40→12:22)
[2020-03-12] MEDS: SODIUM CHLORIDE 0.9% 500 ML 1000 ML IV (11:40)
[2020-03-12 11:45] LABS: Alanine Aminotransferase 30 IU/L (<35); Albumin 5.2 g/dL (3.5-5.0); Albumin Globulin Ratio 1.4 (1.0-2.8); Alkaline Phosphatase 154 U/L (38-126); Amylase 86 U/L (30-110); Aspartate Aminotransferase 44 IU/L (14-36); BUN Creatinine Ratio 31.3 (6-22); Bilirubin Total 0.8 mg/dL (0.2-1.3); Blood Urea Nitrogen 40 mg/dL (7-17); Calcium 10.5 mg/dL (8.4-10.2); Chloride 86 mmol/L (98-107); Estimated Glomerular Filt Rate 44.7 mL/min (>60); Globulin 3.7 g/dL (1.7-4.1); Lactate (Lactic Acid) 1.2 mmol/L (0.7-2.1); Lipase 113 U/L (23-300); Potassium 3.7 mmol/L (3.4-5.1); Sodium 128 mmol/L (137-145); Total Protein 8.9 g/dL (6.3-8.2)
[2020-03-12 11:48] LABS: HCO3 VBG 12 mmol/L (23-28); PCO2 VBG 23.5 mmHg (45-50); PO2 VBG 79 mmHg (35-45); Total CO2 VBG 12 mmol/L (24-29); pH VBG 7.31 (7.33-7.43)
[2020-03-12 11:49] LABS: Oxygen Saturation VBG 95 % (70-75)
[2020-03-12 11:56] LABS: Carbon Dioxide 9 mmol/L (22-32); Glucose 607 mg/dL (70-100)
[2020-03-12 12:00] LABS: Procalcitonin 0.43 ng/mL (<0.5)
--- NOTE | 2020-03-12 12:07 | DI.CT.S_ITS ---
PROCEDURE: CT HEAD/BRAIN WO CON INDICATIONS: Altered mental status. TECHNIQUE: Noncontrast 4.5 mm thick angled axial sections acquired from the foramen magnum to the vertex, with coronal and sagittal reformats. For radiation dose reduction, the following was used: automated exposure control, adjustment of mA and/or kV according to patient size. COMPARISON: [facility], CT, CT HEAD/BRAIN WO CON, 08/07/2019, 14:54. FINDINGS: Image quality: Diagnostic. CSF spaces: Basal cisterns are patent. No extra-axial fluid collections. Ventricles are normal in size and shape. Brain: No midline shift. No intracranial masses or hemorrhage. Man-white matter interface is normal. Skull and face: Calvarium and visualized facial bones are intact, without suspicious lesions. Sinuses: Visualized sinuses and mastoids are clear. IMPRESSION: Negative head CT. No acute intracranial hemorrhage. Dictated by: Reymundo Terrazas M.D. on 03/12/2020 at 11:36 Approved by: Reymundo Terrazas M.D. on 03/12/2020 at 11:37
[2020-03-12 12:12] LABS: Creatine Kinase 892 U/L (30-135)
[2020-03-12 12:13] LABS: Anisocytosis 1+
[2020-03-12 12:15] LABS: HEMOLYSIS 26 (0-50); Ketones (Beta-Hydroxybutyrate) 14.41 mmol/L (<0.27); Tear Drop Cells 1+
[2020-03-12 12:28] LABS: CKMB % Relative Index 0.7 % (1.5-5.0); Creatine Kinase MB 6.29 ng/mL (<2.37)
[2020-03-12 12:43] LABS: Troponin I 0.274 ng/mL (0.01-0.034)
[2020-03-12] MEDS: ASPIRIN 81 MG CHEW TAB 324 MG PO (13:07)
[2020-03-12 13:49] LABS: Bacteria Urine None Seen; WBC Urine None Seen (0-5/HPF)
[2020-03-12 13:56] LABS: Appearance Urine UA CLEAR; Bilirubin Urine UA NEGATIVE (NEGATIVE); Color Urine UA YELLOW; Glucose Urine UA 2+ g/dL (Negative); Ketones Urine UA 3+ (NEGATIVE); Leukocyte Esterase Urine UA NEGATIVE (NEGATIVE); Nitrite Urine UA NEGATIVE (Negative); Occult Blood Urine UA 3+ (Negative); Protein Urine UA 2+ (Negative); Urobilinogen Urine UA 0.2 E.U./dL (0.2)
[2020-03-12 14:07] LABS: D Dimer 296 ng/mL (<230)
[2020-03-12] MEDS: ONDANSETRON 4 MG/2 ML INJ (14:10)
[2020-03-12 14:11] LABS: Amorphous Sediment Urine 1+; Culture Indicated Urine Cult Not Indicated; RBC Urine 1-5/HPF (0-5/HPF)
[2020-03-12 14:14] LABS: HCO3 VBG 11 mmol/L (23-28); Oxygen Saturation VBG 80 % (70-75); PCO2 VBG 26.8 mmHg (45-50); PO2 VBG 51 mmHg (35-45); Total CO2 VBG 12 mmol/L (24-29); pH VBG 7.23 (7.33-7.43)
[2020-03-12 14:21] LABS: NT-proBNP (BNP-Adult 18+) 2120 pg/mL (<125)
[2020-03-12 14:27] LABS: Pregnancy Test Urine Negative (Negative); UR Morphine/Opiate cutoff 300 Negative (Negative); Ur Creatinine Normal (Normal); Ur Specific Gravity Normal (Normal); Urine Amphetamines Negative (Negative); Urine Barbiturates Negative (Negative); Urine Benzodiazepines Negative (Negative); Urine Cocaine Negative (Negative); Urine MDMA Negative (Negative); Urine Methadone Negative (Negative); Urine Methamphetamines Negative (Negative); Urine Oxycodone Negative (Negative); Urine Phencyclidine Negative (Negative); Urine Tetrahydrocannabinol Negative (Negative); Urine Tricyclic Antidepressant Negative (Negative); Urine pH Normal (Normal)
[2020-03-12 14:30] LABS: Alanine Aminotransferase 24 IU/L (<35); Albumin 4.3 g/dL (3.5-5.0); Albumin Globulin Ratio 1.3 (1.0-2.8); Alkaline Phosphatase 122 U/L (38-126); Aspartate Aminotransferase 37 IU/L (14-36); Bilirubin Total 0.5 mg/dL (0.2-1.3); Blood Urea Nitrogen 32 mg/dL (7-17); Calcium 8.3 mg/dL (8.4-10.2); Chloride 101 mmol/L (98-107); Creatine Kinase 807 U/L (30-135); Estimated Glomerular Filt Rate > 60.0 mL/min (>60); Globulin 3.2 g/dL (1.7-4.1); Glucose 422 mg/dL (70-100); HEMOLYSIS < 15 (0-50); Potassium 3.6 mmol/L (3.4-5.1); Sodium 134 mmol/L (137-145); Total Protein 7.5 g/dL (6.3-8.2)
[2020-03-12 14:37] LABS: Carbon Dioxide 9 mmol/L (22-32)
[2020-03-12 14:45] LABS: CKMB % Relative Index 0.8 % (1.5-5.0); Creatine Kinase MB 6.34 ng/mL (<2.37); Troponin I 0.193 ng/mL (0.01-0.034)
[2020-03-12] MEDS: INSULIN DRIP PREMIX 100 UNIT/100 ML PLAST..BAG 6 UNIT IV (14:58)
[2020-03-12] MEDS: HEPARIN 5,000 UNIT/ML VIAL 5000 UNIT IV (15:24)
[2020-03-12 15:35] LABS: INR 1.1 (0.9-1.3); Prothrombin Time 12.5 SECONDS (10.1-12.7)
[2020-03-12 15:38] LABS: PTT Partial Thromboplastin Tim 30 SECONDS (26.4-36.2)
--- NOTE | 2020-03-12 15:41 | P.HP_ITS ---
History of Present Illness History of Present Illness Date Patient Seen: 03/12/20 Time Patient Seen: 16:03 Chief complaint: possible dehydration been puking 2 days Narrative: This is a 49-year-old female brought in by her due to vomiting and high blood sugars. She also has altered mental status. Initial blood sugar is greater than 600 along with elevated ketones and a low pH. Blood glucose 607 and 422. PH 7.23 and 7.31. CO2 9. Troponin 0.274 and 0.193. She has a history of type 2 diabetes and no history of type 1 diabetes or prior diabetic ketoac idosis. She appears to be experiencing a non ST elevation MT as her troponin is elevated and her EKG has no acute ST or T wave changes. She is in sinus tachycardia with right ventricular hypertrophy, evidence for an old inferior MT and evidence for an old anterolateral MT. She is unable to give any history. Her stated in the ED on the initial interview that she had been ?dry heaving for the past several days without eating or drinking?. A blood sugar this morning was almost 500. ? She has not been using her insulin for the past several days because she does not like to take shots. He said that she acts like this when her sugar is high. There are no reports of fevers, coughing, respiratory distress, chest pain, urinary symptoms. Her chest x-ray is normal along with her urinalysis, urine drug screen, head CT, KUB x-ray. The admitting ED PA spoke with Dr. Miranda who recommended heparin IV for 24-48 hours, then an echocardiogram and then possibly an ETT depending on course and results later this week. He apparently interpreted the elevated troponins as being related to the acute dehydration episode. The ketones are 14.41 and the BNP is above 2000. Patient History Medical History Anxiety (Acute) Diabetes (Acute) Hyperlipidemia (Acute) Hypertension (Acute) Family & Social History Family history unavailable: Yes (Due to altered mental status) Safety & Behavioral: Feels Safe in Current Yes Environment Been Physically Hurt or No Threatened By a Person Tobacco & Substance use: Smoking Status Never smoker alcohol intake never alcohol intake frequency holiday/special occasion Substance Use Type does not use Comment: Her backup decision maker is her , Garett Izaguirre. She also names her mother, Kalyani Robledo and her son Byron. Meds Home Medications and Allergies Home Medications Medication Instructions Recorded Confirmed Type gabapentin 600 mg tablet 1,200 mg PO TID #540 tab 08/15/18 09/30/19 Rx Disabled Parking Permit 1 stefani MISCELLANEOUS DIRECTED 08/19/18 03/23/19 History Gilbert 1 pkg MISCELLANEOUS BID 08/19/18 03/23/19 History metoprolol succinate 25 mg 25 mg PO BID #180 tab 10/08/18 03/23/19 Rx tablet,extended release 24 hr oxycodone-acetaminophen 10 mg-325 1 - 2 tab PO Q6HP PRN #200 tab 11/21/18 03/23/19 Rx mg tablet Levemir U-100 Insulin 36 unit SUBCUT SEE INSTRUCTIONS 03/23/19 03/23/19 History Novolog Flexpen U-100 Insulin 1 dose SUBCUT BID 03/23/19 03/23/19 History albuterol sulfate 3 ml INH Q6HP PRN 03/23/19 03/23/19 History cetirizine 10 mg PO DAILY PRN 03/23/19 03/23/19 History dulaglutide [Trulicity] 0.5 ml SUBCUT QWEEK 03/23/19 03/23/19 History fenofibrate 160 mg PO DAILY 03/23/19 03/23/19 History fluoxetine 60 mg PO DAILY 03/23/19 09/30/19 History lidocaine-prilocaine 1 applic TOPICAL DIRECTED 03/23/19 03/23/19 History metoclopramide HCl 10 mg PO ACHS PRN 03/23/19 09/30/19 History nortriptyline 50 mg PO BEDTIME 03/23/19 03/23/19 History temazepam 30 mg PO BEDTIME 03/23/19 03/23/19 History atorvastatin 80 mg PO DAILY 08/07/19 08/07/19 History empagliflozin [Jardiance] 25 mg PO DAILY 08/07/19 09/30/19 History lisinopril 20 mg PO DAILY 08/07/19 09/30/19 History omeprazole 20 mg PO BID 08/07/19 09/30/19 History rosuvastatin 20 mg PO DAILY 08/07/19 09/30/19 History azithromycin See Rx Instructions .ROUTE 09/30/19 Rx .COMPLEX #6 tab glimepiride 4 mg tablet 8 mg PO QAM #180 tab 03/07/20 Rx Allergies Allergy/AdvReac Type Severity Reaction Status Date / Time Sulfa (Sulfonamide Allergy Severe hives Verified 03/12/20 11:25 Antibiotics) [SULFA (SULFONAMIDE ANTIBIOTICS)] Review of Systems Review of Systems ROS: Yes unobtainable due to mental status (No reported fevers, chest pain, shortness of breath, coughing, seizures.) Exam Vital Signs (past 8 hours): - 03/12/20 11:10 03/12/20 12:15 03/12/20 13:17 Temperature 97.9 F Pulse Rate 95 H 133 H 130 H Respiratory Rate 35 H 17 18 Blood Pressure 188/107 H Blood Pressure [Right Arm] 180/90 H 197/103 H Pulse Oximetry 96 96 99 Oxygen Delivery Method Room Air Narrative Exam Narrative: She is alert and oriented only to her name. She tries to cooperate with the exam but is able to follow only about 50% of the exam instructions. She is unable to track her eyes for the extraocular muscle exam. Her mouth is moderately dry. She is quite minimal in her ability to converse and answer questions. Pupils are equally round and reactive to light. Extraocular muscles cannot be tested accurately. Sclerae are pink and nonicteric. Throat looks normal. Mucous membranes are moderately dry. No lymph nodes are felt head, neck, supraclavicular area. There is no thyromegaly. JVD is less than 6 cm and there are no carotid bruits Heart is tachycardic, regular rhythm, no murmur Lungs are clear to auscultation bilaterally. Abdomen is soft, bowel sounds positive, nontender, no organomegaly. Extremities have no ankle edema, bruising or rashes. Skin has no jaundice or rash visible. Neuro exam the patient is obtunded, unable to participate fully in the conversation and exam. There is no tremor. Motor function appears to be symmetric and decreased in all 4 extremities. Cranial nerves cannot be accurately tested but there is no obvious facial dysfunction. Objective ECG Impression: Sinus tachycardia with right ventricular hypertrophy, an old inferior MT and an old anterolateral MT. Imaging Chest x-ray: Radiologist's impression: Normal chest x-ray CT scan - head: Radiologist's impression: Normal brain CT Labs Result Diagrams: 03/12/20 11:17 03/12/20 14:05 Labs: Laboratory Results - last 24 hr 03/12/20 03/12/20 03/12/20 11:17 11:17 11:17 WBC 13.7 H RBC 5.15 Hgb 13.0 Hct 42.4 MCV 82.2 MCH 25.2 L MCHC 30.6 RDW 21.2 H Plt Count 463 H Neut % (Auto) 77.9 H Lymph % (Auto) 14.2 L [place] % (Auto) 7.0 Eos % (Auto) 0.0 L Baso % (Auto) 0.9 Neut # (Auto) 78786 H Lymph # (Auto) 1900 [place] # (Auto) 1000 H Eos # (Auto) 0 Baso # (Auto) 100 RBC Morphology See below Anisocytosis 1+ H Tear Drop Cells 1+ H PT INR APTT D-Dimer VBG pH VBG pCO2 VBG pO2 VBG HCO3 VBG Total CO2 VBG O2 Saturation VBG Base Excess Sodium 128 L Potassium 3.7 Chloride 86 L Carbon Dioxide 9 L* BUN 40 H Creatinine 1.28 H Estimated GFR 44.7 L BUN/Creatinine Ratio 31.3 H Glucose 607 H* Lactate Calcium 10.5 H Total Bilirubin 0.8 AST 44 H ALT 30 Alkaline Phosphatase 154 H Total Creatine Kinase CK-MB (CK-2) CK-MB (CK-2) Rel Index Troponin I NT-Pro-B Natriuret Pep Total Protein 8.9 H Albumin 5.2 H Globulin 3.7 Albumin/Globulin Ratio 1.4 Amylase 86 Lipase 113 Procalcitonin 0.43 Urine Color Urine Appearance Urine pH Ur Specific Hope Urine Protein Urine Glucose (UA) Urine Ketones Urine Occult Blood Urine Nitrate Urine Bilirubin Urine Urobilinogen Ur Leukocyte Esterase Urine RBC Urine WBC Amorphous Sediment Urine Bacteria Ur Culture Indicated? Urine Test U Opiates 300ng/mL cut Ur Oxycodone Screen Urine Methadone Screen Ur Barbiturates Screen U Tricyclic Antidepress Ur Phencyclidine Scrn Ur Amphetamines Screen U Methamphetamines Scrn Ur MDMA Scrn (Ecstasy) U Benzodiazepines Scrn Urine Cocaine Screen U Marijuana (THC) Screen Ketones 14.41 H 03/12/20 03/12/20 03/12/20 11:17 11:17 11:17 WBC RBC Hgb Hct MCV MCH MCHC RDW Plt Count Neut % (Auto) Lymph % (Auto) [place] % (Auto) Eos % (Auto) Baso % (Auto) Neut # (Auto) Lymph # (Auto) [place] # (Auto) Eos # (Auto) Baso # (Auto) RBC Morphology Anisocytosis Tear Drop Cells PT INR APTT D-Dimer 296 H VBG pH VBG pCO2 VBG pO2 VBG HCO3 VBG Total CO2 VBG O2 Saturation VBG Base Excess Sodium Potassium Chloride Carbon Dioxide BUN Creatinine Estimated GFR BUN/Creatinine Ratio Glucose Lactate 1.2 Calcium Total Bilirubin AST ALT Alkaline Phosphatase Total Creatine Kinase 892 H CK-MB (CK-2) 6.29 H CK-MB (CK-2) Rel Index 0.7 L Troponin I 0.274 H* NT-Pro-B Natriuret Pep Total Protein Albumin Globulin Albumin/Globulin Ratio Amylase Lipase Procalcitonin Urine Color Urine Appearance Urine pH Ur Specific Hope Urine Protein Urine Glucose (UA) Urine Ketones Urine Occult Blood Urine Nitrate Urine Bilirubin Urine Urobilinogen Ur Leukocyte Esterase Urine RBC Urine WBC Amorphous Sediment Urine Bacteria Ur Culture Indicated? Urine Test U Opiates 300ng/mL cut Ur Oxycodone Screen Urine Methadone Screen Ur Barbiturates Screen U Tricyclic Antidepress Ur Phencyclidine Scrn Ur Amphetamines Screen U Methamphetamines Scrn Ur MDMA Scrn (Ecstasy) U Benzodiazepines Scrn Urine Cocaine Screen U Marijuana (THC) Screen Ketones 03/12/20 03/12/20 03/12/20 11:17 11:17 11:27 WBC RBC Hgb Hct MCV MCH MCHC RDW Plt Count Neut % (Auto) Lymph % (Auto) [place] % (Auto) Eos % (Auto) Baso % (Auto) Neut # (Auto) Lymph # (Auto) [place] # (Auto) Eos # (Auto) Baso # (Auto) RBC Morphology Anisocytosis Tear Drop Cells PT 12.5 INR 1.1 APTT 30 D-Dimer VBG pH 7.31 L VBG pCO2 23.5 L VBG pO2 79 H VBG HCO3 12 L VBG Total CO2 12 L VBG O2 Saturation 95 H VBG Base Excess -15.0 L Sodium Potassium Chloride Carbon Dioxide BUN Creatinine Estimated GFR BUN/Creatinine Ratio Glucose Lactate Calcium Total Bilirubin AST ALT Alkaline Phosphatase Total Creatine Kinase CK-MB (CK-2) CK-MB (CK-2) Rel Index Troponin I NT-Pro-B Natriuret Pep 2120 H Total Protein Albumin Globulin Albumin/Globulin Ratio Amylase Lipase Procalcitonin Urine Color Urine Appearance Urine pH Ur Specific Hope Urine Protein Urine Glucose (UA) Urine Ketones Urine Occult Blood Urine Nitrate Urine Bilirubin Urine Urobilinogen Ur Leukocyte Esterase Urine RBC Urine WBC Amorphous Sediment Urine Bacteria Ur Culture Indicated? Urine Test U Opiates 300ng/mL cut Ur Oxycodone Screen Urine Methadone Screen Ur Barbiturates Screen U Tricyclic Antidepress Ur Phencyclidine Scrn Ur Amphetamines Screen U Methamphetamines Scrn Ur MDMA Scrn (Ecstasy) U Benzodiazepines Scrn Urine Cocaine Screen U Marijuana (THC) Screen Ketones 03/12/20 03/12/20 03/12/20 13:37 13:37 13:37 WBC RBC Hgb Hct MCV MCH MCHC RDW Plt Count Neut % (Auto) Lymph % (Auto) [place] % (Auto) Eos % (Auto) Baso % (Auto) Neut # (Auto) Lymph # (Auto) [place] # (Auto) Eos # (Auto) Baso # (Auto) RBC Morphology Anisocytosis Tear Drop Cells PT INR APTT D-Dimer VBG pH VBG pCO2 VBG pO2 VBG HCO3 VBG Total CO2 VBG O2 Saturation VBG Base Excess Sodium Potassium Chloride Carbon Dioxide BUN Creatinine Estimated GFR BUN/Creatinine Ratio Glucose Lactate Calcium Total Bilirubin AST ALT Alkaline Phosphatase Total Creatine Kinase CK-MB (CK-2) CK-MB (CK-2) Rel Index Troponin I NT-Pro-B Natriuret Pep Total Protein Albumin Globulin Albumin/Globulin Ratio Amylase Lipase Procalcitonin Urine Color Yellow Urine Appearance Clear Urine pH 5.0 Ur Specific Hope 1.020 Urine Protein 2+ H Urine Glucose (UA) 2+ H Urine Ketones 3+ H Urine Occult Blood 3+ H Urine Nitrate Negative Urine Bilirubin Negative Urine Urobilinogen 0.2 Ur Leukocyte Esterase Negative Urine RBC 1-5/hpf Urine WBC None seen Amorphous Sediment 1+ Urine Bacteria None seen Ur Culture Indicated? Cult not indicated Urine Test Negative U Opiates 300ng/mL cut Negative Ur Oxycodone Screen Negative Urine Methadone Screen Negative Ur Barbiturates Screen Negative U Tricyclic Antidepress Negative Ur Phencyclidine Scrn Negative Ur Amphetamines Screen Negative U Methamphetamines Scrn Negative Ur MDMA Scrn (Ecstasy) Negative U Benzodiazepines Scrn Negative Urine Cocaine Screen Negative U Marijuana (THC) Screen Negative Ketones 03/12/20 03/12/20 14:00 14:05 WBC RBC Hgb Hct MCV MCH MCHC RDW Plt Count Neut % (Auto) Lymph % (Auto) [place] % (Auto) Eos % (Auto) Baso % (Auto) Neut # (Auto) Lymph # (Auto) [place] # (Auto) Eos # (Auto) Baso # (Auto) RBC Morphology Anisocytosis Tear Drop Cells PT INR APTT D-Dimer VBG pH 7.23 L VBG pCO2 26.8 L VBG pO2 51 H VBG HCO3 11 L VBG Total CO2 12 L VBG O2 Saturation 80 H VBG Base Excess -16.0 L Sodium 134 L Potassium 3.6 Chloride 101 Carbon Dioxide 9 L* BUN 32 H Creatinine 0.82 Estimated GFR > 60.0 BUN/Creatinine Ratio 39.0 H Glucose 422 H D Lactate Calcium 8.3 L Total Bilirubin 0.5 AST 37 H ALT 24 Alkaline Phosphatase 122 Total Creatine Kinase 807 H CK-MB (CK-2) 6.34 H CK-MB (CK-2) Rel Index 0.8 L Troponin I 0.193 H* NT-Pro-B Natriuret Pep Total Protein 7.5 Albumin 4.3 Globulin 3.2 Albumin/Globulin Ratio 1.3 Amylase Lipase Procalcitonin Urine Color Urine Appearance Urine pH Ur Specific Hope Urine Protein Urine Glucose (UA) Urine Ketones Urine Occult Blood Urine Nitrate Urine Bilirubin Urine Urobilinogen Ur Leukocyte Esterase Urine RBC Urine WBC Amorphous Sediment Urine Bacteria Ur Culture Indicated? Urine Test U Opiates 300ng/mL cut Ur Oxycodone Screen Urine Methadone Screen Ur Barbiturates Screen U Tricyclic Antidepress Ur Phencyclidine Scrn Ur Amphetamines Screen U Methamphetamines Scrn Ur MDMA Scrn (Ecstasy) U Benzodiazepines Scrn Urine Cocaine Screen U Marijuana (THC) Screen Ketones Assessment & Plan Assessment & Plan narrative: Diabetic Ketoacidosis with Altered Mental Status, present on admission, acute - Continue IVF, Insulin Drip and electrolyte replacement/monitoring per DKA protocol in the ICU - NSTEMI and Dehydration are the most likely causes identified on admission - transition to SQ insulin regimen when Anion Gap closes and is alert enough/able to eat again Non ST elevation MT, present on admission, acute - IV Heparin and Metoprolol per cardiology recommendations - Dr. Miranda - Echocardiogram and potential ETT pending - Repeat EKG and trend Troponin Acute Dehydration, present on admission, acute -IV bolus in ED, followed by IV NS infusion in the ICU on the DKA protocol Hyponatremia, present on admission, acute -NA 128 5/2 -Caused by dehydration -correct with IVF NS per DKA protocol Hypertension, present on admission, chronic -Continue Lisinopril and Metoprolol Diabetes Mellitus II, present on admission, chronic - Elevated Ketones and low pH consistent with DKA and not Hyperosmolar hyperglycemic state - Resume SQ Lantus/Novolog insulin and avoid oral hypoglycemics when able to eat. Hyperlipidemia, present on admission, chronic - continue Atorvastatin
[2020-03-12] MEDS: HEPARIN DRIP 25,000 UNIT/500 ML IV.SOLN 17.853 UNIT IV (15:49)
--- NOTE | 2020-03-12 16:38 | DI.ECHO.S_ITS ---
[facility]---------+ [facility] +---------+ : : [address] : : : : [id number] : : : : Phone: [phone] Echocardiogram Report + + :Name: MO GAITAN Study Date: 03/13/2020 Height: 62 in : :Hospital Weight: 164 lb : : Gender: Female BSA: 1.8 m2 : :: 1970 Age: 49 yrs BP: 140/67 mmHg: :Reason For Study: NSTEMI : :Ordering Physician: Nuno : :Hospitalist Performed By: Tamika Sterling : :Referring: Samanta CHOWDHURY E : + + Interpretation Summary The left ventricle is normal in size. Left ventricular systolic function is normal without focal wall motion abnormalities. The ejection fraction is estimated to be 60-65%. The right ventricle is normal in size and function. The right ventricular systolic pressure is estimated to be at least 31 mmHg based on an estimated right atrial pressure of 3 mm Hg. The left atrium is mildly dilated. The right atrium is normal in size. There is no significant valvular heart disease. The aortic root is normal size. Procedure: A two-dimensional transthoracic echocardiogram with color flow and Doppler was performed. The study quality was technically adequate. A contrast injection of Definity was performed to improve assessment of LV function. The patient was in normal sinus rhythm during the exam. Left Ventricle: The left ventricle is normal in size. Left ventricular wall thickness is mild-moderately increased. Left ventricular systolic function is normal without focal wall motion abnormalities. The ejection fraction is estimated to be 60-65%. Diastolic parameters suggest probable normal left ventricular diastolic function and normal filling pressures. Right Ventricle: The right ventricle is normal in size and function. Atria: The left atrium is mildly dilated. The right atrium is normal in size. There is no Doppler evidence for an interatrial shunt. Mitral Valve: The mitral valve is normal in structure and function. There is mild mitral annular calcification. There is trace mitral regurgitation. Aortic Valve: The aortic valve is trileaflet. The aortic valve opens well. No aortic regurgitation is present. Tricuspid Valve: The tricuspid valve is normal in structure and function. There is mild tricuspid regurgitation. The right ventricular systolic pressure is estimated to be at least 31 mmHg based on an estimated right atrial pressure of 3 mm Hg. Pulmonic Valve: The pulmonic valve is normal in structure and function. There is no pulmonic valvular regurgitation. There is no significant valvular heart disease. Great Vessels: The aortic root is normal size. The ascending aorta is normal in size. The IVC is of normal diameter and collapses greater than 50% with a sniff. This suggests a low right atrial pressure of 3 mm Hg. Pericardium/ Pleura There is no pericardial effusion. There is no pleural effusion. MMode/2D Measurements & Calculations LVIDd: 4.1 cm LVOT diam: 2.2 cm LVIDs: 2.6 cm Ao root diam: 3.2 cm FS: 37.8 % asc Aorta Diam: 3.1 cm EPSS: 0.35 cm Ao Arch Diam (Prox Trans): 2.7 cm IVSd: 1.4 cm LVPWd: 1.3 cm LV zayas. diameter/BSA (cm/m^2): 2.4 LV sys. diameter/BSA (cm/m^2): 1.5 LA A2 area: 22.2 cm2 RA long axis: 5.1 cm LA A4 area: 16.8 cm2 RA area: 16.9 cm2 LA length (vol): 4.8 cm RA vol: 46.9 ml LA vol: 66.3 ml RA : 26.7 ml/m2 LA vol index: 37.7 ml/m2 RVD1 (basal): 3.2 cm TAPSE: 2.3 cm Doppler Measurements & Calculations Ao V2 max: 143.3 cm/sec LVOT Max Cuate: 131.0 cm/sec Ao V2 mean: 102.7 cm/sec LV V1 max P.9 mmHg Ao max P.2 mmHg LV V1 VTI: 27.2 cm Ao mean P.7 mmHg ADAL(I,D): 3.8 cm2 Ao V2 VTI: 27.8 cm ADAL(V,D): 3.6 cm2 sev ratio: 0.98 ADAL indexed to BSA (cm^2/m^2): 2.2 MV E max cuate: 118.0 cm/sec TR max cuate: 266.6 cm/sec MV A max cuate: 108.7 cm/sec TR max P.4 mmHg MV E/A: 1.1 PA V2 max: 119.1 cm/sec Med Peak E' Cuate: 7.5 cm/sec PA V2 mean: 79.3 cm/sec E/E' med: 15.7 PA mean P.8 mmHg Lat Peak E' Cuate: 9.2 cm/sec E/E' lat: 12.9 E/e' average: 14.3 MV dec time: 0.19 sec SV(LVOT): 106.8 ml Reading Physician:03:13 PM
[2020-03-12] MEDS: SODIUM CHLORIDE 0.9% 1,000 ML 100 ML IV (17:27)
[2020-03-12] MEDS: POTASSIUM CHLORIDE 40 MEQ in SODIUM CHLORIDE 0.9% 500 ML 130 ML IV (17:27)
[2020-03-12] MEDS: METOPROLOL IR 50 MG TABLET 100 MG PO (17:31)
[2020-03-12] MEDS: LABETALOL 20 MG/4 ML SYRINGE 10 MG IV (18:18)
--- NOTE | 2020-03-12 18:45 | PC.NURSE ---
Addendum entered by Melanie Lagunas R.N. 03/12/20 22:20: 2200- Patient BP wnl and heart rate NSR. Potassium rider complete, Potassium phosphate infusing, Insulin gtt at 6ml/hr. Patient is more awake and able to follow direction. Able to take pills with sips of water. Glycerine swab given for comfort. D5.45 infusing per order. Patient remains in guarded condition. PTT pending Heparin infusing per order. Will monitor. Original Note: 1800- Patient remains hypertensive. Given 100mg metoprolol po. Now giving IV 10mg labetolol IV with good result. Will monitor.
[2020-03-12] MEDS: DEXTROSE 5%-0.45% NS 1,000 ML 150 ML IV (19:10)
[2020-03-12 19:46] LABS: BUN Creatinine Ratio 37.5 (6-22); Blood Urea Nitrogen 27 mg/dL (7-17); Calcium 8.8 mg/dL (8.4-10.2); Carbon Dioxide 14 mmol/L (22-32); Chloride 109 mmol/L (98-107); Estimated Glomerular Filt Rate > 60.0 mL/min (>60); Glucose 90 mg/dL (70-100); HEMOLYSIS < 15 (0-50); Potassium 3.6 mmol/L (3.4-5.1); Sodium 140 mmol/L (137-145)
[2020-03-12 19:55] LABS: NT-proBNP (BNP-Adult 18+) 1240 pg/mL (<125)
[2020-03-12 20:01] LABS: Troponin I 0.189 ng/mL (0.01-0.034)
[2020-03-12] MEDS: ATORVASTATIN 20 MG TABLET 80 MG PO (21:17)
[2020-03-12] MEDS: GABAPENTIN 600 MG TABLET 1200 MG PO (21:17)
[2020-03-12] MEDS: METOPROLOL ER 25 MG TABLET PO (21:18)
[2020-03-12] MEDS: POTASSIUM PHOSPHATE 15 MMOL in DEXTROSE 5% IN WATER 250 ML 63.75 ML IV (21:47)
[2020-03-12 22:19] LABS: PTT Partial Thromboplastin Tim 37 SECONDS (26.4-36.2)
[2020-03-12] MEDS: HEPARIN 5,000 UNIT/ML VIAL 3000 UNIT IV (22:46)
[2020-03-13] VITALS (17 sets, daily range): BP systolic 106–155; BP diastolic 55–74; PULSE 51–96; RESP 14–37; TEMP 36.3–37.2; O2SAT 93–99
[2020-03-13] MEDS: DEXTROSE 5%-0.45% NS 1,000 ML 150 ML IV (01:50)
[2020-03-13 04:35] LABS: Add Manual Diff / Slide Review NO; Basophils Absolute Auto 100 /uL (0-100); Basophils Percent Auto 1.5 % (0-2); Eosinophils Absolute Auto 0 /uL (0-450); Hematocrit 32.1 % (36-46); Hemoglobin 10.3 g/dL (12.0-16.0); Lymphocytes Absolute Auto 3100 /uL (1100-4500); Lymphocytes Percent Auto 30.7 % (25-40); Mean Corpuscular HGB Conc 32.1 % (30-36); Mean Corpuscular Hemoglobin 25.4 PG (26-34); Mean Corpuscular Volume 79.1 fL (80-100); Monocytes Absolute Auto 1100 /uL (0-900); Monocytes Percent Auto 11.2 % (3-14); Neutrophils Absolute Auto 5700 /uL (1500-7000); Neutrophils Percent Auto 56.6 % (50-75); Platelet Count 309 X10^3/uL (150-400); Red Blood Cell Count 4.06 X10^6/uL (4.0-5.2); Red Cell Distribution Width 20.6 % (11.6-14.8)
[2020-03-13 04:37] LABS: PTT Partial Thromboplastin Tim 47 SECONDS (26.4-36.2)
[2020-03-13 04:45] LABS: Magnesium 2.2 mg/dL (1.6-2.3); Phosphorous 1.6 mg/dL (2.5-4.5)
[2020-03-13 04:46] LABS: Alanine Aminotransferase 22 IU/L (<35); Albumin 3.5 g/dL (3.5-5.0); Albumin Globulin Ratio 1.1 (1.0-2.8); Alkaline Phosphatase 86 U/L (38-126); Aspartate Aminotransferase 43 IU/L (14-36); BUN Creatinine Ratio 37.9 (6-22); Bilirubin Total 0.5 mg/dL (0.2-1.3); Blood Urea Nitrogen 22 mg/dL (7-17); Calcium 8.7 mg/dL (8.4-10.2); Carbon Dioxide 22 mmol/L (22-32); Chloride 108 mmol/L (98-107); Estimated Glomerular Filt Rate > 60.0 mL/min (>60); Globulin 3.1 g/dL (1.7-4.1); Glucose 132 mg/dL (70-100); HEMOLYSIS < 15 (0-50); Potassium 3.1 mmol/L (3.4-5.1); Sodium 137 mmol/L (137-145); Total Protein 6.6 g/dL (6.3-8.2)
[2020-03-13 05:07] LABS: Troponin I 0.203 ng/mL (0.01-0.034)
[2020-03-13 05:17] LABS: Anisocytosis 1+
--- NOTE | 2020-03-13 05:22 | PC.NURSE ---
Hospitalist informed of latest Trop-0.203, Phos-1.6, and K+-3.1. Awaiting orders.
[2020-03-13] MEDS: POTASSIUM CHLORIDE 60 MEQ in SODIUM CHLORIDE 0.9% 500 ML 88.333 ML IV (06:00)
[2020-03-13] MEDS: INSULIN ASPART 100 UNIT/ML INSULN PEN SUBCUT ×4 (06:00→21:37)
[2020-03-13] MEDS: NITROGLYCERIN OINT 1 INCH/GM OINT...G. 0.5 INCH TOP ×2 (06:38→14:15)
[2020-03-13 08:54] LABS: Cholesterol 288 mg/dL (140-199); HDL Cholesterol 39 mg/dL (40-60); LDL Cholesterol Calculated 174 mg/dL (<100); Triglycerides 373 mg/dL (35-150)
[2020-03-13 09:09] LABS: Troponin I 0.178 ng/mL (0.01-0.034)
[2020-03-13] MEDS: FLUoxetine 20 MG CAPSULE 60 MG PO (09:43)
[2020-03-13] MEDS: GABAPENTIN 600 MG TABLET PO ×3 (09:43→21:37)
[2020-03-13] MEDS: METOPROLOL ER 25 MG TABLET PO ×2 (09:43→21:39)
[2020-03-13] MEDS: INSULIN DETEMIR 100 UNIT/ML INSULN.PEN 40 UNIT SUBCUT ×2 (09:44→21:38)
[2020-03-13] MEDS: FENOFIBRATE 160 MG TABLET PO (09:44)
--- NOTE | 2020-03-13 10:47 | CM.DANOTE ---
Discharge Planning/Care Management DCP: assessment: Case received, EMR reviewed. Discussed in Team Rounds. Met now with pt and introduced self and role. Pt is a 49 year old female who admitted yesterday afternoon to care of hospitalist team. PCP: pt confirms today that this is: Constanza Leslie,[facility]. Payer: Medicare and Medicaid Consultation: with cardiology. Admission status: in review: per UR RN Nubia. Pt confirms she is functionally independent at baseline. At this time she does seem to have returned to her baseline alert/oriented status and says I was stupid to have stopped taking the insulin. She admits she does not always think well when she becomes ill. Pt, her and her mother all reside at the [facility]. Confirmed her contact # : cell: [phone]. Garett's cell: [phone]. 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 Pt's drives. Dr. Ku noted in Rounds that she was considering a COVID-19 test and she is updated now re the above information. She says Dr. Hurley will take over the case this afternoon. He is familiar with pt as he admitted her yesterday. DCP team will follow. At this point plan will likely be home with clinic followup but is still early in her stay. Hand off now to colleage on for the full day for prn followup. CM Discharge Assessment Start: 03/13/20 10:45 Freq: Status: Active Protocol: Document 03/13/20 10:45 ITV (Rec: 03/13/20 10:47 ITV [id number]) Discharge Planning Assessment Advance Directives? No History Provided By Patient,Medical Record Has Patient been admitted in last 30 No days? Comment [facility] Household Members spouse,other Comment lives at the [facility] with her and her mother. Review Status In Process
[2020-03-13 11:30] LABS: PTT Partial Thromboplastin Tim 49 SECONDS (26.4-36.2)
[2020-03-13] MEDS: POTASSIUM PHOSPHATE 15 MMOL in DEXTROSE 5% IN WATER 250 ML 63.75 ML IV (12:04)
[2020-03-13] MEDS: PANTOPRAZOLE 20 MG TABLET PO ×2 (12:57→21:41)
--- NOTE | 2020-03-13 12:57 | P.PN_ITS ---
Subjective Subjective Date Patient Seen: 03/13/20 Time Patient Seen: 12:57 Interval history: She is seen in her room here in the ICU today to follow up her DKA and NSTEMI. Her troponins have been 0.203 and then trending downward to 0.178. Her potassium level is low at 3.1 which will be supplemented again today. The phosphorus is 1.6 which will also be supplemented today. She has been resumed on her Levemir and is now off the insulin drip. She continues on t he heparin drip. Her A1c is 9.3. She tells me that her primary care is Constanza Leslie and that she stopped using her insulin a few days ago because she was sick of being poked, but then she corrected herself and says that she has a scanner so does not have to poke her fingers anymore. Ultimately she admits she has no good reason for why she stopped checking. 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 Perhaps the non ST elevation AL precipitated the DKA but it seems more likely to have been the other way around. Exam Vital Signs (past 8 hours): - 03/13/20 05:11 03/13/20 06:00 03/13/20 06:38 Temperature Pulse Rate 67 96 H 73 Respiratory Rate Blood Pressure 136/69 140/67 140/67 Pulse Oximetry 03/13/20 07:00 03/13/20 08:00 03/13/20 09:00 Temperature 97.9 F Pulse Rate 71 69 79 Respiratory Rate 15 37 H 21 Blood Pressure 127/62 124/58 L 132/71 Pulse Oximetry 95 93 97 Oxygen Delivery Method Room Air Oxygen Flow Rate 0 Narrative Exam Narrative: Alert and oriented X 3 and in no apparent distress. She looks much better and she says she feels back to normal. Heart is regular rate and rhythm without murmur Lungs are clear to auscultation bilaterally Extremities have no ankle edema. Objective Labs Result Diagrams: 03/13/20 04:15 03/13/20 04:15 Labs: Laboratory Results - last 24 hr 03/12/20 03/12/20 03/12/20 11:17 11:17 11:17 WBC RBC Hgb Hct MCV MCH MCHC RDW Plt Count Neut % (Auto) Lymph % (Auto) [place] % (Auto) Eos % (Auto) Baso % (Auto) Neut # (Auto) Lymph # (Auto) [place] # (Auto) Eos # (Auto) Baso # (Auto) RBC Morphology Anisocytosis PT 12.5 INR 1.1 APTT 30 D-Dimer 296 H VBG pH VBG pCO2 VBG pO2 VBG HCO3 VBG Total CO2 VBG O2 Saturation VBG Base Excess Sodium Potassium Chloride Carbon Dioxide BUN Creatinine Estimated GFR BUN/Creatinine Ratio Glucose Calcium Phosphorus Magnesium Total Bilirubin AST ALT Alkaline Phosphatase Total Creatine Kinase CK-MB (CK-2) CK-MB (CK-2) Rel Index Troponin I NT-Pro-B Natriuret Pep 2120 H Total Protein Albumin Globulin Albumin/Globulin Ratio Triglycerides Cholesterol LDL Cholesterol, Calc HDL Cholesterol Urine Color Urine Appearance Urine pH Ur Specific Jewett Urine Protein Urine Glucose (UA) Urine Ketones Urine Occult Blood Urine Nitrate Urine Bilirubin Urine Urobilinogen Ur Leukocyte Esterase Urine RBC Urine WBC Amorphous Sediment Urine Bacteria Ur Culture Indicated? Urine Test Nasal Screen MRSA (PCR) U Opiates 300ng/mL cut Ur Oxycodone Screen Urine Methadone Screen Ur Barbiturates Screen U Tricyclic Antidepress Ur Phencyclidine Scrn Ur Amphetamines Screen U Methamphetamines Scrn Ur MDMA Scrn (Ecstasy) U Benzodiazepines Scrn Urine Cocaine Screen U Marijuana (THC) Screen 03/12/20 03/12/20 03/12/20 13:37 13:37 13:37 WBC RBC Hgb Hct MCV MCH MCHC RDW Plt Count Neut % (Auto) Lymph % (Auto) [place] % (Auto) Eos % (Auto) Baso % (Auto) Neut # (Auto) Lymph # (Auto) [place] # (Auto) Eos # (Auto) Baso # (Auto) RBC Morphology Anisocytosis PT INR APTT D-Dimer VBG pH VBG pCO2 VBG pO2 VBG HCO3 VBG Total CO2 VBG O2 Saturation VBG Base Excess Sodium Potassium Chloride Carbon Dioxide BUN Creatinine Estimated GFR BUN/Creatinine Ratio Glucose Calcium Phosphorus Magnesium Total Bilirubin AST ALT Alkaline Phosphatase Total Creatine Kinase CK-MB (CK-2) CK-MB (CK-2) Rel Index Troponin I NT-Pro-B Natriuret Pep Total Protein Albumin Globulin Albumin/Globulin Ratio Triglycerides Cholesterol LDL Cholesterol, Calc HDL Cholesterol Urine Color Yellow Urine Appearance Clear Urine pH 5.0 Ur Specific Jewett 1.020 Urine Protein 2+ H Urine Glucose (UA) 2+ H Urine Ketones 3+ H Urine Occult Blood 3+ H Urine Nitrate Negative Urine Bilirubin Negative Urine Urobilinogen 0.2 Ur Leukocyte Esterase Negative Urine RBC 1-5/hpf Urine WBC None seen Amorphous Sediment 1+ Urine Bacteria None seen Ur Culture Indicated? Cult not indicated Urine Test Negative Nasal Screen MRSA (PCR) U Opiates 300ng/mL cut Negative Ur Oxycodone Screen Negative Urine Methadone Screen Negative Ur Barbiturates Screen Negative U Tricyclic Antidepress Negative Ur Phencyclidine Scrn Negative Ur Amphetamines Screen Negative U Methamphetamines Scrn Negative Ur MDMA Scrn (Ecstasy) Negative U Benzodiazepines Scrn Negative Urine Cocaine Screen Negative U Marijuana (THC) Screen Negative 03/12/20 03/12/20 03/12/20 14:00 14:05 16:30 WBC RBC Hgb Hct MCV MCH MCHC RDW Plt Count Neut % (Auto) Lymph % (Auto) [place] % (Auto) Eos % (Auto) Baso % (Auto) Neut # (Auto) Lymph # (Auto) [place] # (Auto) Eos # (Auto) Baso # (Auto) RBC Morphology Anisocytosis PT INR APTT D-Dimer VBG pH 7.23 L VBG pCO2 26.8 L VBG pO2 51 H VBG HCO3 11 L VBG Total CO2 12 L VBG O2 Saturation 80 H VBG Base Excess -16.0 L Sodium 134 L Potassium 3.6 Chloride 101 Carbon Dioxide 9 L* BUN 32 H Creatinine 0.82 Estimated GFR > 60.0 BUN/Creatinine Ratio 39.0 H Glucose 422 H D Calcium 8.3 L Phosphorus Magnesium Total Bilirubin 0.5 AST 37 H ALT 24 Alkaline Phosphatase 122 Total Creatine Kinase 807 H CK-MB (CK-2) 6.34 H CK-MB (CK-2) Rel Index 0.8 L Troponin I 0.193 H* NT-Pro-B Natriuret Pep Total Protein 7.5 Albumin 4.3 Globulin 3.2 Albumin/Globulin Ratio 1.3 Triglycerides Cholesterol LDL Cholesterol, Calc HDL Cholesterol Urine Color Urine Appearance Urine pH Ur Specific Jewett Urine Protein Urine Glucose (UA) Urine Ketones Urine Occult Blood Urine Nitrate Urine Bilirubin Urine Urobilinogen Ur Leukocyte Esterase Urine RBC Urine WBC Amorphous Sediment Urine Bacteria Ur Culture Indicated? Urine Test Nasal Screen MRSA (PCR) Negative for mrsa U Opiates 300ng/mL cut Ur Oxycodone Screen Urine Methadone Screen Ur Barbiturates Screen U Tricyclic Antidepress Ur Phencyclidine Scrn Ur Amphetamines Screen U Methamphetamines Scrn Ur MDMA Scrn (Ecstasy) U Benzodiazepines Scrn Urine Cocaine Screen U Marijuana (THC) Screen 03/12/20 03/12/20 03/12/20 19:24 19:24 19:24 WBC RBC Hgb Hct MCV MCH MCHC RDW Plt Count Neut % (Auto) Lymph % (Auto) [place] % (Auto) Eos % (Auto) Baso % (Auto) Neut # (Auto) Lymph # (Auto) [place] # (Auto) Eos # (Auto) Baso # (Auto) RBC Morphology Anisocytosis PT INR APTT D-Dimer VBG pH VBG pCO2 VBG pO2 VBG HCO3 VBG Total CO2 VBG O2 Saturation VBG Base Excess Sodium 140 Potassium 3.6 Chloride 109 H Carbon Dioxide 14 L BUN 27 H Creatinine 0.72 Estimated GFR > 60.0 BUN/Creatinine Ratio 37.5 H Glucose 90 D Calcium 8.8 Phosphorus Magnesium Total Bilirubin AST ALT Alkaline Phosphatase Total Creatine Kinase CK-MB (CK-2) CK-MB (CK-2) Rel Index Troponin I 0.189 H* NT-Pro-B Natriuret Pep 1240 H Total Protein Albumin Globulin Albumin/Globulin Ratio Triglycerides Cholesterol LDL Cholesterol, Calc HDL Cholesterol Urine Color Urine Appearance Urine pH Ur Specific Jewett Urine Protein Urine Glucose (UA) Urine Ketones Urine Occult Blood Urine Nitrate Urine Bilirubin Urine Urobilinogen Ur Leukocyte Esterase Urine RBC Urine WBC Amorphous Sediment Urine Bacteria Ur Culture Indicated? Urine Test Nasal Screen MRSA (PCR) U Opiates 300ng/mL cut Ur Oxycodone Screen Urine Methadone Screen Ur Barbiturates Screen U Tricyclic Antidepress Ur Phencyclidine Scrn Ur Amphetamines Screen U Methamphetamines Scrn Ur MDMA Scrn (Ecstasy) U Benzodiazepines Scrn Urine Cocaine Screen U Marijuana (THC) Screen 03/12/20 03/12/20 03/13/20 19:24 22:00 04:15 WBC RBC Hgb Hct MCV MCH MCHC RDW Plt Count Neut % (Auto) Lymph % (Auto) [place] % (Auto) Eos % (Auto) Baso % (Auto) Neut # (Auto) Lymph # (Auto) [place] # (Auto) Eos # (Auto) Baso # (Auto) RBC Morphology Anisocytosis PT INR APTT 37 H D D-Dimer VBG pH VBG pCO2 VBG pO2 VBG HCO3 VBG Total CO2 VBG O2 Saturation VBG Base Excess Sodium Potassium Chloride Carbon Dioxide BUN Creatinine Estimated GFR BUN/Creatinine Ratio Glucose Calcium Phosphorus 1.0 L* Magnesium 2.0 Total Bilirubin AST ALT Alkaline Phosphatase Total Creatine Kinase CK-MB (CK-2) CK-MB (CK-2) Rel Index Troponin I 0.203 H* NT-Pro-B Natriuret Pep Total Protein Albumin Globulin Albumin/Globulin Ratio Triglycerides Cholesterol LDL Cholesterol, Calc HDL Cholesterol Urine Color Urine Appearance Urine pH Ur Specific Jewett Urine Protein Urine Glucose (UA) Urine Ketones Urine Occult Blood Urine Nitrate Urine Bilirubin Urine Urobilinogen Ur Leukocyte Esterase Urine RBC Urine WBC Amorphous Sediment Urine Bacteria Ur Culture Indicated? Urine Test Nasal Screen MRSA (PCR) U Opiates 300ng/mL cut Ur Oxycodone Screen Urine Methadone Screen Ur Barbiturates Screen U Tricyclic Antidepress Ur Phencyclidine Scrn Ur Amphetamines Screen U Methamphetamines Scrn Ur MDMA Scrn (Ecstasy) U Benzodiazepines Scrn Urine Cocaine Screen U Marijuana (THC) Screen 03/13/20 03/13/20 03/13/20 04:15 04:15 04:15 WBC 10.0 RBC 4.06 Hgb 10.3 L Hct 32.1 L MCV 79.1 L D MCH 25.4 L MCHC 32.1 RDW 20.6 H Plt Count 309 Neut % (Auto) 56.6 D Lymph % (Auto) 30.7 [place] % (Auto) 11.2 Eos % (Auto) 0.0 L Baso % (Auto) 1.5 Neut # (Auto) 5700 Lymph # (Auto) 3100 [place] # (Auto) 1100 H Eos # (Auto) 0 Baso # (Auto) 100 RBC Morphology See below Anisocytosis 1+ H PT INR APTT 47 H D D-Dimer VBG pH VBG pCO2 VBG pO2 VBG HCO3 VBG Total CO2 VBG O2 Saturation VBG Base Excess Sodium 137 Potassium 3.1 L Chloride 108 H Carbon Dioxide 22 BUN 22 H Creatinine 0.58 Estimated GFR > 60.0 BUN/Creatinine Ratio 37.9 H Glucose 132 H Calcium 8.7 Phosphorus Magnesium Total Bilirubin 0.5 AST 43 H ALT 22 Alkaline Phosphatase 86 Total Creatine Kinase CK-MB (CK-2) CK-MB (CK-2) Rel Index Troponin I NT-Pro-B Natriuret Pep Total Protein 6.6 Albumin 3.5 Globulin 3.1 Albumin/Globulin Ratio 1.1 Triglycerides Cholesterol LDL Cholesterol, Calc HDL Cholesterol Urine Color Urine Appearance Urine pH Ur Specific Jewett Urine Protein Urine Glucose (UA) Urine Ketones Urine Occult Blood Urine Nitrate Urine Bilirubin Urine Urobilinogen Ur Leukocyte Esterase Urine RBC Urine WBC Amorphous Sediment Urine Bacteria Ur Culture Indicated? Urine Test Nasal Screen MRSA (PCR) U Opiates 300ng/mL cut Ur Oxycodone Screen Urine Methadone Screen Ur Barbiturates Screen U Tricyclic Antidepress Ur Phencyclidine Scrn Ur Amphetamines Screen U Methamphetamines Scrn Ur MDMA Scrn (Ecstasy) U Benzodiazepines Scrn Urine Cocaine Screen U Marijuana (THC) Screen 03/13/20 03/13/20 03/13/20 04:15 08:05 08:05 WBC RBC Hgb Hct MCV MCH MCHC RDW Plt Count Neut % (Auto) Lymph % (Auto) [place] % (Auto) Eos % (Auto) Baso % (Auto) Neut # (Auto) Lymph # (Auto) [place] # (Auto) Eos # (Auto) Baso # (Auto) RBC Morphology Anisocytosis PT INR APTT D-Dimer VBG pH VBG pCO2 VBG pO2 VBG HCO3 VBG Total CO2 VBG O2 Saturation VBG Base Excess Sodium Potassium Chloride Carbon Dioxide BUN Creatinine Estimated GFR BUN/Creatinine Ratio Glucose Calcium Phosphorus 1.6 L Magnesium 2.2 Total Bilirubin AST ALT Alkaline Phosphatase Total Creatine Kinase CK-MB (CK-2) CK-MB (CK-2) Rel Index Troponin I 0.178 H* NT-Pro-B Natriuret Pep Total Protein Albumin Globulin Albumin/Globulin Ratio Triglycerides 373 H Cholesterol 288 H LDL Cholesterol, Calc 174 H HDL Cholesterol 39 L Urine Color Urine Appearance Urine pH Ur Specific Jewett Urine Protein Urine Glucose (UA) Urine Ketones Urine Occult Blood Urine Nitrate Urine Bilirubin Urine Urobilinogen Ur Leukocyte Esterase Urine RBC Urine WBC Amorphous Sediment Urine Bacteria Ur Culture Indicated? Urine Test Nasal Screen MRSA (PCR) U Opiates 300ng/mL cut Ur Oxycodone Screen Urine Methadone Screen Ur Barbiturates Screen U Tricyclic Antidepress Ur Phencyclidine Scrn Ur Amphetamines Screen U Methamphetamines Scrn Ur MDMA Scrn (Ecstasy) U Benzodiazepines Scrn Urine Cocaine Screen U Marijuana (THC) Screen 03/13/20 11:14 WBC RBC Hgb Hct MCV MCH MCHC RDW Plt Count Neut % (Auto) Lymph % (Auto) [place] % (Auto) Eos % (Auto) Baso % (Auto) Neut # (Auto) Lymph # (Auto) [place] # (Auto) Eos # (Auto) Baso # (Auto) RBC Morphology Anisocytosis PT INR APTT 49 H D-Dimer VBG pH VBG pCO2 VBG pO2 VBG HCO3 VBG Total CO2 VBG O2 Saturation VBG Base Excess Sodium Potassium Chloride Carbon Dioxide BUN Creatinine Estimated GFR BUN/Creatinine Ratio Glucose Calcium Phosphorus Magnesium Total Bilirubin AST ALT Alkaline Phosphatase Total Creatine Kinase CK-MB (CK-2) CK-MB (CK-2) Rel Index Troponin I NT-Pro-B Natriuret Pep Total Protein Albumin Globulin Albumin/Globulin Ratio Triglycerides Cholesterol LDL Cholesterol, Calc HDL Cholesterol Urine Color Urine Appearance Urine pH Ur Specific Jewett Urine Protein Urine Glucose (UA) Urine Ketones Urine Occult Blood Urine Nitrate Urine Bilirubin Urine Urobilinogen Ur Leukocyte Esterase Urine RBC Urine WBC Amorphous Sediment Urine Bacteria Ur Culture Indicated? Urine Test Nasal Screen MRSA (PCR) U Opiates 300ng/mL cut Ur Oxycodone Screen Urine Methadone Screen Ur Barbiturates Screen U Tricyclic Antidepress Ur Phencyclidine Scrn Ur Amphetamines Screen U Methamphetamines Scrn Ur MDMA Scrn (Ecstasy) U Benzodiazepines Scrn Urine Cocaine Screen U Marijuana (THC) Screen Assessment & Plan Assessment & Plan narrative: Diabetic Ketoacidosis with Altered Mental Status, present on admission, acute - Stopping IVF, Insulin Drip and transfer out of the ICU - NSTEMI and Dehydration are the most likely causes identified on admission, COVID testing will also be done. - transition to SQ insulin home regimen on carb choice diet 03/13. Non ST elevation AL, present on admission, acute - IV Heparin and Metoprolol per cardiology recommendations - Dr. Miranda 03/12 - continue Aspirin and Lipitor - Echocardiogram and potential ETT pending, Discuss next step with cardiology after Echo report available, now that the DKA is resolved and the Troponin is trending down. - Repeat EKG 03/13 unchanged with SR, RAD, old Inferior AL and old anterolateral AL. Hyperlipidemia - Continue Atorvastatin and Fenofibrate - 03/13 Total Chol 288 and LDL 174 Acute Dehydration, present on admission, acute -IV bolus in ED, followed by IV NS infusion in the ICU on the DKA protocol -resolved 03/13 Hyponatremia, present on admission, acute -NA 128 03/12, up to 137 03/13 -Caused by dehydration -corrected with IVF NS per DKA protocol Hypokalemia -60 meq IV kcl 03/13 -Follow BMP 03/14 Loose Liquid Stools -Cdiff ordered 03/13 Depression -continue Prozac Hypertension, present on admission, chronic -Continue Losartan and Metoprolol Diabetes Mellitus II, present on admission, chronic - Elevated Ketones and low pH consistent with DKA and not Hyperosmolar hyperglycemic state - Resumed SQ Lantus/Novolog insulin and avoid oral hypoglycemics 03/13 Hyperlipidemia, present on admission, chronic - continue Atorvastatin Disposition -home versus transfer for cardiac cath 03/14. To be discussed with cardiology once Echo report available.
--- NOTE | 2020-03-13 13:15 | PC.NURSE ---
Updated med rec with pt and external med hx. Pt is mildly forgetful of medication regimen but is able to confirm meds with prompting. Called to Dr. Ku and reviewed current med orders against home med orders and Dr. Ku placed orders. Pt has been awake, alert, and appropriate this shift. She is making her needs known with clear speech. She has had several episodes of fecal incontinence (guiac neg) as well as some c/o acid reflux. Called to Dr. Hurley and received orders to send stool for CDiff, obtain COVID 19 swab, administer protonix x1 now. Reviewed pt's progress with Dr. Hurley and also obtained orders to downgrade status to acute care with telemetry monitoring.
--- NOTE | 2020-03-13 14:07 | PC.NURSE ---
Please note that heparin gtt is ordered with incorrect weight. Heparin is infusing and dosing is calculated based on a 73 kg weight (weight on admission to ICU). I notified pharmacy who was unable to change the dosing weight on the order.
[2020-03-13 14:12] LABS: Clostridium Difficile Tox PCR Negative for C. diff
[2020-03-13] MEDS: ASPIRIN EC 81 MG TABLET PO (16:33)
[2020-03-13] MEDS: NYSTATIN POWDER 30 GM 1 APPLIC TOP (16:34)
[2020-03-13] MEDS: HEPARIN DRIP 25,000 UNIT/500 ML IV.SOLN 23.358 UNIT IV (17:02)
[2020-03-13] MEDS: MAG HYDROX/ALUM/SIMETH 30 ML UDC PO (17:02)
[2020-03-13] MEDS: OXYCODONE/ACETAMINOPHEN 7.5/325 TABLET 1 TAB PO (18:35)
[2020-03-13 18:46] LABS: PTT Partial Thromboplastin Tim 48 SECONDS (26.4-36.2)
--- NOTE | 2020-03-13 20:19 | PC.NURSE ---
Addendum entered by Melanie Lagunas R.N. 03/13/20 22:50: 2250- Patient had a seven beat run of V-Tach rate 167. Vitals wnl. Dr. Hurley called and orders rec. Will monitor. Original Note: 1999- Patient noted to have a saturation of 77% while sleeping. Patient states she has known sleep apnea but does not wear her cpap. Patient placed on 2 liters cannula during sleep.
[2020-03-13] MEDS: ATORVASTATIN 20 MG TABLET 80 MG PO (21:36)
[2020-03-13] MEDS: NORTRIPTYLINE HCL 25 MG CAPSULE 50 MG PO (21:40)
[2020-03-13 23:43] LABS: BUN Creatinine Ratio 19.6 (6-22); Blood Urea Nitrogen 10 mg/dL (7-17); Calcium 8.5 mg/dL (8.4-10.2); Carbon Dioxide 25 mmol/L (22-32); Chloride 102 mmol/L (98-107); Estimated Glomerular Filt Rate > 60.0 mL/min (>60); Glucose 229 mg/dL (70-100); HEMOLYSIS < 15 (0-50); Magnesium 2.2 mg/dL (1.6-2.3); Potassium 3.1 mmol/L (3.4-5.1); Sodium 132 mmol/L (137-145)
[2020-03-14] VITALS (10 sets, daily range): BP systolic 119–149; BP diastolic 66–81; PULSE 53–71; RESP 16–18; TEMP 36.2–37.6; O2SAT 92–100
[2020-03-14 00:20] LABS: PTT Partial Thromboplastin Tim 67 SECONDS (26.4-36.2)
[2020-03-14] MEDS: POTASSIUM CHLORIDE 60 MEQ in SODIUM CHLORIDE 0.9% 500 ML 88.333 ML IV (01:10)
[2020-03-14 02:02] LABS: COVID19 Sendout Not Detected (Not Detect)
[2020-03-14] MEDS: MAG HYDROX/ALUM/SIMETH 30 ML UDC PO ×2 (05:19→12:18)
--- NOTE | 2020-03-14 06:05 | PC.NURSE ---
Lna Note-Patient slept all night with no complaints of pain, nausea, or loose stools. Maalox given in am for heartburn Heparin infused per protocol, 60Meq K+Cedric started per order for K+ 3.1 at 0005. SB, no ectopi. VSS COVID-19 reported by lab as negative Droplet Precautions removed.
[2020-03-14] MEDS: OXYCODONE/ACETAMINOPHEN 7.5/325 TABLET 1 TAB PO ×2 (06:45→15:39)
[2020-03-14 06:58] LABS: Hematocrit 33.3 % (36-46); Hemoglobin 10.5 g/dL (12.0-16.0)
[2020-03-14 07:01] LABS: PTT Partial Thromboplastin Tim 67 SECONDS (26.4-36.2)
[2020-03-14 07:02] LABS: Blood Urea Nitrogen 9 mg/dL (7-17); Calcium 8.6 mg/dL (8.4-10.2); Carbon Dioxide 27 mmol/L (22-32); Chloride 103 mmol/L (98-107); Estimated Glomerular Filt Rate > 60.0 mL/min (>60); Glucose 216 mg/dL (70-100); HEMOLYSIS < 15 (0-50); Potassium 4.4 mmol/L (3.4-5.1); Sodium 133 mmol/L (137-145)
[2020-03-14] MEDS: ASPIRIN EC 81 MG TABLET PO (08:16)
[2020-03-14] MEDS: LOSARTAN 50 MG TABLET PO (08:16)
[2020-03-14] MEDS: FLUoxetine 20 MG CAPSULE 60 MG PO (08:16)
[2020-03-14] MEDS: LORATADINE 10 MG TABLET PO (08:17)
[2020-03-14] MEDS: PANTOPRAZOLE 20 MG TABLET PO ×2 (08:17→20:56)
[2020-03-14] MEDS: SODIUM CHLORIDE 0.9% FLUSH 10 ML IV ×3 (08:17→20:57)
[2020-03-14] MEDS: FENOFIBRATE 160 MG TABLET PO (08:17)
[2020-03-14] MEDS: GABAPENTIN 600 MG TABLET PO ×3 (08:17→20:55)
[2020-03-14] MEDS: INSULIN ASPART 100 UNIT/ML INSULN PEN SUBCUT ×4 (08:21→20:57)
[2020-03-14] MEDS: METOPROLOL ER 25 MG TABLET PO ×2 (08:22→20:56)
[2020-03-14] MEDS: INSULIN DETEMIR 100 UNIT/ML INSULN.PEN 40 UNIT SUBCUT (08:22)
[2020-03-14] MEDS: NITROGLYCERIN OINT 1 INCH/GM OINT...G. 0.5 INCH TOP (08:26)
--- NOTE | 2020-03-14 11:23 | DI.NM.S_ITS ---
PROCEDURE: NM JUSTINE PERF SPECT R&S PHARM Rest and pharmacological stress myocardial perfusion SPECT with gated imaging and ejection fraction RADIOPHARMACEUTICAL: 19.7 mCi Tc-99m tetrafosmin IV at rest and 26.9 mCi Tc-99m tetrafosmin IV at peak effect of pharmacological stress. [id number] was performed. INDICATIONS: elevated troponin TECHNIQUE: Radiopharmaceutical was injected at peak stress test, and also at rest. SPECT images were obtained. SPECT myocardial perfusion images were displayed in short axis, horizontal long axis, and vertical long axis views. Gated images were reviewed using [employer] software. COMPARISON: None. CARDIAC STRESS: Patient started on treadmill but had to switch to pharmacologic study after 5 minutes as she was not able to keep up with the treadmill. She achieved 7 METS during this 5 minutes and maximum of 138 bpm with no significant ST/T changes. The pharmacologic stress test was performed under the supervision of an attending staff, using an infusion of Lexiscan . Hemodynamic data: There is normal blood pressure and heart rate response to pharmacologic stress. Symptoms: The patient denied anginal chest pain. Aminophylline: Not used EKG: No diagnostic changes of ischemia; no ectopy. FINDINGS: Raw data: There is good myocardial uptake of radiotracer. There was significant motion artifacts. Pquc-sy-psolu ratio is 0.43 (normal is less than 0.38 for tetrafosmin tracer). Left ventricle function: Gated images are suboptimal quality and cannot determine presence of wall motion abnormality. No transient ischemic dilation; TID is 1.00 (normal less than 1.3). Left ventricle resting end diastolic volume is 119 mL. Left ventricle stress ejection fraction is 68%; normal range is above 45%. Myocardial perfusion: There is a moderate-size, moderately severe defect involving the apical inferior, apical septal, apical anterior wall which extends to the mid anterior wall on [facility] supine and prone stress images. Only a small apical defect is present on rest images.. IMPRESSION: -Abnormal myocardial perfusion study. -Reversible ischemia in the mid-apical anterior wall. -Gated images could not be used for wall motion assessment due to significant artifact; -Results were communicated to the ordering provider at noon. Dictated by: Hang Nazario M.D. on 03/15/2020 at 16:13 Approved by: Hang Nazario M.D. on 03/15/2020 at 16:27
--- NOTE | 2020-03-14 11:53 | PM.PN.1 ---
Subjective Subjective Date Patient Seen: 03/14/20 Interval history: 49 y/o female admitted for DKA and Type 2 Myocardial Infarction. Patient denies any chest pain or shortness of breath. She reports she had a heart attack a few years ago. She does not recall the exact work up. She admits to not taking her insulin as she does not like to administer the shots. She is agreeable to resuming her insulin as prescribed. Exam Vital Signs (past 8 hours): - 03/14/20 04:00 03/14/20 07:33 03/14/20 07:45 Temperature 97.6 F 98.7 F Pulse Rate 59 L 68 Respiratory Rate 18 18 Blood Pressure 148/81 H 124/69 Pulse Oximetry 100 92 94 Oxygen Delivery Method Room Air Oxygen Flow Rate 0 Narrative Exam Narrative: pleasant female in NAD Lungs: clear to ausucultation CV: RRR nl Sl S2 2/6 SHIVA ABd: soft/ non tender/ non distended Ext: no edema Objective Labs Result Diagrams: 03/14/20 06:45 03/14/20 06:45 Labs: Laboratory Results - last 24 hr 03/13/20 03/13/20 03/13/20 12:00 12:55 18:28 Hgb Hct APTT 48 H Sodium Potassium Chloride Carbon Dioxide BUN Creatinine Estimated GFR BUN/Creatinine Ratio Glucose Calcium Magnesium C. difficile Tox (PCR) Negative for c. diff COVID-19 PCR Not detected 03/13/20 03/13/20 03/14/20 23:17 23:17 06:45 Hgb 10.5 L Hct 33.3 L APTT 67 H D Sodium 132 L Potassium 3.1 L Chloride 102 Carbon Dioxide 25 BUN 10 Creatinine 0.51 L Estimated GFR > 60.0 BUN/Creatinine Ratio 19.6 Glucose 229 H Calcium 8.5 Magnesium 2.2 C. difficile Tox (PCR) COVID-19 PCR 03/14/20 03/14/20 06:45 06:45 Hgb Hct APTT 67 H Sodium 133 L Potassium 4.4 D Chloride 103 Carbon Dioxide 27 BUN 9 Creatinine 0.45 L Estimated GFR > 60.0 BUN/Creatinine Ratio 20.0 Glucose 216 H Calcium 8.6 Magnesium C. difficile Tox (PCR) COVID-19 PCR Assessment & Plan Assessment & Plan narrative: Diabetic Ketoacidosis with Altered Mental Status, present on admission, acute - Stopping IVF, Insulin Drip and transfer out of the ICU - NSTEMI and Dehydration are the most likely causes identified on admission, COVID testing will also be done. - transition to SQ insulin home regimen on carb choice diet 5. -Blood sugars remain elevated, will increase Lantus to 45 units twice daily. Non ST elevation MA, present on admission, acute - IV Heparin and Metoprolol per cardiology recommendations - Dr. Miranda 03/12 - continue Aspirin and Lipitor - Echocardiogram and potential ETT pending, Discuss next step with cardiology after Echo report available, now that the DKA is resolved and the Troponin is trending down. - Repeat EKG 03/13 unchanged with SR, RAD, old Inferior MA and old anterolateral MA. - Discontinue IV heparin, will obtain Nuclear Stress Test per Dr. Rainey -Further recommendations pending the results of her nuc medicine testing Hyperlipidemia - Continue Atorvastatin and Fenofibrate - / Total Chol 288 and LDL 174 Acute Dehydration, present on admission, acute -IV bolus in ED, followed by IV NS infusion in the ICU on the DKA protocol -resolved 03/13 Hyponatremia, present on admission, acute -NA 128 /, up to 137 / -Caused by dehydration -corrected with IVF NS per DKA protocol -sodium still low at 133 today, but improvemd Hypokalemia -60 meq IV kcl 03/13 -Follow BMP 03/14 Loose Liquid Stools -Cdiff ordered 03/13 Depression -continue Prozac Hypertension, present on admission, chronic -Continue Losartan and Metoprolol Diabetes Mellitus II, present on admission, chronic - Elevated Ketones and low pH consistent with DKA and not Hyperosmolar hyperglycemic state - Resumed SQ Lantus/Novolog insulin and avoid oral hypoglycemics 03/13 Hyperlipidemia, present on admission, chronic - continue Atorvastatin Disposition -home versus transfer for cardiac cath 03/14. To be discussed with cardiology once Echo report available. -discussed with Cardiology, await Nuc Med testing. Further disposition pending results of above
[2020-03-14] MEDS: NYSTATIN POWDER 30 GM 1 APPLIC TOP (11:57)
--- NOTE | 2020-03-14 14:47 | DIET.PN ---
Dietary Progress Note Assessment: Mrs. Villalobos is a 49-year-old female admitted for vomiting, high blood sugars, and altered mental status. Initial blood sugar at admit was greater than 600 along with elevated ketones. She has a history of type 2 diabetes with no prior diabetic ketoacidosis. Her reported in the ED that she had been ?dry heaving for the past several days without eating or drinking?. She admits she has not been using her insulin for the past several days because she does not like to take shots. She also reported using a blood glucose scanner to she does not have to poke herself. HT: 157.48cm WT: 75.2kg BMI: 30.3 Labs: Gluc: 607,422,132,229,216 ketones: 14.41 Chol: 288 Tri LDL: 174 HDL: 39 A1c: 9.3 Urine Glucose: 2+ Urine Ketones: 3+ BNP: >2000 MNA: 13 Justin: 17 Nutrition Diagnosis: Altered nutrition related laboratory values r/t endocrine dysfunction aeb elevated plasma glucose, positive ketones, elevated Hgb A1c. Interventions: 1. Provided education on importance of monitoring BG and medication management. Provided handouts on glucose goals (fasting, pre/post meal). 2. Reviewed carbohydrate counting. Discussed the importance of carb management for glucose control. Handouts provided. 3. Provided information on [facility] diabetes education program. Will follow up. 4. Discussed healthy weight management for glucose control. Diet Order: CCD (small 30g) EER: 1500 shannon (20cal/kg) 75-90g pro (1-1.2) Monitoring/Evaluations: weight, PO's, associated labs, will follow up with additional education
[2020-03-14] MEDS: ATORVASTATIN 20 MG TABLET 80 MG PO (20:55)
[2020-03-14] MEDS: NORTRIPTYLINE HCL 25 MG CAPSULE 50 MG PO (20:56)
[2020-03-14] MEDS: INSULIN GLARGINE 100 UNIT/ML 3ML PEN 45 UNIT SUBCUT (20:57)
[2020-03-15] VITALS (7 sets, daily range): BP systolic 117–185; BP diastolic 58–83; PULSE 64–73; RESP 18–24; TEMP 36.2–36.9; O2SAT 94–99
[2020-03-15] MEDS: METOPROLOL ER 25 MG TABLET PO (08:34)
[2020-03-15] MEDS: LORATADINE 10 MG TABLET PO (08:34)
[2020-03-15] MEDS: FENOFIBRATE 160 MG TABLET PO (08:35)
[2020-03-15] MEDS: FLUoxetine 20 MG CAPSULE 60 MG PO (08:35)
[2020-03-15] MEDS: GABAPENTIN 600 MG TABLET PO ×2 (08:35→14:01)
[2020-03-15] MEDS: PANTOPRAZOLE 20 MG TABLET PO (08:35)
[2020-03-15] MEDS: INSULIN GLARGINE 100 UNIT/ML 3ML PEN 45 UNIT SUBCUT (08:35)
[2020-03-15] MEDS: LOSARTAN 50 MG TABLET PO (08:35)
[2020-03-15] MEDS: ASPIRIN EC 81 MG TABLET PO (08:35)
[2020-03-15] MEDS: INSULIN ASPART 100 UNIT/ML INSULN PEN SUBCUT ×2 (08:36→12:32)
[2020-03-15] MEDS: SODIUM CHLORIDE 0.9% FLUSH 10 ML IV ×2 (08:36→14:01)
[2020-03-15] MEDS: OXYCODONE/ACETAMINOPHEN 7.5/325 TABLET 1 TAB PO ×2 (08:39→14:01)
--- NOTE | 2020-03-15 13:08 | PC.NURSE ---
pt requesting tylenol for c/o headache- appetite good, denies n/v continues to have elevated bld glucose and covered per protocol for this- stress test this am which was reported as being abnormal and potentially needing transfer to [facility] for possible cath-
--- NOTE | 2020-03-15 13:09 | P.DS_ITS ---
History of Present Illness History of Present Illness Date Patient Seen: 03/15/20 Chief complaint: possible dehydration been puking 2 days Narrative: This is a 49-year-old female brought in by her due to vomiting and high blood sugars. She also has altered mental status. Initial blood sugar is greater than 600 along with elevated ketones and a low pH. Blood glucose 607 and 422. PH 7.23 and 7.31. CO2 9. Troponin 0.274 and 0.193. She has a history of type 2 diabetes and no history of type 1 diabetes or prior diabetic ketoacidosis. She appears to be experiencing a non ST elevation HI as her troponin is elevated and her EKG has no acute ST or T wave changes. She is in sinus tachycardia with right ventricular hypertrophy, evidence for an old inferior HI and evidence for an old anterolateral HI. She is unable to give any history. Her stated in the ED on the initial interview that she had been ?dry heaving for the past several days without eating or drinking?. A blood sugar this morning was almost 500. ? She has not been using her insulin for the past several days because she does not like to take shots. He said that she acts like this when her sugar is high. There are no reports of fevers, coughing, respiratory distress, chest pain, urinary symptoms. Her chest x-ray is normal along with her urinalysis, urine drug screen, head CT, KUB x-ray. The admitting ED PA spoke with Dr. Miranda who recommended heparin IV for 24-48 hours, then an echocardiogram and then possibly an ETT depending on course and results later this week. He apparently interpreted the elevated troponins as being related to the acute dehydration episode. The ketones are 14.41 and the BNP is above 2000. Discharge Providers Provider Date of admission: 03/12/20 15:33 Discharge Date: 03/15/20 Consults: 03/13/20 12:48 Consult to Dietitian, Adult Routine Comment: Reason For Exam: diabetic diet education Discharge provider: Marbella Lamas MD Summary Hospital Course Discharge Diagnosis: 1. Non ST Elevation HI 2. Diabetic ketoacidosis 3. Hyperlipidemia 4. Congestive Heart failure-preserved ejection fraction 5. Hypertension 6. GERD 7. Metabolic Encephalopathy-resolved 8. Hyponatremia Hospital Course: Patient was admitted for intractable nausea, vomiting, and DKA. She was initially confused and unable to provide any additional information. Her blood sugar improved with insulin. She had an elevated Troponin of .274 that reached a mario of .193. The patient denies chest pain. She had an echo which revealed normal LV function and no wall motion abnormalities. The patient undewent a stress test today which revealed reversible ischemia in the area of the LAD. Patient is being transferred to [facility] for definitive cardiac catherization. Her blood sugars remain elevated, and we have been adjusting her insulin accordingly. Her blood pressure is elevated and BP meds adjusted as well. Patient is anxious to go home but is willing to complete her work up. She is being transferred to [facility] currently. Exam Vital Signs (past 8 hours): - 03/15/20 07:25 03/15/20 08:34 03/15/20 08:35 Temperature 97.1 F L Pulse Rate 71 Respiratory Rate 18 Blood Pressure 185/83 H 185/83 H 185/83 H Pulse Oximetry 99 03/15/20 10:38 03/15/20 10:48 Temperature Pulse Rate Respiratory Rate Blood Pressure 117/58 L 117/58 L Pulse Oximetry Oxygen Delivery Method Room Air,Nasal Cannula Oxygen Flow Rate 1 Narrative Exam Narrative: Pleasant female Lungs: clear to auscultation CV: RRR nl Sl S2 2/6 SHIVA Abd: soft/ non tender/ non distended Ext: no edema Objective Labs Result Diagrams: 03/14/20 06:45 03/14/20 06:45 Discharge Plan Discharge Plan Patient Disposition: Xfer Disaster Altern Care Site Other facility: [facility] Discharge orders & Medications Prescriptions: No Action metoprolol succinate [Toprol XL] 25 mg tablet extended release 24 hr 25 mg PO BID Qty: 180 RF: 3 glimepiride 4 mg tablet 8 mg PO QAM Qty: 180 RF: 3 Disabled [address]ing Permit 1 stefani miscellaneous DIRECTED RF: 0 Greenleaf 1 pkg miscellaneous BID RF: 0 Trulicity 1.5 mg/0.5 mL pen injector 1.5 ml subcut QWEEK RF: 0 fluoxetine 20 mg capsule 60 mg PO DAILY RF: 0 fenofibrate 160 mg tablet 160 mg PO DAILY RF: 0 cetirizine 10 mg Tablet 10 mg PO DAILY RF: 0 albuterol sulfate 2.5 MG/3 ML solution for nebulization 3 ml INH Q6HP PRN (Reason: Shortness Of Breath) RF: 0 temazepam 30 mg capsule 30 mg PO BEDTIME RF: 0 nortriptyline 50 mg capsule 50 mg PO BEDTIME RF: 0 metoclopramide HCl 10 mg tablet 10 mg PO ACHS RF: 0 insulin aspart U-100 [Novolog Flexpen U-100 Insulin] 100 unit/mL insulin pen 1 dose SUBCUT BID RF: 0 Levemir U-100 Insulin 100 unit/mL solution 35 unit SUBCUT SEE INSTRUCTIONS RF: 0 atorvastatin 80 mg tablet 80 mg PO DAILY RF: 0 Jardiance 25 mg tablet 25 mg PO DAILY RF: 0 omeprazole 20 mg capsule,delayed release(DR/EC) 20 mg PO BID RF: 0 gabapentin 600 mg Tablet 600 mg PO TID RF: 0 hydrochlorothiazide 12.5 mg tablet 12.5 mg PO DAILY RF: 0 losartan 50 mg tablet 50 mg PO DAILY RF: 0 albuterol sulfate [Ventolin HFA] 90 mcg/actuation HFA aerosol inhaler 2 puff INHALATION PRN PRN (Reason: Shortness Of Breath) RF: 0 oxycodone-acetaminophen 10-325 mg tablet 1 tab PO TID PRN (Reason: Pain, Moderate) RF: 0 Diet/Activity/Treatments Diet: Carb-consistent/Diabetic, Low-fat, Low-sodium and Low-cholesterol Liquid consistency: Normal/Thin Food texture: Regular
--- NOTE | 2020-03-15 15:18 | PC.NURSE ---
report called to ilene at [facility] for transfer-
== END 2020-03-15 15:20 | disposition short-term general hospital (02) | DRG 637 ==
LOC: ED 15:23 → AC 15:34 → ICU 03-13 12:44
PROVIDERS: Internal Medicine; Nurse Practitioner Adult Health; Admitting Provider Family Medicine; Emergency Provider Nurse Practitioner Family; Referring Provider Nurse Practitioner Family; Visit Provider Family Medicine
DX: E11.10 Type 2 diabetes mellitus with ketoacidosis without coma (principal); I21.4 Non-ST elevation (NSTEMI) myocardial infarction; G93.41 Metabolic encephalopathy; E87.1 Hypo-osmolality and hyponatremia; I50.30 Unspecified diastolic (congestive) heart failure; Z79.4 Long term (current) use of insulin; I11.0 Hypertensive heart disease with heart failure; T38.3X6A Underdosing of insulin and oral hypoglycemic [antidiabetic] drugs, initial encounter; Z91.128 Patient's intentional underdosing of medication regimen for other reason; E86.0 Dehydration; F32.9 Major depressive disorder, single episode, unspecified; E78.5 Hyperlipidemia, unspecified; K21.9 Gastro-esophageal reflux disease without esophagitis; E87.6 Hypokalemia; Z03.818 Encounter for observation for suspected exposure to other biological agents ruled out
CPT/HCPCS: 36415; 70450; 71045; 74018; 78452; 80048; 80053; 80061; 80305; 81001; 81025; 82009; 82150; 82550; 82553; 82805; 82962; 83605; 83690; 83735; 83880; 84100; 84145; 84484; 85014; 85018; 85025; 85379; 85610; 85730; 87493; 87635; 87797; 93005; 93017; 93306; 94762; 96361; 96374; 96375; 96376; 99285; 99291; 99292; A9502; J1644; J2405; J2785; J3480; Q9957

== ENCOUNTER → 2020-04-29 10:19 | Outpatient (CLI) | payer MEDICARE, MEDICAID, SELFPAY ==
[2020-03-12 17:39] VITALS: BMI 29.4
[2020-04-29 11:47] LABS: Hemoglobin A1C% w Est Avg Glu 8.7 % (4.0-6.0)
[2020-04-29 11:54] LABS: Protein (Total) Urine Random 28 mg/dL (0-12); Protein Creatinine Ratio Urine 1.55 GRAM/24H
== END ==
PROVIDERS: Referring Provider Nurse Practitioner Family; Visit Provider Nurse Practitioner Family
DX: E11.65 Type 2 diabetes mellitus with hyperglycemia (principal)
CPT/HCPCS: 36415; 82570; 83036; 84156

== ENCOUNTER → 2020-08-06 11:05 | Outpatient (CLI) | payer MEDICARE, MEDICAID, SELFPAY ==
[2020-03-12 17:39] VITALS: BMI 29.4
[2020-08-08 09:23] LABS: COVID19 Sendout Not Detected (Not Detect)
== END ==
PROVIDERS: Family Provider Internal Medicine Cardiovascular Disease; Visit Provider Nurse Practitioner
DX: Z11.59 Encounter for screening for other viral diseases (principal)
CPT/HCPCS: 87635

== ENCOUNTER 2021-02-28 18:19 | Inpatient (IN) | payer MEDICARE, MEDICAID, SELFPAY ==
[2020-03-12 17:39] VITALS: BMI 29.4
[2021-02-28] VITALS (9 sets, daily range): BP systolic 109–136; BP diastolic 58–84; PULSE 84–103; RESP 15–34; TEMP 36.2–36.5; O2SAT 94–98; BMI 30.2
[2021-02-28 19:08] LABS: Add Manual Diff / Slide Review NO; Basophils Absolute Auto 100 /uL (0-100); Basophils Percent Auto 0.4 % (0-2); Eosinophils Absolute Auto 100 /uL (0-450); Eosinophils Percent Auto 0.2 % (2-4); Hematocrit 36.8 % (36-46); Hemoglobin 12.8 g/dL (12.0-16.0); Lymphocytes Absolute Auto 2800 /uL (1100-4500); Mean Corpuscular HGB Conc 34.8 % (30-36); Mean Corpuscular Hemoglobin 27.4 PG (26-34); Mean Corpuscular Volume 78.7 fL (80-100); Monocytes Absolute Auto 1400 /uL (0-900); Monocytes Percent Auto 5.1 % (3-14); Neutrophils Absolute Auto 23500 /uL (1500-7000); Neutrophils Percent Auto 84.3 % (50-75); Platelet Count 320 X10^3/uL (150-400); Red Blood Cell Count 4.67 X10^6/uL (4.0-5.2); Red Cell Distribution Width 15.8 % (11.6-14.8); White Blood Cell Count 27.8 X10^3/uL (4.5-11.0)
[2021-02-28 19:12] LABS: INR 1.1 (0.9-1.3); Prothrombin Time 12.5 SECONDS (10.1-12.7)
[2021-02-28 19:14] LABS: PTT Partial Thromboplastin Tim 30 SECONDS (26.4-36.2)
[2021-02-28 19:16] LABS: Alanine Aminotransferase 21 IU/L (<35); Albumin 4.7 g/dL (3.5-5.0); Albumin Globulin Ratio 1.6 (1.0-2.8); Alkaline Phosphatase 115 U/L (38-126); Aspartate Aminotransferase 27 IU/L (14-36); BUN Creatinine Ratio 11.4 (6-22); Bilirubin Total 0.4 mg/dL (0.2-1.3); Blood Urea Nitrogen 13 mg/dL (7-17); Calcium 9.9 mg/dL (8.4-10.2); Carbon Dioxide 22 mmol/L (22-32); Estimated Glomerular Filt Rate 50.9 mL/min (>60); Glucose 290 mg/dL (70-100); HEMOLYSIS < 15 (0-50); Lipase 140 U/L (23-300); Potassium 3.1 mmol/L (3.4-5.1); Total Protein 7.7 g/dL (6.3-8.2)
[2021-02-28 19:24] LABS: Chloride 75 mmol/L (98-107); Sodium 115 mmol/L (137-145)
--- NOTE | 2021-02-28 19:42 | ED_ITS ---
HPI - Nausea/Vomiting/Diarrhea General Chief complaint: Nausea/Vomiting/Diarrhea Stated complaint: NAUSEA PUKING Time Seen by Provider: 02/28/21 19:35 Source: patient Mode of arrival: Ambulatory Limitations: no limitations History of Present Illness HPI Narrative: Patient states that last evening she did have a headache. This is not usual for her however she stated that she did take quite a bit of aspirin last night to control the discomfort. She eventually did go to bed. When she woke up this morning her headache was much better but not completely resolved and she took more aspirin. Her last dose was at noon. She stated that shortly after waking up this morning she has had abdominal cramping and nausea and vomiting. No diarrhea. Has been unable to control in if her symptoms at home. She did not take her insulin today. She did take her other oral medications. No chest pain. No shortness of breath. No recent travel. No recent antibiotic use. Related Data Home Medications Medication Instructions Recorded Confirmed Disabled Parking Permit 1 stefani MISCELLANEOUS DIRECTED 08/19/18 02/28/21 [place] 1 pkg MISCELLANEOUS BID 08/19/18 02/28/21 Levemir U-100 Insulin 35 unit SUBCUT SEE INSTRUCTIONS 03/23/19 02/28/21 cetirizine 10 mg PO DAILY 03/23/19 02/28/21 dulaglutide [Trulicity] 1.5 ml SUBCUT QWEEK 03/23/19 02/28/21 fenofibrate 160 mg PO DAILY 03/23/19 02/28/21 fluoxetine 60 mg PO DAILY 03/23/19 02/28/21 insulin aspart U-100 [Novolog 1 dose SUBCUT BID 03/23/19 02/28/21 Flexpen U-100 Insulin] metoclopramide HCl 10 mg PO ACHS 03/23/19 02/28/21 nortriptyline 50 mg PO BEDTIME 03/23/19 02/28/21 atorvastatin 80 mg PO DAILY 08/07/19 02/28/21 empagliflozin [Jardiance] 25 mg PO DAILY 08/07/19 02/28/21 omeprazole 20 mg PO BID 08/07/19 02/28/21 albuterol sulfate [Ventolin HFA] 2 puff INHALATION PRN PRN 03/13/20 02/28/21 gabapentin 600 mg PO TID 03/13/20 02/28/21 hydrochlorothiazide 12.5 mg PO DAILY 03/13/20 02/28/21 losartan 50 mg PO DAILY 03/13/20 02/28/21 oxycodone-acetaminophen 1 tab PO TID PRN 03/13/20 02/28/21 evolocumab [Repatha SureClick] 140 mg SUBCUT Q2W 02/28/21 02/28/21 insulin glargine [Lantus Solostar 30 unit SUBCUT BID 02/28/21 02/28/21 U-100 Insulin] Previous Rx's Medication Instructions Recorded metoprolol succinate 25 mg 25 mg PO BID #180 tab 10/08/18 tablet,extended release 24 hr glimepiride 4 mg tablet 8 mg PO QAM #180 tab 03/07/20 Allergies Allergy/AdvReac Type Severity Reaction Status Date / Time Sulfa (Sulfonamide Allergy Severe hives Verified 02/28/21 18:30 Antibiotics) [SULFA (SULFONAMIDE ANTIBIOTICS)] Review of Systems Constitutional Constitutional: Denies chills, Denies fatigue, Denies fever(s) and Reports headache(s) Eyes Eyes: Denies exophthalmos and Denies change in vision ENT Ears, Nose, Mouth, and Throat: Reports headache(s) and Denies sore throat Cardiovascular Cardiovascular: Denies chest pain and Denies dyspnea Respiratory Respiratory: Denies dyspnea Gastrointestinal Gastrointestinal: Reports abdominal pain, Denies change in bowel habits, Reports nausea and Reports vomiting Genitourinary Genitourinary: Denies dysuria Genitourinary: Denies dysuria Musculoskeletal Musculoskeletal: Denies arthralgias and Denies myalgias Integumentary/Breasts Skin/Breast: Denies rash Neurologic Neurologic: Denies behavioral changes and Reports headache(s) Psychiatric Psychiatric: Denies behavioral changes Endocrine Endocrine: Denies fatigue Hematologic/Lymphatic On Anticoagulants: No Allergic/Immunologic Allergic/Immunologic: Denies urticaria Patient History Medical History Anxiety Chronic low back pain Coronary artery disease Diabetes Diabetic ketoacidosis GERD (gastroesophageal reflux disease) History of non-ST elevation myocardial infarction (NSTEMI) History of ovarian cancer in adulthood Hyperlipidemia Hypertension Surgical History (Updated 03/01/21 @ 00:26 by NORMA Zacarias) History of coronary artery stent placement History of hysterectomy for cancer Family History (Updated 03/01/21 @ 00:29 by NORMA Zacarias) Father Congestive heart failure Hx of CABG Mother Diabetes mellitus Congestive heart failure History of sepsis due to sepsis Social History household members: spouse and other Smoking Status: Never smoker alcohol intake: never substance use type: does not use Smoking Status: Never smoker alcohol intake frequency: holidays/special occasions only Substance Use Type: does not use Exam Initial Vital Signs Initial Vital Signs: Vital Signs Temperature 97.3 F L 02/28/21 18:30 Pulse Rate 103 H 02/28/21 18:30 Respiratory Rate 15 02/28/21 18:30 Blood Pressure 122/70 02/28/21 18:30 Pulse Oximetry 97 02/28/21 18:30 Const General: cooperative, comfortable and well developed Limitations: mental status not altered HENMT Head: normal to inspection and normocephalic Resp Effort & Inspection: normal respiratory effort Auscultation: clear to auscultation bilaterally Cardio Rate: regular rate Rhythm: regular rhythm GI Inspection: non-distended Palpation: soft, No firm and No tender Back/Spine/Pelvis Back: normal to inspection Skin Lesions: no lesions Rashes: no rashes Neuro General: patient alert, patient awake and patient oriented x3 Cognition: normal cognition Speech: speech normal Extrem General: normal to inspection and capillary refill normal Psych Appearance: grossly normal and well kempt Scores GCS Fabiola coma scale eye opening: Spontaneous [place] coma scale verbal response: Orientated [place] coma scale motor response: Obey commands Fabi[place] coma scale total score: 15 Course Orders Ordered: ED Orders 02/28/21 18:33 EKG-12 Lead Stat 02/28/21 18:37 Acetaminophen Stat Complete Blood Count AUTO DIFF Stat Comprehensive Metabolic Panel Stat Hemoglobin A1C% w Est Avg Glu Urgent Ketones (Beta-Hydroxybutyrate) Stat Lipase Stat Magnesium Stat Partial Thromboplastin Time Stat Phosphorous Stat Test Serum,Qual Stat Prothrombin Time INR Stat Salicylate Stat Troponin & CK Cardiac Panel Stat 02/28/21 20:19 COVID19 - ADMIT ([employer] swab/PCR) Stat 02/28/21 20:48 Education, smoking cessation ONGOING 02/28/21 21:03 Venous Blood Gas Stat 02/28/21 22:30 Urinalysis and Microscopic Urgent 02/28/21 22:43 Basic Metabolic Panel Urgent Ketones (Beta-Hydroxybutyrate) Stat Magnesium Urgent Osmolality, Serum Urgent Procalcitonin Stat Salicylate Stat Troponin I Urgent 03/01/21 05:00 Basic Metabolic Panel DAILY Complete Blood Count AUTO DIFF DAILY Magnesium DAILY Phosphorous DAILY Prothrombin Time INR Routine Troponin I Routine 03/02/21 05:00 Basic Metabolic Panel DAILY Complete Blood Count AUTO DIFF DAILY Magnesium DAILY Phosphorous DAILY 03/03/21 05:00 Complete Blood Count AUTO DIFF DAILY Magnesium DAILY Phosphorous DAILY Albuterol (Albuterol Hfa Mdi 60 Puff/8 Gm Inhaler) 2 puff INH PRN PRN PRN Reason: Shortness Of Breath Atorvastatin Calcium (Atorvastatin 20 Mg Tablet) 80 mg PO DAILY ADRIANA Dextrose (Dextrose 50 % In Water 25 Gm/50 Ml Syringe) 25 gm IV PRN PRN PRN Reason: Hypoglycemia Enoxaparin Sodium (Enoxaparin 40 Mg/0.4 Ml Syringe) 40 mg SUBCUT DAILY ADRIANA Fenofibrate (Fenofibrate 160 Mg Tablet) 160 mg PO DAILY ADRIANA Fluoxetine HCl (Fluoxetine 20 Mg Capsule) 60 mg PO DAILY ADRIANA Gabapentin (Gabapentin 600 Mg Tablet) 600 mg PO TID [facility] Last Admin: 02/28/21 22:32 Dose: 600 mg Documented by: ALBERT Sodium Chloride (Normal Saline 0.9%) 1,000 mls @ 125 mls/hr IV CONT ADRIANA Last Infusion: 02/28/21 21:15 Dose: 125 mls/hr Documented by: Admin: 02/28/21 19:54 Dose: 125 mls/hr Documented by: DILSHAD Sodium Chloride (Normal Saline 0.9%) 1,000 mls @ 150 mls/hr IV CONT ADRIANA Last Admin: 02/28/21 22:10 Dose: 125 mls/hr Documented by: ALBERT Influenza Virus Vaccine (Influenza Vaccine 0.5 Ml Syringe) 0.5 ml IM .ONCE ONE Stop: 03/01/21 09:01 Insulin Aspart (Insulin Aspart 100 Unit/Ml Insuln Pen) 0 unit SUBCUT ACHS [facility]; Protocol Last Admin: 03/01/21 01:12 Dose: 300 unit Documented by: DORIS Cosigned by: CTRMAX Admin: 02/28/21 23:57 Dose: 2 unit Documented by: DORIS Cosigned by: BOUCHRA Admin: 02/28/21 22:18 Dose: 4 unit Documented by: ALBERT Cosigned by: ALEXX Insulin Glargine (Insulin Glargine 100 Unit/Ml 3ml Pen) 30 unit SUBCUT BID [facility] Last Admin: 02/28/21 22:26 Dose: 30 unit Documented by: ALBERT Cosigned by: KAYLAN Losartan Potassium (Losartan 50 Mg Tablet) 50 mg PO DAILY [facility] Metoclopramide HCl (Metoclopramide Hcl 10 Mg Tablet) 10 mg PO ACHS [facility] Metoprolol Succinate (Metoprolol Er 25 Mg Tablet) 25 mg PO BID [facility] Naloxone HCl (Naloxone 0.4 Mg/Ml Vial) 0.2 mg IV Q2MIN PRN PRN Reason: Opiate Reversal Nortriptyline HCl (Nortriptyline Hcl 25 Mg Capsule) 50 mg PO BEDTIME [facility] Last Admin: 02/28/21 22:32 Dose: 50 mg Documented by: ALBERT Ondansetron HCl (Ondansetron 4 Mg/2 Ml Inj) 4 mg IV Q8HR PRN PRN Reason: Nausea And Vomiting Oxycodone HCl (Oxycodone Ir 5 Mg Tablet) 5 mg PO TID PRN PRN Reason: Pain, Moderate (4-6) Oxycodone/Acetaminophen (Oxycodone/Acetaminophen 5/325 Tablet) 1 tab PO TID PRN PRN Reason: Pain, Moderate (4-6) Last Admin: 02/28/21 23:54 Dose: 1 tab Documented by: DORIS Pantoprazole Sodium (Pantoprazole 20 Mg Tablet) 20 mg PO BID [facility] Last Admin: 02/28/21 22:13 Dose: 20 mg Documented by: ALBERT Discontinued Medications Fluoxetine HCl (Fluoxetine 20 Mg Capsule) 60 mg PO DAILY [facility] Last Admin: 02/28/21 22:42 Dose: Not Given Documented by: ALBERT Potassium Chloride 40 meq/ (Sodium Chloride) 520 mls @ 130 mls/hr IV NOW ONE Stop: 03/01/21 01:18 Last Admin: 02/28/21 22:54 Dose: 130 mls/hr Documented by: ALBERT Cosigned by: KAYLAN Magnesium Sulfate (Magnesium Sulfate) 2 gm in 50 mls @ 100 mls/hr IV NOW ONE Stop: 02/28/21 21:48 Last Infusion: 02/28/21 22:54 Dose: 0 mls/hr Documented by: ALBERT Cosigned by: KAYLAN Admin: 02/28/21 22:13 Dose: 100 mls/hr Documented by: ALBERT Cosigned by: KAYLAN Insulin Glargine (Insulin Glargine 100 Unit/Ml 3ml Pen) 30 unit SUBCUT AC ADRIANA Last Admin: 02/28/21 22:42 Dose: Not Given Documented by: ALBERT Insulin Glargine (Insulin Glargine 100 Unit/Ml 3ml Pen) 30 unit SUBCUT AC DARIANA Insulin Glargine (Insulin Glargine 100 Unit/Ml 3ml Pen) 30 unit SUBCUT BID ADRIANA Last Admin: 02/28/21 22:42 Dose: Not Given Documented by: ALBERT Melatonin (Melatonin 3 Mg Tablet) 9 mg PO BEDTIME ONE Stop: 02/28/21 23:11 Last Admin: 02/28/21 23:54 Dose: 9 mg Documented by: DORIS Ondansetron HCl (Ondansetron 4 Mg/2 Ml Inj) 4 mg IV NOW ONE Stop: 02/28/21 20:13 Last Admin: 02/28/21 20:17 Dose: 4 mg Documented by: DILSHAD Vital Signs Vital signs: Vital Signs - 8 hr 02/28/21 18:30 02/28/21 19:31 02/28/21 20:00 Temperature 97.3 F L Pulse Rate 103 H 94 H Respiratory Rate 15 21 Blood Pressure 122/70 124/76 121/59 L Pulse Oximetry 97 94 98 02/28/21 20:30 02/28/21 20:31 02/28/21 21:00 Temperature Pulse Rate 94 H 98 H 91 H Respiratory Rate 25 H 26 H 22 Blood Pressure 109/58 L 132/62 Pulse Oximetry 98 97 98 02/28/21 21:20 Temperature Pulse Rate 91 H Respiratory Rate 34 H Blood Pressure 125/73 Pulse Oximetry 97 MDM - Nausea/Vomiting/Diarrhea Lab Data Attestation: I reviewed the patient's lab results. Result diagrams: 02/28/21 18:37 02/28/21 22:43 Labs: Lab Results 02/28/21 02/28/21 02/28/21 Range/Units 18:37 18:37 18:37 WBC 27.8 H (4.5-11.0) X10^3/uL RBC 4.67 (4.0-5.2) X10^6/uL Hgb 12.8 (12.0-16.0) g/dL Hct 36.8 (36-46) % MCV 78.7 L (80-100) fL MCH 27.4 (26-34) PG MCHC 34.8 (30-36) % RDW 15.8 H (11.6-14.8) % Plt Count 320 (150-400) X10^3/uL Neut % (Auto) 84.3 H (50-75) % Lymph % (Auto) 10.0 L (25-40) % Yell % (Auto) 5.1 (3-14) % Eos % (Auto) 0.2 L (2-4) % Baso % (Auto) 0.4 (0-2) % Neut # (Auto) 54683 H (2743-6099) /uL Lymph # (Auto) 2800 (6713-2204) /uL Yell # (Auto) 1400 H (0-900) /uL Eos # (Auto) 100 (0-450) /uL Baso # (Auto) 100 (0-100) /uL PT 12.5 (10.1-12.7) SECONDS INR 1.1 (0.9-1.3) APTT 30 D (26.4-36.2) SECONDS VBG pH (7.33-7.43) VBG pCO2 (45-50) mmHg VBG pO2 (35-45) mmHg VBG HCO3 (23-28) mmol/L VBG Total CO2 (24-29) mmol/L VBG O2 Saturation (70-75) % VBG Base Excess (0-4) mmol/L Sodium 115 L* (137-145) mmol/L Potassium 3.1 L (3.4-5.1) mmol/L Chloride 75 L* (98-107) mmol/L Carbon Dioxide 22 (22-32) mmol/L BUN 13 (7-17) mg/dL Creatinine 1.14 H (0.52-1.04) mg/dL Estimated GFR 50.9 L (>60) mL/min BUN/Creatinine Ratio 11.4 (6-22) Glucose 290 H (70-100) mg/dL Hemoglobin A1c (4.0-6.0) % Calcium 9.9 (8.4-10.2) mg/dL Phosphorus (2.5-4.5) mg/dL Magnesium (1.6-2.3) mg/dL Total Bilirubin 0.4 (0.2-1.3) mg/dL AST 27 (14-36) IU/L ALT 21 (<35) IU/L Alkaline Phosphatase 115 (38-126) U/L Total Creatine Kinase (30-135) U/L CK-MB (CK-2) (<2.37) ng/mL CK-MB (CK-2) Rel Index (1.5-5.0) % Troponin I (0.01-0.034) ng/mL Total Protein 7.7 (6.3-8.2) g/dL Albumin 4.7 (3.5-5.0) g/dL Globulin 3.0 (1.7-4.1) g/dL Albumin/Globulin Ratio 1.6 (1.0-2.8) Lipase 140 (23-300) U/L Serum , Qual (Negative) Salicylates (<20) mg/dL Acetaminophen (10-30) ug/mL Ketones (<0.27) mmol/L SARS-CoV-2 (PCR) (Negative) 02/28/21 02/28/21 02/28/21 Range/Units 18:37 18:37 18:37 WBC (4.5-11.0) X10^3/uL RBC (4.0-5.2) X10^6/uL Hgb (12.0-16.0) g/dL Hct (36-46) % MCV (80-100) fL MCH (26-34) PG MCHC (30-36) % RDW (11.6-14.8) % Plt Count (150-400) X10^3/uL Neut % (Auto) (50-75) % Lymph % (Auto) (25-40) % Yell % (Auto) (3-14) % Eos % (Auto) (2-4) % Baso % (Auto) (0-2) % Neut # (Auto) (6946-6540) /uL Lymph # (Auto) (5809-8513) /uL Yell # (Auto) (0-900) /uL Eos # (Auto) (0-450) /uL Baso # (Auto) (0-100) /uL PT (10.1-12.7) SECONDS INR (0.9-1.3) APTT (26.4-36.2) SECONDS VBG pH (7.33-7.43) VBG pCO2 (45-50) mmHg VBG pO2 (35-45) mmHg VBG HCO3 (23-28) mmol/L VBG Total CO2 (24-29) mmol/L VBG O2 Saturation (70-75) % VBG Base Excess (0-4) mmol/L Sodium (137-145) mmol/L Potassium (3.4-5.1) mmol/L Chloride (98-107) mmol/L Carbon Dioxide (22-32) mmol/L BUN (7-17) mg/dL Creatinine (0.52-1.04) mg/dL Estimated GFR (>60) mL/min BUN/Creatinine Ratio (6-22) Glucose (70-100) mg/dL Hemoglobin A1c (4.0-6.0) % Calcium (8.4-10.2) mg/dL Phosphorus 3.7 (2.5-4.5) mg/dL Magnesium 1.3 L (1.6-2.3) mg/dL Total Bilirubin (0.2-1.3) mg/dL AST (14-36) IU/L ALT (<35) IU/L Alkaline Phosphatase (38-126) U/L Total Creatine Kinase 119 (30-135) U/L CK-MB (CK-2) 4.36 H (<2.37) ng/mL CK-MB (CK-2) Rel Index 3.7 (1.5-5.0) % Troponin I 0.027 (0.01-0.034) ng/mL Total Protein (6.3-8.2) g/dL Albumin (3.5-5.0) g/dL Globulin (1.7-4.1) g/dL Albumin/Globulin Ratio (1.0-2.8) Lipase (23-300) U/L Serum , Qual Negative (Negative) Salicylates 1.8 (<20) mg/dL Acetaminophen 21 (10-30) ug/mL Ketones 0.13 (<0.27) mmol/L SARS-CoV-2 (PCR) (Negative) 02/28/21 02/28/21 02/28/21 Range/Units 18:37 20:19 21:03 WBC (4.5-11.0) X10^3/uL RBC (4.0-5.2) X10^6/uL Hgb (12.0-16.0) g/dL Hct (36-46) % MCV (80-100) fL MCH (26-34) PG MCHC (30-36) % RDW (11.6-14.8) % Plt Count (150-400) X10^3/uL Neut % (Auto) (50-75) % Lymph % (Auto) (25-40) % Yell % (Auto) (3-14) % Eos % (Auto) (2-4) % Baso % (Auto) (0-2) % Neut # (Auto) (0133-2025) /uL Lymph # (Auto) (8615-1818) /uL Yell # (Auto) (0-900) /uL Eos # (Auto) (0-450) /uL Baso # (Auto) (0-100) /uL PT (10.1-12.7) SECONDS INR (0.9-1.3) APTT (26.4-36.2) SECONDS VBG pH 7.54 H (7.33-7.43) VBG pCO2 28.7 L (45-50) mmHg VBG pO2 24 L (35-45) mmHg VBG HCO3 24 (23-28) mmol/L VBG Total CO2 25 (24-29) mmol/L VBG O2 Saturation 54 L (70-75) % VBG Base Excess 2.0 (0-4) mmol/L Sodium (137-145) mmol/L Potassium (3.4-5.1) mmol/L Chloride (98-107) mmol/L Carbon Dioxide (22-32) mmol/L BUN (7-17) mg/dL Creatinine (0.52-1.04) mg/dL Estimated GFR (>60) mL/min BUN/Creatinine Ratio (6-22) Glucose (70-100) mg/dL Hemoglobin A1c 9.1 H (4.0-6.0) % Calcium (8.4-10.2) mg/dL Phosphorus (2.5-4.5) mg/dL Magnesium (1.6-2.3) mg/dL Total Bilirubin (0.2-1.3) mg/dL AST (14-36) IU/L ALT (<35) IU/L Alkaline Phosphatase (38-126) U/L Total Creatine Kinase (30-135) U/L CK-MB (CK-2) (<2.37) ng/mL CK-MB (CK-2) Rel Index (1.5-5.0) % Troponin I (0.01-0.034) ng/mL Total Protein (6.3-8.2) g/dL Albumin (3.5-5.0) g/dL Globulin (1.7-4.1) g/dL Albumin/Globulin Ratio (1.0-2.8) Lipase (23-300) U/L Serum , Qual (Negative) Salicylates (<20) mg/dL Acetaminophen (10-30) ug/mL Ketones (<0.27) mmol/L SARS-CoV-2 (PCR) Negative (Negative) ECG Data Attestation: I personally reviewed and interpreted this ECG as follows: Prior ECG tracings: not available for review Interpretation: Sinus rhythm Ventricular rate 93 Normal axis Normal QRS QTC [address] T wave changes MDM Narrative Medical decision making narrative: Patient is actually fairly well appearing. At the time of my exam she was Having any abdominal tenderness although she was not having any nausea the time. States that her abdominal tenderness is cramping that occurs right before she vomits. She denies any travel. No recent antibiotics. She is hyponatremic and still hyponatremic evenWhen corrected for elevated blood sugar. She is not in DKA. She does have a leukocytosis. She has no chest pain or no shortness of breath. She did report that her last intake aspirin was approximately 7 hours prior to arrival here in the ER. She does have aspirin in her system but does not aspirin toxic. Will need a repeat in 4 hours. Given her electrolyte abnormalities patient does require admission to the hospital. Discussed case with VARINDER Butler the night hospitalist who will admit for further evaluation and treatment. Discussed the admission with the patient. She expressed understanding and agreement. Discharge Plan Departure Patient Disposition: Admitted As Inpatient Clinical Impression: Hyponatremia, Hyperglycemia, Nausea and vomiting Admit Date/Time: 02/28/21 21:33 Admit Provider: Loyda Butler
[2021-02-28] MEDS: SODIUM CHLORIDE 0.9% 1,000 ML 125 ML IV ×2 (19:54→22:10)
[2021-02-28 19:55] LABS: Acetaminophen 21 ug/mL (10-30); Creatine Kinase 119 U/L (30-135); Salicylate 1.8 mg/dL (<20)
[2021-02-28 19:59] LABS: Magnesium 1.3 mg/dL (1.6-2.3); Phosphorous 3.7 mg/dL (2.5-4.5)
[2021-02-28 20:06] LABS: Ketones (Beta-Hydroxybutyrate) 0.13 mmol/L (<0.27)
[2021-02-28 20:08] LABS: Troponin I 0.027 ng/mL (0.01-0.034)
[2021-02-28 20:10] LABS: CKMB % Relative Index 3.7 % (1.5-5.0); Creatine Kinase MB 4.36 ng/mL (<2.37)
[2021-02-28] MEDS: ONDANSETRON 4 MG/2 ML INJ IV (20:17)
[2021-02-28 20:25] LABS: Pregnancy Test Serum,Qual Negative (Negative)
[2021-02-28 21:08] LABS: HCO3 VBG 24 mmol/L (23-28); Oxygen Saturation VBG 54 % (70-75); PCO2 VBG 28.7 mmHg (45-50); PO2 VBG 24 mmHg (35-45); Total CO2 VBG 25 mmol/L (24-29); pH VBG 7.54 (7.33-7.43)
[2021-02-28 21:17] LABS: COVID19 - ADMIT (NP swab/PCR) Negative (Negative)
[2021-02-28 21:19] LABS: Hemoglobin A1C% w Est Avg Glu 9.1 % (4.0-6.0)
--- NOTE | 2021-02-28 21:40 | P.HP_ITS ---
History of Present Illness History of Present Illness Date Patient Seen: 02/28/21 Time Patient Seen: 21:29 Chief complaint: NAUSEA PUKING Narrative: Patient is a 50-year-old female Maria Teresa Villalobos, who presented to the ED with complaint of vomiting, headache and abdominal cramping pain. Patient has a history of insulin-dependent type 2 diabetes, had an NSTEMI with stent placement in March of 2020, coronary artery disease, hypertension, hyperlipidemia, and was admitted on 03/2020 for DKA. Patient stated that last night before bed she had a severe headache and she reports taking increasing dosages of aspirin for some period time, patient does note that she has a sustained history of headaches and this was no different her last dose of aspirin was at 12:00 p.m. yesterday when she woke up this morning the headache continued but was improved and the patient began vomiting she notes she has some mild abdominal pain and cramping with vomiting but resolves once the vomiting stops, patient reports that she has vomited approximately 4-6 times in the last 24 hours, the patient denies chest pain, hematemesis, shortness of breath, fever, body aches, chills. Patient denies any recent injury or trauma, illness, travel, changes in medication. Upon admit to the floor patient denies nausea at this time, or abdominal pain. She notes she does have a headache, patient states that she is not short of breath though she demonstrates using accessory muscles in work of breathing patient simply states ?that when I take a deep breath it makes my throat sore. Patient denies cough, fever, body aches, chills, blood in urine or stool, skin wounds, abnormal bruising or bleeding. Patient's PCP is Constanza watts at [facility]. Patient's vitals upon admit temp 97.3?, BP 121/59, HR 94, RR 21, O2 saturation 98% on room air. Patient's labs WBC 27.8, Na 115 (corrected sodium 119), Cl 75, K+ 3.1, CR 1.14, glucose 290, EGFR 50.9, ketones 0.13, anion gap of 18, creatinine clearance calculated 71 mL/min, A1c 9.1, mg 1.3, CK-MB 4.36 (last 03/2020 NSTEMI 6.34), troponin 0.027, salicylate 1.8, acetaminophen 21. VBG: PH 7.54, pCO2 28.7, PO2 24, O2 saturation 54%. EKG: Normal sinus rhythm without ischemic, ST or T-wave changes. Patient being admitted for FARHAT, acute dehydrat ion, hyponatremia, hypokalemia, hypomagnesium, and hyperglycemia. Patient History Medical History (Updated 03/01/21 @ 00:26 by NORMA Zacarias) Anxiety Chronic low back pain Coronary artery disease Diabetes Diabetic ketoacidosis GERD (gastroesophageal reflux disease) History of non-ST elevation myocardial infarction (NSTEMI) History of ovarian cancer in adulthood Hyperlipidemia Hypertension Surgical History (Updated 03/01/21 @ 00:26 by NORMA Zacarias) History of coronary artery stent placement History of hysterectomy for cancer Family & Social History Family History (Updated 03/01/21 @ 00:29 by NORMA Zacarias) Father Congestive heart failure Hx of CABG Mother Diabetes mellitus Congestive heart failure History of sepsis due to sepsis Social History: household members patient lives with her spouse and adult son, re tired disabled. Safety & Behavioral: Feels Safe in Current Yes Environment Been Physically Hurt or No Threatened By a Person Tobacco & Substance use: Smoking Status quit 15 years ago alcohol intake never alcohol intake frequency holiday/special occasion Substance Use Type does not use Meds Home Medications and Allergies Home Medications Medication Instructions Recorded Confirmed Type Disabled Parking Permit 1 stefani MISCELLANEOUS DIRECTED 08/19/18 02/28/21 History [place] 1 pkg MISCELLANEOUS BID 08/19/18 02/28/21 History metoprolol succinate 25 mg 25 mg PO BID #180 tab 10/08/18 02/28/21 Rx tablet,extended release 24 hr Levemir U-100 Insulin 35 unit SUBCUT SEE INSTRUCTIONS 03/23/19 02/28/21 History cetirizine 10 mg PO DAILY 03/23/19 02/28/21 History dulaglutide [Trulicity] 1.5 ml SUBCUT QWEEK 03/23/19 02/28/21 History fenofibrate 160 mg PO DAILY 03/23/19 02/28/21 History fluoxetine 60 mg PO DAILY 03/23/19 02/28/21 History insulin aspart U-100 [Novolog 1 dose SUBCUT BID 03/23/19 02/28/21 History Flexpen U-100 Insulin] metoclopramide HCl 10 mg PO ACHS 03/23/19 02/28/21 History nortriptyline 50 mg PO BEDTIME 03/23/19 02/28/21 History atorvastatin 80 mg PO DAILY 08/07/19 02/28/21 History empagliflozin [Jardiance] 25 mg PO DAILY 08/07/19 02/28/21 History omeprazole 20 mg PO BID 08/07/19 02/28/21 History glimepiride 4 mg tablet 8 mg PO QAM #180 tab 03/07/20 02/28/21 Rx albuterol sulfate [Ventolin HFA] 2 puff INHALATION PRN PRN 03/13/20 02/28/21 History gabapentin 600 mg PO TID 03/13/20 02/28/21 History hydrochlorothiazide 12.5 mg PO DAILY 03/13/20 02/28/21 History losartan 50 mg PO DAILY 03/13/20 02/28/21 History oxycodone-acetaminophen 1 tab PO TID PRN 03/13/20 02/28/21 History evolocumab [Repatha SureClick] 140 mg SUBCUT Q2W 02/28/21 02/28/21 History insulin glargine [Lantus Solostar 30 unit SUBCUT BID 02/28/21 02/28/21 History U-100 Insulin] Allergies Allergy/AdvReac Type Severity Reaction Status Date / Time Sulfa (Sulfonamide Allergy Severe hives Verified 02/28/21 18:30 Antibiotics) [SULFA (SULFONAMIDE ANTIBIOTICS)] Review of Systems Review of Systems ROS: Yes All systems reviewed with the patient and are negative except as otherwise documented Constitutional Constitutional: Reports headache(s) ENT Ears, Nose, Mouth, and Throat: Yes headache(s) and Yes sore throat (with deep breathing ) Respiratory Respiratory: Reports pain on inspiration Neurologic Neurologic: Reports headache(s) Exam Vital Signs (past 8 hours): - 02/28/21 18:30 02/28/21 19:31 02/28/21 20:00 Temperature 97.3 F L Pulse Rate 103 H 94 H Respiratory Rate 15 21 Blood Pressure 122/70 124/76 121/59 L Pulse Oximetry 97 94 98 Oxygen Delivery Method Room Air Narrative Exam Narrative: General: Patient is a well-developed, well-nourished female who denies shortness of breath though physically demonstrates work of breathing use accessory muscles to breathe, respiratory rate of 20, O2 saturation 96% on room air. HEENT: Normocephalic, atraumatic, extraocular muscles intact, oral pharynx is clear and mucous membranes are dry, pursed lips. Neck is supple and symmetric, trachea is midline, no adenopathy, no thyroid enlargement, nontender, no masses palpated. Negative for JVD Chest: Normal AP diameter and contour without kyphoscoliosis, no nasal flaring, retractions, positive tachypneic labored, using accessory muscles. Lungs: Auscultation of all lung astorga are clear without adventitious sounds, wheezes, rhonchi, or rales. Cardio: S1 & S2 with regular rate and rhythm +3 whooshing mumur, without rubs, or gallops, no carotid bruit, no cardiac pulsations present. Abdomen: Soft nontender, negative for organomegaly, or masses. Bowel sounds are present in all 4 quadrants without guarding or rebound, no CVA tenderness. Musculoskeletal: Muscle strength and tone are equal within normal limits, no deformity, crepitus, effusions, cyanosis, clubbing or edema present. Full range of motion intact radial and pedal pulses are normal. Skin: Warm dry and intact without rashes, ulcerations or petechiae. Neuro: Alert and orientated x3, strength is +5/5 in all extremities, sensation to touch intact, no gross deficits noted of cranial nerves. Psych: Patient has a well-kept appearance, appropriate affect, mental status attitude thought context and judgment are appropriate for age. Objective Labs Result Diagrams: 02/28/21 18:37 02/28/21 22:43 Labs: Laboratory Results - last 24 hr 02/28/21 02/28/21 02/28/21 18:37 18:37 18:37 WBC 27.8 H RBC 4.67 Hgb 12.8 Hct 36.8 MCV 78.7 L MCH 27.4 MCHC 34.8 RDW 15.8 H Plt Count 320 Neut % (Auto) 84.3 H Lymph % (Auto) 10.0 L [place] % (Auto) 5.1 Eos % (Auto) 0.2 L Baso % (Auto) 0.4 Neut # (Auto) 52342 H Lymph # (Auto) 2800 [place] # (Auto) 1400 H Eos # (Auto) 100 Baso # (Auto) 100 PT 12.5 INR 1.1 APTT 30 D VBG pH VBG pCO2 VBG pO2 VBG HCO3 VBG Total CO2 VBG O2 Saturation VBG Base Excess Sodium 115 L* Potassium 3.1 L Chloride 75 L* Carbon Dioxide 22 BUN 13 Creatinine 1.14 H Estimated GFR 50.9 L BUN/Creatinine Ratio 11.4 Glucose 290 H Hemoglobin A1c Calcium 9.9 Phosphorus Magnesium Total Bilirubin 0.4 AST 27 ALT 21 Alkaline Phosphatase 115 Total Creatine Kinase CK-MB (CK-2) CK-MB (CK-2) Rel Index Troponin I Total Protein 7.7 Albumin 4.7 Globulin 3.0 Albumin/Globulin Ratio 1.6 Lipase 140 Serum , Qual Salicylates Acetaminophen Ketones SARS-CoV-2 (PCR) 02/28/21 02/28/21 02/28/21 18:37 18:37 18:37 WBC RBC Hgb Hct MCV MCH MCHC RDW Plt Count Neut % (Auto) Lymph % (Auto) [place] % (Auto) Eos % (Auto) Baso % (Auto) Neut # (Auto) Lymph # (Auto) [place] # (Auto) Eos # (Auto) Baso # (Auto) PT INR APTT VBG pH VBG pCO2 VBG pO2 VBG HCO3 VBG Total CO2 VBG O2 Saturation VBG Base Excess Sodium Potassium Chloride Carbon Dioxide BUN Creatinine Estimated GFR BUN/Creatinine Ratio Glucose Hemoglobin A1c Calcium Phosphorus 3.7 Magnesium 1.3 L Total Bilirubin AST ALT Alkaline Phosphatase Total Creatine Kinase 119 CK-MB (CK-2) 4.36 H CK-MB (CK-2) Rel Index 3.7 Troponin I 0.027 Total Protein Albumin Globulin Albumin/Globulin Ratio Lipase Serum , Qual Negative Salicylates 1.8 Acetaminophen 21 Ketones 0.13 SARS-CoV-2 (PCR) 02/28/21 02/28/21 02/28/21 18:37 20:19 21:03 WBC RBC Hgb Hct MCV MCH MCHC RDW Plt Count Neut % (Auto) Lymph % (Auto) [place] % (Auto) Eos % (Auto) Baso % (Auto) Neut # (Auto) Lymph # (Auto) [place] # (Auto) Eos # (Auto) Baso # (Auto) PT INR APTT VBG pH 7.54 H VBG pCO2 28.7 L VBG pO2 24 L VBG HCO3 24 VBG Total CO2 25 VBG O2 Saturation 54 L VBG Base Excess 2.0 Sodium Potassium Chloride Carbon Dioxide BUN Creatinine Estimated GFR BUN/Creatinine Ratio Glucose Hemoglobin A1c 9.1 H Calcium Phosphorus Magnesium Total Bilirubin AST ALT Alkaline Phosphatase Total Creatine Kinase CK-MB (CK-2) CK-MB (CK-2) Rel Index Troponin I Total Protein Albumin Globulin Albumin/Globulin Ratio Lipase Serum , Qual Salicylates Acetaminophen Ketones SARS-CoV-2 (PCR) Negative Assessment & Plan Assessment & Plan narrative: This patient requires acute care inpatient hospital management for acute FARHAT with hypocapnia a respiratory alkalosis as a result of acute dehydration resulting in hyponatremia, hypokalemia, and hypomagnesium, after failing outpatient management. The patient is at much higher risk for medical and surgical complications because of a history of insulin-dependent type 2 diabetes, had an NSTEMI with stent placement in March of 2020, coronary artery disease, hypertension, hyperlipidemia. These factors increase the difficulty and complexity of medical and surgical interventions and increases the chances of poor outcomes such as morbidity and mortality, as well as complications such as DKA, cardiac arrest, and respiratory distress. 1. Acute FARHAT with hypocapnia respiratory alkalosis as a result of acute dehydration resulting in hypertonic hyponatremia, hypokalemia, hyperglycemia, and hypomagnesium, in the setting of insulin-dependent type 2 diabetes coronary artery disease, and hypertension acute, present on admission. Likely due to increased ingestion of aspirin and/OR HCTZ resulting in vomiting that has led to dehydration, which precipitated FARHAT in the setting of chronic uncontrolled long- term insulin-dependent type 2 diabetes. I suspect HHS, though unable to determine serum osmolality/Urine osmolality as lab test has to be sent out of [facility] to be process. Should be noted that the patient had no signs or symptoms of encephalopathy. Suspect SIRS due to a non-infectious cause related to NSAID ingestion and FARHAT also contribute to by thiazide diuretic therapy. The patient appears to have a narrow therapeutic threshold for electrolyte imbalance/endocrine stability. And that the patient is at higher risk of hypovolemia from vomiting, diarrhea or illness, and that her diabetes is more consistent with that of a 1.5 brittle diabetic presentation. In-depth discussion and patient education was provided regarding her health risks related to her uncontrolled diabetes. -R/o hypertonic or isotonic hyponatremia, pseudohyponatremia due to hyperlipidemia, SIADH, hypothyroidism, secondary adrenal insufficiency, acquired reset Osmostat of chronic illness, thiazide-induced hyponatremia. Patient's vitals upon admit temp 97.3?, BP 121/59, HR 94, RR 21 (tachypneic), O2 saturation 98% on room air. Patient's labs WBC 27.8, Na 115, Cl 75, K+ 3.1, CR 1.14, glucose 290, EGFR 50.9, ketones 0.13, anion gap of 18, creatinine clearance calculated 71 mL/min, A1c 9.1, mg 1.3, CK-MB 4.36 (last 03/2020 NSTEMI 6.34), troponin 0.027, salicylate 1.8, acetaminophen 21. VBG: PH 7.54, pCO2 28.7, PO2 24, O2 saturation 54%, FI02: 20. EKG: Normal sinus rhythm without ischemic, ST or T-wave changes. Patient being admitted for FARHAT, acute dehydr ation, hyponatremia, hypokalemia, hypomagnesium, and hyperglycemia. -ordered 2 g of magnesium, 40 mEq of potassium. 2229 Labs: Improved with fluid hydration: Sodium and chloride remained unchanged, magnesium improved from 1.3 to 3.0, potassium improved 3.1 to 3.3, glucose increased to 290 to 308, EGFR improved 50.9 to 55.9, troponin #2. Elevated 0.031, procalcitonin 11.0, lactate 3.3, A1c 9.1, UA: 1+ protein,1+ glucose, negative ketones, WBC 10-30 cultured. Salicylate level decreased to 1.0, and acetaminophen unchanged at 21. Anion Gap decreased 18 to 16, corrected sodium 119.2. Should be noted that patient has a normal creatinine baseline approximately 0.58, and normal EGFR greater than 60 last documented 03/2020. Patient has no history of CKD. -monitor patient for DKA/HHS: goal to correct estimated deficits within 24 hours monitor for signs and symptoms of cerebral edema. -ordered serum osmolality, urine osmolality, urine sodium, Lipids, serum uric acid, urea nitrogen to determine cause of hyponatremia -patient to be monitored on tele medicine, vital signs/BS QHr until patient becomes hemodynamically stable then of vital sign checks may increase to q.4 hours, blood sugar checks Q 1 hour once patient demonstrates blood glucose levels dropping by approximately 50-75mg per hour or below 150, BNP q.4 hours, intake and output monitored Q shift, weight measure daily, Diet: NPO-may attempt clear liquids overnight, if vomiting presents return to NPO, once blood sugars are less than 150 anion gap is closed patient may progress to carbohydrate diet IV Fluids: Normal saline at 150 cc/hour. calculated corrected sodium: 119.3- monitor for iatrogenic fluid overload -use medium dose sliding scale to control blood sugars, provide patient with evening Lantus dose. -Goal map of 65, in the setting of sustained hypotension initiate with IV fluid bolus, if not improving initiate norepinephrine 5 mcg/min drip to titrate to a map>65 -if patient IV access is compromised consider ordering PICC line -once blood sugar is below 250 change IV fluids to D51/2NS @150 cc/Hr -K+3.1 upon admit: 40 mEq Krider ordered. -Mag 1.3 upon admit: 2 g Mag rider ordered -BMP q.4 hours checking for closing of the anion gap and potassium also monitor phosphorus and bicarb and assess for acute pancreatitis, cardiac arrhythmias, respiratory muscle weakness and hyperosmolalitye and a anion gap goal is less than 18. -labs ordered in a.m. ketones, lactate, phosphorus, Mag, repeat ABG, TSH, Cortisol, A1c, amylase, lipase, osmolality, salicylate -monitor for phosphate depletion (hypophosphatemia) in levels < 1 mg/dL or 0.32mmol -monitor for cardiac dysfunction, hemolytic anemia, and or respiratory depression. -Consider capnography order is sustained respiratory distress -respiratory consult- in ED -recommend patient be referred to diabetes counseling -consults ordered physical therapy, occupational therapy , for discharge. -prevention vaccine- recommend FLU 2. Insulin-dependent type 2 diabetes, acute diabetic complications on chronic, present on admission, uncontrolled -hyperglycemia BS #1: 290, BS #2 (2299): 308, serum osmolality: Pending (lab past be sent out),VBG Ph 7.54, pCo2 28.7, creatinine #1. 1.14, repeat #2 1.05, eGFR#1: 50.9, repeat#2 55.9, A1c: 9.1 -See above 3. Essential hypertension as a result of coronary artery disease/hyperlipidemia with history of NSTEMI with stent placements 03/2020 associated with IDDM, chronic, not present on admission - Continue patients atorvastatin, fenofibrate, losartan, and metoprolol. Will hold patient's HCTZ due to FARHAT. 4. Anxiety, chronic, not present on admission -patient denies anxiety or suicidal ideation -continue patient's temazepam, nortriptyline 5. Chronic low back pain, acute on chronic, present on admission -continue patient's gabapentin, and oxycodone-acetaminophen 6. GERD, chronic, not present on admission, stability unknown -holding patient's omeprazole, providing 20 mg Protonix b.i.d. Code status:Full Code Surrogate/plan of care: Spouse Garett THORNE PCR:Negative VTE prophylaxis:Lovenox 40mg & SCDS Scores GCS Fabiola coma scale eye opening: Spontaneous Fab[place]ola coma scale verbal response: Orientated [place] coma scale motor response: Obey commands [place] coma scale total score: 15 CHADS-VASc Congestive heart failure: no Hypertension: yes Age 75 years or older: no Diabetes mellitus: yes Stroke, TIA, or TE: no Vascular disease: yes Age 65 to 74 years: no Sex category (female): Female CHADS-VASc Score: 4 SOFA PaO2/FIO2: >=400 mmHg Platelets: >= 150 Bilirubin: < 1.2 mg/dL Hypotension: MAP >= 70 mmHg Fabiola Coma Scale: 15 Renal: < 1.2 mg/dL SOFA Score: 0
[2021-02-28] MEDS: MAGNESIUM SULFATE 2 GM/50 ML PIGGYBACK IV (22:13)
[2021-02-28] MEDS: PANTOPRAZOLE 20 MG TABLET PO (22:13)
[2021-02-28] MEDS: INSULIN ASPART 100 UNIT/ML INSULN PEN SUBCUT ×2 (22:18→23:57)
[2021-02-28] MEDS: INSULIN GLARGINE 100 UNIT/ML 3ML PEN 30 UNIT SUBCUT (22:26)
[2021-02-28] MEDS: NORTRIPTYLINE HCL 25 MG CAPSULE 50 MG PO (22:32)
[2021-02-28] MEDS: GABAPENTIN 600 MG TABLET PO (22:32)
[2021-02-28 22:54] LABS: RBC Urine None Seen (0-5/HPF)
[2021-02-28] MEDS: POTASSIUM CHLORIDE 40 MEQ in SODIUM CHLORIDE 0.9% 500 ML 130 ML IV (22:54)
[2021-02-28 22:56] LABS: Appearance Urine UA CLEAR; Bilirubin Urine UA NEGATIVE (NEGATIVE); Color Urine UA YELLOW; Glucose Urine UA 1+ g/dL (Negative); Ketones Urine UA NEGATIVE (NEGATIVE); Leukocyte Esterase Urine UA 1+ (NEGATIVE); Nitrite Urine UA NEGATIVE (Negative); Occult Blood Urine UA TRACE-INTACT (Negative); Protein Urine UA 1+ (Negative); Urobilinogen Urine UA 0.2 E.U./dL (0.2)
[2021-02-28 23:11] LABS: Bacteria Urine Few (2-10); Culture Indicated Urine Specimen Cultured; Squamous Epithelial Cell Urine 1-5 /HPF (0-5/HPF); WBC Urine 10-30/HPF (0-5/HPF)
--- NOTE | 2021-02-28 23:11 | PC.NURSE ---
Patient admitted from ER by hospitalists at 2125. A/Ox4, RA, able to ambulate around room. HR slightly elevated, patient has a known heart murmur and hx of CAD with [place]/stent last year. Tele shows ST. Patient states she vomited twice this morning and it appeared to be her chicken and watermelon from dinner the night before. Patient has NS @ 125ml running; mag rider is finished and K rider is currently running. Patient is oriented to room and call light system.
[2021-02-28 23:16] LABS: BUN Creatinine Ratio 14.3 (6-22); Blood Urea Nitrogen 15 mg/dL (7-17); Calcium 9.6 mg/dL (8.4-10.2); Carbon Dioxide 24 mmol/L (22-32); Estimated Glomerular Filt Rate 55.9 mL/min (>60); Glucose 308 mg/dL (70-100); HEMOLYSIS < 15 (0-50); Lactate (Lactic Acid) 3.3 mmol/L (0.7-2.1); Potassium 3.3 mmol/L (3.4-5.1); Salicylate < 1.0 mg/dL (<20)
[2021-02-28 23:18] LABS: Ketones (Beta-Hydroxybutyrate) 0.12 mmol/L (<0.27)
[2021-02-28 23:19] LABS: Chloride 75 mmol/L (98-107); Sodium 115 mmol/L (137-145)
[2021-02-28 23:29] LABS: Troponin I 0.031 ng/mL (0.01-0.034)
[2021-02-28] MEDS: OXYCODONE/ACETAMINOPHEN 5/325 TABLET 1 TAB PO (23:54)
[2021-02-28] MEDS: MELATONIN 3 MG TABLET 9 MG PO (23:54)
[2021-03-01] VITALS (15 sets, daily range): BP systolic 94–145; BP diastolic 53–74; PULSE 70–93; RESP 15–20; TEMP 36.3–36.7; O2SAT 95–99
[2021-03-01 00:55] LABS: Reflexed Lactate in 2 Hours Y
[2021-03-01] MEDS: INSULIN ASPART 100 UNIT/ML INSULN PEN SUBCUT ×6 (01:12→17:19)
[2021-03-01 02:38] LABS: Sodium Urine Random 15 mmol/L (30-90)
[2021-03-01] MEDS: SODIUM CHLORIDE 0.9% 1,000 ML 150 ML IV ×3 (02:56→21:22)
[2021-03-01] MEDS: ONDANSETRON 4 MG/2 ML INJ IV ×2 (03:34→08:51)
[2021-03-01 05:32] LABS: PCO2 VBG 50.5 mmHg (45-50); PO2 VBG 22 mmHg (35-45); pH VBG 7.37 (7.33-7.43)
[2021-03-01 05:33] LABS: HCO3 VBG 29 mmol/L (23-28); Oxygen Saturation VBG 35 % (70-75); Total CO2 VBG 31 mmol/L (24-29)
[2021-03-01 05:45] LABS: INR 1.2 (0.9-1.3); Prothrombin Time 13.4 SECONDS (10.1-12.7)
[2021-03-01 05:47] LABS: Add Manual Diff / Slide Review NO; Basophils Absolute Auto 100 /uL (0-100); Basophils Percent Auto 0.6 % (0-2); Eosinophils Absolute Auto 100 /uL (0-450); Eosinophils Percent Auto 0.6 % (2-4); Hematocrit 30.6 % (36-46); Hemoglobin 10.6 g/dL (12.0-16.0); Lymphocytes Absolute Auto 2000 /uL (1100-4500); Lymphocytes Percent Auto 16.4 % (25-40); Mean Corpuscular HGB Conc 34.5 % (30-36); Mean Corpuscular Hemoglobin 27.5 PG (26-34); Mean Corpuscular Volume 79.6 fL (80-100); Monocytes Absolute Auto 700 /uL (0-900); Monocytes Percent Auto 6.2 % (3-14); Neutrophils Absolute Auto 9100 /uL (1500-7000); Neutrophils Percent Auto 76.2 % (50-75); Platelet Count 188 X10^3/uL (150-400); Red Blood Cell Count 3.84 X10^6/uL (4.0-5.2); Red Cell Distribution Width 15.8 % (11.6-14.8); White Blood Cell Count 11.9 X10^3/uL (4.5-11.0)
[2021-03-01 05:50] LABS: Uric Acid 4.2 mg/dL (2.5-6.2)
[2021-03-01 05:51] LABS: Lactate 2HR (Lactic Acid Rflx) 1.3 mmol/L (0.7-2.1); Phosphorous 2.9 mg/dL (2.5-4.5)
[2021-03-01 05:52] LABS: Blood Urea Nitrogen 12 mg/dL (7-17); Calcium 9.1 mg/dL (8.4-10.2); Carbon Dioxide 29 mmol/L (22-32); Chloride 81 mmol/L (98-107); Estimated Glomerular Filt Rate > 60.0 mL/min (>60); Glucose 140 mg/dL (70-100); HEMOLYSIS < 15 (0-50); Magnesium 2.1 mg/dL (1.6-2.3); Potassium 3.2 mmol/L (3.4-5.1)
[2021-03-01 05:55] LABS: Sodium 118 mmol/L (137-145)
[2021-03-01 06:03] LABS: Troponin I 0.031 ng/mL (0.01-0.034)
[2021-03-01 06:11] LABS: Cholesterol 229 mg/dL (140-199); HDL Cholesterol 47 mg/dL (40-60); LDL Cholesterol Calculated 159 mg/dL (<100); Triglycerides 115 mg/dL (35-150)
[2021-03-01 06:43] LABS: TSH w/ Reflex to FT4 0.31 uIU/mL (0.47-4.68)
[2021-03-01 06:45] LABS: Cortisol AM (Before 10AM) 6.15 ug/dL (4.46-22.7)
--- NOTE | 2021-03-01 06:47 | PC.NURSE ---
Automotive Parts Manager Note-Patient is A/Ox4, sometimes forgetful. CBGs Q1h, started at 259 decreased to 149 by am, s/s insulin coverage given per algorithm. NS @ 150ml/hr, 40meq K+ rider infused. Nausea resolved with IV Zofran, patient has severe thirst, has taken in 2000ml water without N/V. Na+ this am is 118, reported to FITTER ARMAMENT with other Chem lab values. Headache at midnight resolved with 1 Percocet.
[2021-03-01 07:12] LABS: Free T4, Direct Thyroxine 1.24 ng/dL (0.78-2.19)
[2021-03-01] MEDS: POTASSIUM CHLORIDE 40 MEQ in SODIUM CHLORIDE 0.9% 500 ML 130 ML IV (08:02)
[2021-03-01] MEDS: ATORVASTATIN 20 MG TABLET 80 MG PO (08:48)
[2021-03-01] MEDS: METOPROLOL ER 25 MG TABLET PO ×2 (08:48→21:10)
[2021-03-01] MEDS: LOSARTAN 50 MG TABLET PO (08:48)
[2021-03-01] MEDS: ENOXAPARIN 40 MG/0.4 ML SYRINGE SUBCUT (08:48)
[2021-03-01] MEDS: PANTOPRAZOLE 20 MG TABLET PO ×2 (08:49→21:10)
[2021-03-01] MEDS: OXYCODONE/ACETAMINOPHEN 5/325 TABLET 1 TAB PO (08:49)
[2021-03-01] MEDS: FENOFIBRATE 160 MG TABLET PO (08:50)
[2021-03-01] MEDS: OXYCODONE IR 5 MG TABLET PO (08:50)
[2021-03-01] MEDS: GABAPENTIN 600 MG TABLET PO ×3 (08:50→21:10)
[2021-03-01] MEDS: FLUoxetine 20 MG CAPSULE 60 MG PO (08:50)
[2021-03-01] MEDS: INSULIN GLARGINE 100 UNIT/ML 3ML PEN 30 UNIT SUBCUT ×2 (08:51→21:13)
--- NOTE | 2021-03-01 09:00 | DI.RAD.S_ITS ---
PROCEDURE: XR CHEST 2V INDICATIONS: Acute respiratory alkalosis TECHNIQUE: 2 views of the chest were acquired. COMPARISON: [facility], CR, XR CHEST 1V, 03/12/2020, 11:35. [facility], CR, XR CHEST 1V, 09/30/2019, 14:29. FINDINGS: Surgical changes and devices: None. Lungs and pleura: Patchy airspace opacity bilaterally. This is most pronounced in the lower lung [place]org[place]. No pleural effusions or pneumothorax. Mediastinum: Mediastinal contours are normal. Heart size is normal. Bones and chest wall: No suspicious bony abnormalities. Soft tissues appear unremarkable. IMPRESSION: Patchy airspace opacity bilaterally. Suspect infectious/inflammatory etiology. COVID-19 could have this appearance. Dictated by: James Hodgson M.D. on 03/01/2021 at 9:32 Approved by: James Hodgson M.D. on 03/01/2021 at 9:35
[2021-03-01] MEDS: INFLUENZA VACCINE 0.5 ML SYRINGE IM (09:19)
--- NOTE | 2021-03-01 12:05 | CM.IDA ---
Initial DCP Assessment Note Pt is a 50 yo female, resident of [place], admitted inpatient for complaint of vomiting, headache and abdominal cramping pain, found to have acute FARHAT . PMH includes insulin-dependent type 2 diabetes, an NSTEMI with stent placement in March of 2020, coronary artery disease, hypertension, hyperlipidemia, and was admitted on 03/2020 for DKA. PCP: Kary Simon listed as PCP Payer: MCR/DESTINEE Met w/patient and spouse at bedside, introduced role. Patient, spouse and 20 yo son are living at [facility] and are seeking more stable housing. Spouse is seeking work and son is assisting w/household income. Patient has food stamps, explains she gets around the [facility] room indp w/assist, as needed, from DME like walker and grab bars placed in the BR. Patient and spouse deny needs from this DISCOVERY MANAGER, contact number left in case DC needs or concerns arise before DC. RN Jane expects DC w/in another 24-48, likely no needs from DISCOVERY MANAGER team ANKUR Mcgrath Discharge Planning/Care Management CM Discharge Assessment Start: 03/01/21 12:03 Freq: Status: Active Protocol: Document 03/01/21 12:03 YUDITH (Rec: 03/01/21 12:05 YUDITH [id number]) Discharge Planning Assessment Assigned Hot [employer] Gal[employer]izer ANKUR Garcia DPOA/Assigned Designee Name Garett Izaguirre, spouse Contact Information [phone] Advance Directives? No History Provided By Patient,Significant Other, Medical Record Comment [facility] Household Members spouse,family Type of transporation used prior to Relies on Others admit Independent with ADL's Yes Is patient alert and oriented? Yes Barriers to Discharge No Discharge Plan Home Transportation Arrangement Family Referrals Initiated None needed Additional Comment At this time Review Status In Process
[2021-03-01 12:07] LABS: BUN Creatinine Ratio 16.1 (6-22); Blood Urea Nitrogen 10 mg/dL (7-17); Calcium 8.8 mg/dL (8.4-10.2); Carbon Dioxide 27 mmol/L (22-32); Chloride 83 mmol/L (98-107); Estimated Glomerular Filt Rate > 60.0 mL/min (>60); Glucose 163 mg/dL (70-100); HEMOLYSIS < 15 (0-50); Potassium 3.8 mmol/L (3.4-5.1)
[2021-03-01 12:09] LABS: Sodium 117 mmol/L (137-145)
[2021-03-01] MEDS: METOCLOPRAMIDE HCL 10 MG TABLET PO ×3 (12:59→21:10)
--- NOTE | 2021-03-01 13:09 | DI.CT.S_ITS ---
PROCEDURE: CT CHEST WO CON INDICATIONS: abnormal chest xray TECHNIQUE: Noncontrast 5 mm thick sections acquired from the pulmonary apices to the posterior costophrenic angles. 1 mm lung window, 5 mm thick coronal and sagittal and 7 mm axial MIP reformats were then acquired. For radiation dose reduction, the following was used: automated exposure control, adjustment of mA and/or kV according to patient size. COMPARISON: [facility], CT, CT KIDNEY URETER BLADDER (KUB), 08/19/2018, 10:03, XR CHEST 2V, 03/01/2021, 9:12. FINDINGS: Image quality: Excellent. Lungs and pleura: Extensive patchy ground-glass opacity in the left lung with a geographic appearance. Findings are also present in the right lung, to a lesser extent, but involving a significant portion of the right middle lobe, anterior basal segment of the right lower lobe, and posterior basal segment of the right lower lobe. There is also a anterior right upper lobe involved. Findings may potentially represent viral pneumonia. No pleural effusions or pneumothorax. Central and peripheral airways are patent and normal in caliber. Mediastinum: Heart size is normal. No pericardial effusion. Question LAD stent versus dense calcifications. No mediastinal adenopathy by size criteria. Thoracic aorta and central pulmonary arteries are normal in size. Esophagus is normal in caliber. No hiatal hernia. Bones and chest wall: No suspicious bony lesions. No vertebral body compression fractures. No axillary or supraclavicular adenopathy by size criteria. Thyroid gland contains multiple benign-appearing calcifications. Abdomen: Visualized upper abdominal solid organs and bowel loops appear normal in the absence of contrast. IMPRESSION: 1. Extensive patchy bilateral ground-glass opacities, left greater than right, have an appearance consistent with viral pneumonia. Consider possible Covid 19 pneumonia. 2. Coronary artery disease. Dictated by: Sam Aldana M.D. on 03/01/2021 at 13:43 Approved by: Sam Aldana M.D. on 03/01/2021 at 13:48
--- NOTE | 2021-03-01 13:13 | DI.CT.S_ITS ---
PROCEDURE: CT HEAD/BRAIN WO CON INDICATIONS: malignancy? TECHNIQUE: Noncontrast 4.5 mm thick angled axial sections acquired from the foramen magnum to the vertex, with coronal and sagittal reformats. For radiation dose reduction, the following was used: automated exposure control, adjustment of mA and/or kV according to patient size. COMPARISON: [facility], CT, CT HEAD/BRAIN WO CON, 03/12/2020, 12:19. FINDINGS: Image quality: Excellent. CSF spaces: Basal cisterns are patent. No extra-axial fluid collections. Ventricles are normal in size and shape. Brain: No midline shift. No intracranial masses or hemorrhage. Man-white matter interface is normal. Skull and face: Calvarium and visualized facial bones are intact, without suspicious lesions. Sinuses: Visualized sinuses and mastoids are clear. IMPRESSION: No evidence acute stroke, hemorrhage, or mass. Dictated by: Sam Aldana M.D. on 03/01/2021 at 13:41 Approved by: Sam Aldana M.D. on 03/01/2021 at 13:43
--- NOTE | 2021-03-01 13:18 | PM.PN.1 ---
Subjective Subjective Date Patient Seen: 03/01/21 Time Patient Seen: 08:18 Interval history: Today she feels much better. Her nausea and vomiting are better. She feels quite thirsty and dehydrated. She has no confusion. She has no cough, shortness of breath, chest pain, fevers, or abdominal pain. Overnight she was started on IVF for her hyponatremia with mild improvement from 115 to 118. Exam Vital Signs (past 8 hours): - 03/01/21 05:42 03/01/21 06:00 03/01/21 08:00 Temperature 97.5 F L 97.6 F Pulse Rate 83 82 Respiratory Rate 20 17 Blood Pressure 145/73 H 133/74 Pulse Oximetry 97 99 03/01/21 09:39 03/01/21 09:43 03/01/21 12:00 Temperature 98.0 F Pulse Rate 93 H 73 Respiratory Rate 15 Blood Pressure 108/57 L Pulse Oximetry 95 97 03/01/21 13:05 Temperature Pulse Rate Respiratory Rate Blood Pressure Pulse Oximetry 97 Oxygen Delivery Method Room Air Oxygen Flow Rate 0 Narrative Exam Narrative: General: No acute distress HEENT: PERRL, mucous membranes are dry, Negative for JVD Lungs: no wheezes, rhonchi, or rales. Cardio: regular rate and rhythm,positive mumur, no rubs, or gallops, no carotid bruit, no cardiac pulsations present. Abdomen: Soft nontender, no organomegaly, or masses. Bowel sounds are present in all 4 quadrants without guarding or rebound, no CVA tenderness. Musculoskeletal: Muscle strength are equal within normal limits, fulll range of motion intact Skin: Warm dry and intact without rashes. Neuro: Alert and orientated x3, strength is +5/5 in all extremities, sensation to touch intact, no deficits noted of cranial nerves. Psych: cooperative, and pleasant mood. Objective Labs Result Diagrams: 03/01/21 05:16 03/01/21 11:03 Labs: Laboratory Results - last 24 hr 02/28/21 02/28/21 02/28/21 18:37 18:37 18:37 WBC 27.8 H RBC 4.67 Hgb 12.8 Hct 36.8 MCV 78.7 L MCH 27.4 MCHC 34.8 RDW 15.8 H Plt Count 320 Neut % (Auto) 84.3 H Lymph % (Auto) 10.0 L Mason % (Auto) 5.1 Eos % (Auto) 0.2 L Baso % (Auto) 0.4 Neut # (Auto) 28196 H Lymph # (Auto) 2800 Mason # (Auto) 1400 H Eos # (Auto) 100 Baso # (Auto) 100 PT 12.5 INR 1.1 APTT 30 D VBG pH VBG pCO2 VBG pO2 VBG HCO3 VBG Total CO2 VBG O2 Saturation VBG Base Excess Sodium 115 L* Potassium 3.1 L Chloride 75 L* Carbon Dioxide 22 BUN 13 Creatinine 1.14 H Estimated GFR 50.9 L BUN/Creatinine Ratio 11.4 Glucose 290 H Hemoglobin A1c Lactate Uric Acid Calcium 9.9 Phosphorus Magnesium Total Bilirubin 0.4 AST 27 ALT 21 Alkaline Phosphatase 115 Total Creatine Kinase CK-MB (CK-2) CK-MB (CK-2) Rel Index Troponin I Total Protein 7.7 Albumin 4.7 Globulin 3.0 Albumin/Globulin Ratio 1.6 Triglycerides Cholesterol LDL Cholesterol, Calc HDL Cholesterol Lipase 140 Procalcitonin TSH Free T4 Serum , Qual Cortisol AM Sample Urine Color Urine Appearance Urine pH Ur Specific [place] Urine Protein Urine Glucose (UA) Urine Ketones Urine Occult Blood Urine Nitrate Urine Bilirubin Urine Urobilinogen Ur Leukocyte Esterase Urine RBC Urine WBC Ur Squamous Epith Cells Urine Bacteria Ur Culture Indicated? Ur Random Sodium Nasal Screen MRSA (PCR) Salicylates Acetaminophen Ketones SARS-CoV-2 (PCR) 02/28/21 02/28/21 02/28/21 18:37 18:37 18:37 WBC RBC Hgb Hct MCV MCH MCHC RDW Plt Count Neut % (Auto) Lymph % (Auto) Mason % (Auto) Eos % (Auto) Baso % (Auto) Neut # (Auto) Lymph # (Auto) Mason # (Auto) Eos # (Auto) Baso # (Auto) PT INR APTT VBG pH VBG pCO2 VBG pO2 VBG HCO3 VBG Total CO2 VBG O2 Saturation VBG Base Excess Sodium Potassium Chloride Carbon Dioxide BUN Creatinine Estimated GFR BUN/Creatinine Ratio Glucose Hemoglobin A1c Lactate Uric Acid Calcium Phosphorus 3.7 Magnesium 1.3 L Total Bilirubin AST ALT Alkaline Phosphatase Total Creatine Kinase 119 CK-MB (CK-2) 4.36 H CK-MB (CK-2) Rel Index 3.7 Troponin I 0.027 Total Protein Albumin Globulin Albumin/Globulin Ratio Triglycerides Cholesterol LDL Cholesterol, Calc HDL Cholesterol Lipase Procalcitonin TSH Free T4 Serum , Qual Negative Cortisol AM Sample Urine Color Urine Appearance Urine pH Ur Specific [place] Urine Protein Urine Glucose (UA) Urine Ketones Urine Occult Blood Urine Nitrate Urine Bilirubin Urine Urobilinogen Ur Leukocyte Esterase Urine RBC Urine WBC Ur Squamous Epith Cells Urine Bacteria Ur Culture Indicated? Ur Random Sodium Nasal Screen MRSA (PCR) Salicylates 1.8 Acetaminophen 21 Ketones 0.13 SARS-CoV-2 (PCR) 02/28/21 02/28/21 02/28/21 18:37 20:19 21:03 WBC RBC Hgb Hct MCV MCH MCHC RDW Plt Count Neut % (Auto) Lymph % (Auto) Mason % (Auto) Eos % (Auto) Baso % (Auto) Neut # (Auto) Lymph # (Auto) Mason # (Auto) Eos # (Auto) Baso # (Auto) PT INR APTT VBG pH 7.54 H VBG pCO2 28.7 L VBG pO2 24 L VBG HCO3 24 VBG Total CO2 25 VBG O2 Saturation 54 L VBG Base Excess 2.0 Sodium Potassium Chloride Carbon Dioxide BUN Creatinine Estimated GFR BUN/Creatinine Ratio Glucose Hemoglobin A1c 9.1 H Lactate Uric Acid Calcium Phosphorus Magnesium Total Bilirubin AST ALT Alkaline Phosphatase Total Creatine Kinase CK-MB (CK-2) CK-MB (CK-2) Rel Index Troponin I Total Protein Albumin Globulin Albumin/Globulin Ratio Triglycerides Cholesterol LDL Cholesterol, Calc HDL Cholesterol Lipase Procalcitonin TSH Free T4 Serum , Qual Cortisol AM Sample Urine Color Urine Appearance Urine pH Ur Specific [place] Urine Protein Urine Glucose (UA) Urine Ketones Urine Occult Blood Urine Nitrate Urine Bilirubin Urine Urobilinogen Ur Leukocyte Esterase Urine RBC Urine WBC Ur Squamous Epith Cells Urine Bacteria Ur Culture Indicated? Ur Random Sodium Nasal Screen MRSA (PCR) Salicylates Acetaminophen Ketones SARS-CoV-2 (PCR) Negative 02/28/21 02/28/21 02/28/21 22:30 22:30 22:36 WBC RBC Hgb Hct MCV MCH MCHC RDW Plt Count Neut % (Auto) Lymph % (Auto) Mason % (Auto) Eos % (Auto) Baso % (Auto) Neut # (Auto) Lymph # (Auto) Mason # (Auto) Eos # (Auto) Baso # (Auto) PT INR APTT VBG pH VBG pCO2 VBG pO2 VBG HCO3 VBG Total CO2 VBG O2 Saturation VBG Base Excess Sodium Potassium Chloride Carbon Dioxide BUN Creatinine Estimated GFR BUN/Creatinine Ratio Glucose Hemoglobin A1c Lactate Uric Acid Calcium Phosphorus Magnesium Total Bilirubin AST ALT Alkaline Phosphatase Total Creatine Kinase CK-MB (CK-2) CK-MB (CK-2) Rel Index Troponin I Total Protein Albumin Globulin Albumin/Globulin Ratio Triglycerides Cholesterol LDL Cholesterol, Calc HDL Cholesterol Lipase Procalcitonin TSH Free T4 Serum , Qual Cortisol AM Sample Urine Color Yellow Urine Appearance Clear Urine pH 5.0 Ur Specific [place] 1.020 Urine Protein 1+ H Urine Glucose (UA) 1+ H Urine Ketones Negative Urine Occult Blood Trace-intact Urine Nitrate Negative Urine Bilirubin Negative Urine Urobilinogen 0.2 Ur Leukocyte Esterase 1+ H Urine RBC None seen Urine WBC 10-30/hpf H Ur Squamous Epith Cells 1-5 /hpf Urine Bacteria Few (2-10) H Ur Culture Indicated? Specimen cultured Ur Random Sodium 15 L Nasal Screen MRSA (PCR) Negative for mrsa Salicylates Acetaminophen Ketones SARS-CoV-2 (PCR) 02/28/21 02/28/21 02/28/21 22:43 22:43 22:43 WBC RBC Hgb Hct MCV MCH MCHC RDW Plt Count Neut % (Auto) Lymph % (Auto) Mason % (Auto) Eos % (Auto) Baso % (Auto) Neut # (Auto) Lymph # (Auto) Mason # (Auto) Eos # (Auto) Baso # (Auto) PT INR APTT VBG pH VBG pCO2 VBG pO2 VBG HCO3 VBG Total CO2 VBG O2 Saturation VBG Base Excess Sodium 115 L* Potassium 3.3 L Chloride 75 L* Carbon Dioxide 24 BUN 15 Creatinine 1.05 H Estimated GFR 55.9 L BUN/Creatinine Ratio 14.3 Glucose 308 H Hemoglobin A1c Lactate Uric Acid Calcium 9.6 Phosphorus Magnesium 3.0 H Total Bilirubin AST ALT Alkaline Phosphatase Total Creatine Kinase CK-MB (CK-2) CK-MB (CK-2) Rel Index Troponin I 0.031 Total Protein Albumin Globulin Albumin/Globulin Ratio Triglycerides Cholesterol LDL Cholesterol, Calc HDL Cholesterol Lipase Procalcitonin TSH Free T4 Serum , Qual Cortisol AM Sample Urine Color Urine Appearance Urine pH Ur Specific [place] Urine Protein Urine Glucose (UA) Urine Ketones Urine Occult Blood Urine Nitrate Urine Bilirubin Urine Urobilinogen Ur Leukocyte Esterase Urine RBC Urine WBC Ur Squamous Epith Cells Urine Bacteria Ur Culture Indicated? Ur Random Sodium Nasal Screen MRSA (PCR) Salicylates < 1.0 Acetaminophen Ketones SARS-CoV-2 (PCR) 02/28/21 02/28/21 02/28/21 22:43 22:43 22:43 WBC RBC Hgb Hct MCV MCH MCHC RDW Plt Count Neut % (Auto) Lymph % (Auto) Mason % (Auto) Eos % (Auto) Baso % (Auto) Neut # (Auto) Lymph # (Auto) Mason # (Auto) Eos # (Auto) Baso # (Auto) PT INR APTT VBG pH VBG pCO2 VBG pO2 VBG HCO3 VBG Total CO2 VBG O2 Saturation VBG Base Excess Sodium Potassium Chloride Carbon Dioxide BUN Creatinine Estimated GFR BUN/Creatinine Ratio Glucose Hemoglobin A1c Lactate 3.3 H Uric Acid Calcium Phosphorus Magnesium Total Bilirubin AST ALT Alkaline Phosphatase Total Creatine Kinase CK-MB (CK-2) CK-MB (CK-2) Rel Index Troponin I Total Protein Albumin Globulin Albumin/Globulin Ratio Triglycerides Cholesterol LDL Cholesterol, Calc HDL Cholesterol Lipase Procalcitonin 11.0 H TSH Free T4 Serum , Qual Cortisol AM Sample Urine Color Urine Appearance Urine pH Ur Specific [place] Urine Protein Urine Glucose (UA) Urine Ketones Urine Occult Blood Urine Nitrate Urine Bilirubin Urine Urobilinogen Ur Leukocyte Esterase Urine RBC Urine WBC Ur Squamous Epith Cells Urine Bacteria Ur Culture Indicated? Ur Random Sodium Nasal Screen MRSA (PCR) Salicylates Acetaminophen Ketones 0.12 SARS-CoV-2 (PCR) 03/01/21 03/01/21 03/01/21 05:16 05:16 05:16 WBC 11.9 H D RBC 3.84 L Hgb 10.6 L Hct 30.6 L MCV 79.6 L MCH 27.5 MCHC 34.5 RDW 15.8 H Plt Count 188 Neut % (Auto) 76.2 H Lymph % (Auto) 16.4 L Mason % (Auto) 6.2 Eos % (Auto) 0.6 L Baso % (Auto) 0.6 Neut # (Auto) 9100 H Lymph # (Auto) 2000 Mason # (Auto) 700 Eos # (Auto) 100 Baso # (Auto) 100 PT 13.4 H INR 1.2 APTT VBG pH VBG pCO2 VBG pO2 VBG HCO3 VBG Total CO2 VBG O2 Saturation VBG Base Excess Sodium 118 L* Potassium 3.2 L Chloride 81 L Carbon Dioxide 29 BUN 12 Creatinine 0.75 Estimated GFR > 60.0 BUN/Creatinine Ratio 16.0 Glucose 140 H D Hemoglobin A1c Lactate Uric Acid Calcium 9.1 Phosphorus Magnesium 2.1 Total Bilirubin AST ALT Alkaline Phosphatase Total Creatine Kinase CK-MB (CK-2) CK-MB (CK-2) Rel Index Troponin I 0.031 Total Protein Albumin Globulin Albumin/Globulin Ratio Triglycerides Cholesterol LDL Cholesterol, Calc HDL Cholesterol Lipase Procalcitonin TSH Free T4 Serum , Qual Cortisol AM Sample Urine Color Urine Appearance Urine pH Ur Specific [place] Urine Protein Urine Glucose (UA) Urine Ketones Urine Occult Blood Urine Nitrate Urine Bilirubin Urine Urobilinogen Ur Leukocyte Esterase Urine RBC Urine WBC Ur Squamous Epith Cells Urine Bacteria Ur Culture Indicated? Ur Random Sodium Nasal Screen MRSA (PCR) Salicylates Acetaminophen Ketones SARS-CoV-2 (PCR) 03/01/21 03/01/21 03/01/21 05:16 05:16 05:16 WBC RBC Hgb Hct MCV MCH MCHC RDW Plt Count Neut % (Auto) Lymph % (Auto) Mason % (Auto) Eos % (Auto) Baso % (Auto) Neut # (Auto) Lymph # (Auto) Mason # (Auto) Eos # (Auto) Baso # (Auto) PT INR APTT VBG pH VBG pCO2 VBG pO2 VBG HCO3 VBG Total CO2 VBG O2 Saturation VBG Base Excess Sodium Potassium Chloride Carbon Dioxide BUN Creatinine Estimated GFR BUN/Creatinine Ratio Glucose Hemoglobin A1c Lactate Uric Acid Calcium Phosphorus 2.9 Magnesium Total Bilirubin AST ALT Alkaline Phosphatase Total Creatine Kinase CK-MB (CK-2) CK-MB (CK-2) Rel Index Troponin I Total Protein Albumin Globulin Albumin/Globulin Ratio Triglycerides Cholesterol LDL Cholesterol, Calc HDL Cholesterol Lipase Procalcitonin TSH 0.31 L Free T4 1.24 Serum , Qual Cortisol AM Sample 6.15 Urine Color Urine Appearance Urine pH Ur Specific [place] Urine Protein Urine Glucose (UA) Urine Ketones Urine Occult Blood Urine Nitrate Urine Bilirubin Urine Urobilinogen Ur Leukocyte Esterase Urine RBC Urine WBC Ur Squamous Epith Cells Urine Bacteria Ur Culture Indicated? Ur Random Sodium Nasal Screen MRSA (PCR) Salicylates Acetaminophen Ketones SARS-CoV-2 (PCR) 03/01/21 03/01/21 03/01/21 05:16 05:16 05:16 WBC RBC Hgb Hct MCV MCH MCHC RDW Plt Count Neut % (Auto) Lymph % (Auto) Mason % (Auto) Eos % (Auto) Baso % (Auto) Neut # (Auto) Lymph # (Auto) Mason # (Auto) Eos # (Auto) Baso # (Auto) PT INR APTT VBG pH VBG pCO2 VBG pO2 VBG HCO3 VBG Total CO2 VBG O2 Saturation VBG Base Excess Sodium Potassium Chloride Carbon Dioxide BUN Creatinine Estimated GFR BUN/Creatinine Ratio Glucose Hemoglobin A1c Lactate 1.3 Uric Acid 4.2 Calcium Phosphorus Magnesium Total Bilirubin AST ALT Alkaline Phosphatase Total Creatine Kinase CK-MB (CK-2) CK-MB (CK-2) Rel Index Troponin I Total Protein Albumin Globulin Albumin/Globulin Ratio Triglycerides 115 Cholesterol 229 H LDL Cholesterol, Calc 159 H HDL Cholesterol 47 Lipase Procalcitonin TSH Free T4 Serum , Qual Cortisol AM Sample Urine Color Urine Appearance Urine pH Ur Specific [place] Urine Protein Urine Glucose (UA) Urine Ketones Urine Occult Blood Urine Nitrate Urine Bilirubin Urine Urobilinogen Ur Leukocyte Esterase Urine RBC Urine WBC Ur Squamous Epith Cells Urine Bacteria Ur Culture Indicated? Ur Random Sodium Nasal Screen MRSA (PCR) Salicylates Acetaminophen Ketones SARS-CoV-2 (PCR) 03/01/21 03/01/21 05:27 11:03 WBC RBC Hgb Hct MCV MCH MCHC RDW Plt Count Neut % (Auto) Lymph % (Auto) Mason % (Auto) Eos % (Auto) Baso % (Auto) Neut # (Auto) Lymph # (Auto) Mason # (Auto) Eos # (Auto) Baso # (Auto) PT INR APTT VBG pH 7.37 VBG pCO2 50.5 H VBG pO2 22 L VBG HCO3 29 H VBG Total CO2 31 H VBG O2 Saturation 35 L VBG Base Excess 4.0 Sodium 117 L* Potassium 3.8 Chloride 83 L Carbon Dioxide 27 BUN 10 Creatinine 0.62 Estimated GFR > 60.0 BUN/Creatinine Ratio 16.1 Glucose 163 H Hemoglobin A1c Lactate Uric Acid Calcium 8.8 Phosphorus Magnesium Total Bilirubin AST ALT Alkaline Phosphatase Total Creatine Kinase CK-MB (CK-2) CK-MB (CK-2) Rel Index Troponin I Total Protein Albumin Globulin Albumin/Globulin Ratio Triglycerides Cholesterol LDL Cholesterol, Calc HDL Cholesterol Lipase Procalcitonin TSH Free T4 Serum , Qual Cortisol AM Sample Urine Color Urine Appearance Urine pH Ur Specific [place] Urine Protein Urine Glucose (UA) Urine Ketones Urine Occult Blood Urine Nitrate Urine Bilirubin Urine Urobilinogen Ur Leukocyte Esterase Urine RBC Urine WBC Ur Squamous Epith Cells Urine Bacteria Ur Culture Indicated? Ur Random Sodium Nasal Screen MRSA (PCR) Salicylates Acetaminophen Ketones SARS-CoV-2 (PCR) PFSH Medical History Anxiety Chronic low back pain Coronary artery disease Diabetes Diabetic ketoacidosis GERD (gastroesophageal reflux disease) History of non-ST elevation myocardial infarction (NSTEMI) History of ovarian cancer in adulthood Hyperlipidemia Hypertension Surgical History (Updated 03/01/21 @ 00:26 by NORMA Zacarias) History of coronary artery stent placement History of hysterectomy for cancer Family History (Updated 03/01/21 @ 00:29 by NORMA Zacarias) Father Congestive heart failure Hx of CABG Mother Diabetes mellitus Congestive heart failure History of sepsis due to sepsis Social History household members: spouse and family Smoking Status: Never smoker alcohol intake: never substance use type: does not use Assessment & Plan Assessment & Plan narrative: 50W with PMH type 2 diabetes, CAD s/p stents, hypertension, hyperlipidemia who comes in with nausea and vomiting found to have severe hyopnatremia, acute kidney injury, and leukocytosis 1. Severe hyponatremia -patient had nausea, vomiting, also was on a thiazide diuretic -additionally she admits to drinking lots of water -initial volume status shows hyponatremia -low urine sodium of 15 -serum and urine osms pending -initial sodium 115, started on normal saline IVF with improvement to sodium of 118 -repeat lab now at 117, still pending urine/serums osms, patient still appears dehydrated, because of this will add salt tabs -patient continues to be asymptomatic, but if continues to drop will likely need 3% saline -cxray shows interstitial infiltrates of unclear etiology -ordered ct chest and ct head for further evaluation of hyponatremia -ordered fluid restriction -is on SSRI and tricyclic antidepressant which could cause SIADH, but these are chronic medications -was taking significant amounts of meclizine which could precipitate vomiting 2. Acute FARHAT from hypovolemia from acute dehydration resulting in hypokalemia, hyperglycemia, and hypomagnesium -FARHAT resolved with administration of IV fluids -continue to monitor creatinine daily 3. Leukocytosis and elevated procalcitonin -etiology not clear currently -UA equivocal, but does have bacteria, leukocyte esterase -chest xray shows nonspecific interstitial infiltrates -was vomiting but this has resolved, LFTs are normal, and she currently has no abdominal pain -getting CT chest for abnormal cxray findings 4. Insulin-dependent type 2 diabetes, uncontrolled on admission -initial blood sugars over 300 -been started on insulin lantus BID, with sliding scale with good improvement -a1c 9.1 5. Essential hypertension, chronic -currently has borderline low blood pressures -will resume blood pressure medications slowly as pressure allows -holding losartan now -holding hctz 6. CAD s/p NSTEMI s/p stents as a result of coronary artery disease/hyperlipidemia with history of NSTEMI with stent placements 03/2020 associated with IDDM, chronic - Continue patients atorvastatin, fenofibrate, and metoprolol 7. Anxiety, chronic, not present on admission -patient denies anxiety or suicidal ideation -continue patient's temazepam, nortriptyline, fluoxetine 5. Chronic low back pain, acute on chronic, present on admission -continue patient's gabapentin, and oxycodone-acetaminophen 6. GERD, chronic, not present on admission, stability unknown -holding patient's omeprazole, providing 20 mg Protonix b.i.d. Code status:Full Code Surrogate/plan of care: Spouse Garett THORNE PCR:Negative VTE prophylaxis:Lovenox 40mg & SCDS
[2021-03-01] MEDS: SODIUM CHLORIDE 1,000 MG TABLET 3000 MG PO ×2 (14:37→21:13)
[2021-03-01 17:43] LABS: BUN Creatinine Ratio 14.7 (6-22); Blood Urea Nitrogen 10 mg/dL (7-17); Calcium 8.3 mg/dL (8.4-10.2); Carbon Dioxide 27 mmol/L (22-32); Chloride 90 mmol/L (98-107); Estimated Glomerular Filt Rate > 60.0 mL/min (>60); Glucose 109 mg/dL (70-100); HEMOLYSIS < 15 (0-50); Potassium 3.7 mmol/L (3.4-5.1); Sodium 122 mmol/L (137-145)
[2021-03-01 17:49] LABS: Adenovirus Not Detected (Not Detect); B. parapertussis Not Detected (Not Detecte); Bordetella pertussis Not Detected (Not Detecte); Chlamydophila pneumoniae Not Detected (Not Detect); Coronavirus 229E Not Detected (Not Detect); Coronavirus HKU1 Not Detected (Not Detect); Coronavirus NL 63 Not Detected (Not Detect); Coronavirus OC43 Not Detected (Not Detect); Human Metapneumovirus Not Detected (Not Detect); Human Rhinovirus/Enterovirus Not Detected (Not Detect); Influenza A Not Detected (Not Detect); Influenza B Not Detected (Not Detect); Mycoplasma pneumoniae Not Detected (Not Detect); Parainfluenza Virus 1 Not Detected (Not Detect); Parainfluenza Virus 2 Not Detected (Not Detect); Parainfluenza Virus 3 Not Detected (Not Detect); Parainfluenza Virus 4 Not Detected (Not Detect); Respiratory Syncytial Virus Not Detected (Not Detect); SARS- CoV-2 Not Detected (Not Detecte)
[2021-03-01] MEDS: NORTRIPTYLINE HCL 25 MG CAPSULE 50 MG PO (21:13)
[2021-03-01] MEDS: levoFLOXacin 750 MG/150 ML PIGGYBACK 100 MG IV (21:16)
--- NOTE | 2021-03-01 22:21 | PC.NURSE ---
shift note: pT alert awake and cooperative with care. following fluid restriction as ordered. IV NS @ 150hr maintained, up to BR with standby assist. Denies pain or discomfort.
[2021-03-02] VITALS (8 sets, daily range): BP systolic 119–132; BP diastolic 61–76; PULSE 84–105; RESP 16–20; TEMP 35.9–36.9; O2SAT 92–96
[2021-03-02 00:48] LABS: BUN Creatinine Ratio 16.2 (6-22); Blood Urea Nitrogen 11 mg/dL (7-17); Calcium 8.1 mg/dL (8.4-10.2); Carbon Dioxide 27 mmol/L (22-32); Chloride 93 mmol/L (98-107); Estimated Glomerular Filt Rate > 60.0 mL/min (>60); Glucose 256 mg/dL (70-100); HEMOLYSIS < 15 (0-50); Potassium 4.8 mmol/L (3.4-5.1); Sodium 123 mmol/L (137-145)
[2021-03-02] MEDS: INSULIN ASPART 100 UNIT/ML INSULN PEN SUBCUT ×2 (01:17→12:22)
[2021-03-02] MEDS: SODIUM CHLORIDE 0.9% 1,000 ML 150 ML IV (04:25)
[2021-03-02 06:13] LABS: Phosphorous 2.1 mg/dL (2.5-4.5)
[2021-03-02 06:14] LABS: BUN Creatinine Ratio 15.5 (6-22); Blood Urea Nitrogen 9 mg/dL (7-17); Calcium 8.5 mg/dL (8.4-10.2); Carbon Dioxide 28 mmol/L (22-32); Chloride 95 mmol/L (98-107); Estimated Glomerular Filt Rate > 60.0 mL/min (>60); Glucose 122 mg/dL (70-100); HEMOLYSIS < 15 (0-50); Magnesium 1.6 mg/dL (1.6-2.3); Potassium 4.7 mmol/L (3.4-5.1); Sodium 125 mmol/L (137-145)
[2021-03-02 06:17] LABS: Add Manual Diff / Slide Review NO; Basophils Absolute Auto 100 /uL (0-100); Basophils Percent Auto 0.7 % (0-2); Eosinophils Absolute Auto 100 /uL (0-450); Eosinophils Percent Auto 1.7 % (2-4); Hematocrit 28.5 % (36-46); Hemoglobin 9.7 g/dL (12.0-16.0); Lymphocytes Absolute Auto 1500 /uL (1100-4500); Lymphocytes Percent Auto 18.5 % (25-40); Mean Corpuscular HGB Conc 34.2 % (30-36); Mean Corpuscular Hemoglobin 28.1 PG (26-34); Mean Corpuscular Volume 82.2 fL (80-100); Monocytes Absolute Auto 600 /uL (0-900); Monocytes Percent Auto 7.8 % (3-14); Neutrophils Absolute Auto 5700 /uL (1500-7000); Neutrophils Percent Auto 71.3 % (50-75); Platelet Count 181 X10^3/uL (150-400); Red Blood Cell Count 3.47 X10^6/uL (4.0-5.2); Red Cell Distribution Width 16.3 % (11.6-14.8); White Blood Cell Count 7.9 X10^3/uL (4.5-11.0)
[2021-03-02] MEDS: METOCLOPRAMIDE HCL 10 MG TABLET PO ×2 (08:14→12:27)
[2021-03-02] MEDS: FLUoxetine 20 MG CAPSULE 60 MG PO (08:15)
[2021-03-02] MEDS: FENOFIBRATE 160 MG TABLET PO (08:15)
[2021-03-02] MEDS: ATORVASTATIN 20 MG TABLET 80 MG PO (08:15)
[2021-03-02] MEDS: ENOXAPARIN 40 MG/0.4 ML SYRINGE SUBCUT (08:15)
[2021-03-02] MEDS: GABAPENTIN 600 MG TABLET PO ×2 (08:15→14:53)
[2021-03-02] MEDS: METOPROLOL ER 25 MG TABLET PO (08:16)
[2021-03-02] MEDS: PANTOPRAZOLE 20 MG TABLET PO (08:16)
[2021-03-02] MEDS: SODIUM CHLORIDE 1,000 MG TABLET 3000 MG PO ×2 (08:22→14:53)
[2021-03-02] MEDS: INSULIN GLARGINE 100 UNIT/ML 3ML PEN 30 UNIT SUBCUT (08:27)
[2021-03-02] MEDS: SODIUM CHLORIDE 0.9% FLUSH 10 ML IV (12:32)
[2021-03-02 13:57] LABS: Blood Urea Nitrogen 8 mg/dL (7-17); Calcium 8.6 mg/dL (8.4-10.2); Carbon Dioxide 28 mmol/L (22-32); Chloride 93 mmol/L (98-107); Estimated Glomerular Filt Rate > 60.0 mL/min (>60); Glucose 159 mg/dL (70-100); HEMOLYSIS < 15 (0-50); Sodium 127 mmol/L (137-145)
[2021-03-02 14:36] LABS: Osmolality Urine 271 mOsmol/kg (.)
[2021-03-02 14:36] LABS: Osmolality, Serum 249 mOsmol/kg (275-295)
--- NOTE | 2021-03-02 15:35 | PC.NURSE ---
Discharge order received and patient eager to go home with her . Tolerating diet today, denies pain, following free water restriction. IV dc'd intact. Patient up ad ronal in room without difficulty. Discharge instructions and home care handouts reviewed with patient. Patient prefers to call her PCP to schedule her follow up appointment with sodium recheck for in 1 week. Escorted out via wheelchair with all her belongings to home with her . Instructed to see her doctor or seek urgent/emergent care if symptoms return or worsen or if she develops new symptoms. Patient states undestanding and has no further questions or concerns.
--- NOTE | 2021-03-02 18:33 | P.DS_ITS ---
History of Present Illness History of Present Illness Chief complaint: NAUSEA PUKING Narrative: 50-year-old female Maria Teresa Villalobos, who presented to the ED with complaint of vomiting, headache and abdominal cramping pain. Patient has a history of insulin-dependent type 2 diabetes, had an NSTEMI with stent placement in March of 2020, coronary artery disease, hypertension, hyperlipidemia, and was admitted on 03/2020 for DKA. Patient stated that last night before bed she had a severe headache and she reports taking increasing dosages of aspirin for some period time, patient does note that she has a sustained history of headaches and this was no different her last dose of aspirin was at 12:00 p.m. yesterday when she woke up this morning the headache continued but was improved and the patient began vomiting she notes she has some mild abdominal pain and cramping with vomiting but resolves once the vomiting stops, patient reports that she has vomited approximately 4-6 times in the last 24 hours, the patient denies chest pain, hematemesis, shortness of breath, fever, body aches, chills. Patient denies any recent injury or trauma, illness, travel, changes in medication. Upon admit to the floor patient denies nausea at this time, or abdominal pain. She notes she does have a headache, patient states that she is not short of breath though she demonstrates using accessory muscles in work of breathing p atient simply states ?that when I take a deep breath it makes my throat sore. Patient denies cough, fever, body aches, chills, blood in urine or stool, skin wounds, abnormal bruising or bleeding. Patient's PCP is Constanza watts at [facility]. Patient's vitals upon admit temp 97.3?, BP 121/59, HR 94, RR 21, O2 saturation 98% on room air. Patient's labs WBC 27.8, Na 115 (corrected sodium 119), Cl 75, K+ 3.1, CR 1.14, glucose 290, EGFR 50.9, ketones 0.13, anion gap of 18, creatinine clearance calculated 71 mL/min, A1c 9.1, mg 1.3, CK-MB 4.36 (last 03/2020 NSTEMI 6.34), troponin 0.027, salicylate 1.8, acetaminophen 21. VBG: PH 7.54, pCO2 28.7, PO2 24, O2 saturation 54%. EKG: Normal sinus rhythm without ischemic, ST or T-wave changes. Patient being admitted for FARHAT, acute dehydration, hyponatremia, hypokalemia, hypomagnesium, and hyperglycemia. Discharge Providers Provider Date of admission: 02/28/21 21:33 Discharge Date: 03/02/21 Discharge provider: Titi Mclain MD Summary Hospital Course Discharge Diagnosis: 1. Severe hyponatremia 2. Acute Kidney injury 3. Pneumonia, acute likely bacterial 4. Type 2 Diabetes, on insulin, initially hyperglycemic 5. Hypertension 6. CAD s/p stents 7. Anxiety 8. GERD 9. Anemia, mild 10. CHF with preserved EF Hospital Course: Ms. Villalobos was initially admitted with nausea and vomiting. She was noted initially noted to be severely hyponatremic. She had been on HCTZ prior to arrival, and also drinking significant amounts of water. Initially there was some concern she was in DKA, as she has been in DKA in the past, but her urine ketones were negative and her blood sugar initially was 308. She had no confusion with her hyponatremia. She was notable quite hypovolemic on exam. She had a low urine sodium, high urine osms, low serum osms, and she improved with intravenous fluid which was consistent with hypovolemic hyponatremia. She was given some salt tabs as well to encourage oral salt intake, and encouraged to not drink significant amounts of water. She was recommended to stop taking her HCTZ. She also was found initially to have a quite high WBC of 27.8 and procalcitonin of 11. She had CT scan which showed interstitial infiltrates and was started on levaquin. She also initially had mild FARHAT with creatinine 1.14 that improved to 0.50 on discharge. Her sodium on discharge was 127, and she was eager to leave the hospital, and had no further symptoms. She was encourage to follow up with her PCP within a week for repeat sodium. Of note she took significant amounts of meclizine for her symptoms prior to arrival, but after looking through literature I did not find any association with meclizine and hyponatremia, but she was counselled on appropriate use of this medication. Code status:Full Code Status at Discharge Cognitive/behavioral status at discharge: oriented Functional status at discharge: independent ambulation Overall status at discharge: patient is progressing back to baseline Exam Vital Signs (past 8 hours): - 03/02/21 12:00 03/02/21 13:00 Temperature 98.1 F Pulse Rate 105 H Respiratory Rate 19 Blood Pressure 120/66 Pulse Oximetry 92 94 Oxygen Delivery Method Room Air Oxygen Flow Rate 0 Narrative Exam Narrative: General: No acute distress HEENT: PERRL, mucous membranes are dry, Negative for JVD Lungs: no wheezes, rhonchi, or rales. Cardio: regular rate and rhythm,positive mumur, no rubs, or gallops, no carotid bruit, no cardiac pulsations present. Abdomen: Soft nontender, no organomegaly, or masses. Bowel sounds are present in all 4 quadrants without guarding or rebound, no CVA tenderness. Musculoskeletal: Muscle strength are equal within normal limits, fulll range of motion intact Skin: Warm dry and intact without rashes. Neuro: Alert and orientated x3, strength is +5/5 in all extremities, sensation to touch intact, no deficits noted of cranial nerves. Psych: cooperative, and pleasant mood. Objective Labs Result Diagrams: 03/02/21 05:11 03/02/21 13:34 Labs: Laboratory Results - last 24 hr 02/28/21 02/28/21 03/02/21 22:30 22:43 00:28 WBC RBC Hgb Hct MCV MCH MCHC RDW Plt Count Neut % (Auto) Lymph % (Auto) [place] % (Auto) Eos % (Auto) Baso % (Auto) Neut # (Auto) Lymph # (Auto) [place] # (Auto) Eos # (Auto) Baso # (Auto) Sodium 123 L Potassium 4.8 Chloride 93 L Carbon Dioxide 27 BUN 11 Creatinine 0.68 Estimated GFR > 60.0 BUN/Creatinine Ratio 16.2 Glucose 256 H D Serum Osmolality 249 L Calcium 8.1 L Phosphorus Magnesium Urine Osmolality 271 03/02/21 03/02/21 03/02/21 05:11 05:11 05:11 WBC 7.9 RBC 3.47 L Hgb 9.7 L Hct 28.5 L MCV 82.2 MCH 28.1 MCHC 34.2 RDW 16.3 H Plt Count 181 Neut % (Auto) 71.3 Lymph % (Auto) 18.5 L [place] % (Auto) 7.8 Eos % (Auto) 1.7 L Baso % (Auto) 0.7 Neut # (Auto) 5700 Lymph # (Auto) 1500 [place] # (Auto) 600 Eos # (Auto) 100 Baso # (Auto) 100 Sodium 125 L Potassium 4.7 Chloride 95 L Carbon Dioxide 28 BUN 9 Creatinine 0.58 Estimated GFR > 60.0 BUN/Creatinine Ratio 15.5 Glucose 122 H D Serum Osmolality Calcium 8.5 Phosphorus 2.1 L Magnesium 1.6 Urine Osmolality 03/02/21 13:34 WBC RBC Hgb Hct MCV MCH MCHC RDW Plt Count Neut % (Auto) Lymph % (Auto) [place] % (Auto) Eos % (Auto) Baso % (Auto) Neut # (Auto) Lymph # (Auto) [place] # (Auto) Eos # (Auto) Baso # (Auto) Sodium 127 L Potassium 4.0 Chloride 93 L Carbon Dioxide 28 BUN 8 Creatinine 0.50 L Estimated GFR > 60.0 BUN/Creatinine Ratio 16.0 Glucose 159 H Serum Osmolality Calcium 8.6 Phosphorus Magnesium Urine Osmolality [facility] Medical History Anxiety Chronic low back pain Coronary artery disease Diabetes Diabetic ketoacidosis GERD (gastroesophageal reflux disease) History of non-ST elevation myocardial infarction (NSTEMI) History of ovarian cancer in adulthood Hyperlipidemia Hypertension Surgical History (Updated 03/01/21 @ 00:26 by NORMA Zacarias) History of coronary artery stent placement History of hysterectomy for cancer Family History (Updated 03/01/21 @ 00:29 by NORMA Zacarias) Father Congestive heart failure Hx of CABG Mother Diabetes mellitus Congestive heart failure History of sepsis due to sepsis Social History household members: spouse and family Smoking Status: Never smoker alcohol intake: never substance use type: does not use Discharge Plan Discharge Plan Patient Disposition: Home Provider Discharge Comment: Ms. Villalobos came in with nausea and vomiting. She was notably very dehydrated. She had a severely low sodium initially of 115. She had her HCTZ medication stopped because that can lower sodium levels. She was given IV fluids with sodium. And she was given salt tablets. Her sodium slowly improved to 127 on the day she was discharged. She was encouraged not to drink excessive amounts of water, she previously had been drinking significant water and tea. She also had a possible pneumonia noted on her lungs so was given antibiotics and can finish three more days of antibiotics for a possible pneumonia. She should follow up with her PCP in 1 week and recheck sodium. Discharge orders & Medications Prescriptions: New sodium chloride 1,000 mg Tablet,Soluble 2,000 mg PO TID Qty: 20 RF: 0 levofloxacin 750 mg tablet 750 mg PO DAILY Qty: 3 RF: 0 Continued metoprolol succinate [Toprol XL] 25 mg tablet extended release 24 hr 25 mg PO BID Qty: 180 RF: 3 glimepiride 4 mg tablet 8 mg PO QAM Qty: 180 RF: 3 Disabled [address]ing Permit 1 stefani miscellaneous DIRECTED RF: 0 Coleman 1 pkg miscellaneous BID RF: 0 dulaglutide 1.5 mg/0.5 mL pen injector 1.5 ml subcut QWEEK RF: 0 fluoxetine 20 mg capsule 60 mg PO DAILY RF: 0 fenofibrate 160 mg tablet 160 mg PO DAILY RF: 0 cetirizine 10 mg Tablet 10 mg PO DAILY RF: 0 nortriptyline 50 mg capsule 50 mg PO BEDTIME RF: 0 metoclopramide HCl 10 mg tablet 10 mg PO ACHS RF: 0 insulin aspart U-100 [Novolog Flexpen U-100 Insulin] 100 unit/mL insulin pen 1 dose SUBCUT BID RF: 0 Levemir U-100 Insulin 100 unit/mL solution 35 unit SUBCUT SEE INSTRUCTIONS RF: 0 atorvastatin 80 mg tablet 80 mg PO DAILY RF: 0 Jardiance 25 mg tablet 25 mg PO DAILY RF: 0 omeprazole 20 mg capsule,delayed release(DR/EC) 20 mg PO BID RF: 0 Lantus Solostar U-100 Insulin 100 unit/mL (3 mL) Insulin Pen 30 unit SUBCUT BID RF: 0 Repatha SureClick 140 mg/mL Pen Injector 140 mg SUBCUT Q2W RF: 0 gabapentin 600 mg Tablet 600 mg PO TID RF: 0 losartan 50 mg tablet 50 mg PO DAILY RF: 0 albuterol sulfate [Ventolin HFA] 90 mcg/actuation HFA aerosol inhaler 2 puff INHALATION PRN PRN (Reason: Shortness Of Breath) RF: 0 oxycodone-acetaminophen 10-325 mg tablet 1 tab PO TID PRN (Reason: Pain, Moderate) RF: 0 Discontinued hydrochlorothiazide 12.5 mg tablet 12.5 mg PO DAILY RF: 0 Diet/Activity/Treatments Diet: Diet as Tolerated Visit Report/Discharge Packet Instructions: DI for Diabetes Type 2, DI for Hyponatremia Quality MIPS - DC The patient has current or prior documentation of left ventricular ejection fraction (LVEF) less than 40%, or moderate or severely depressed left ventricular systolic function.: No
== END 2021-03-02 15:38 | disposition home or self-care (01) | DRG 640 ==
LOC: ED 20:43 → AC 21:33 → ICU 21:39
PROVIDERS: Internal Medicine; Admitting Provider Nurse Practitioner Family; Emergency Provider Emergency Medicine; Family Provider Internal Medicine Cardiovascular Disease; Referring Provider Emergency Medicine; Visit Provider Nurse Practitioner Family
DX: E87.1 Hypo-osmolality and hyponatremia (principal); J15.9 Unspecified bacterial pneumonia; N17.9 Acute kidney failure, unspecified; I50.32 Chronic diastolic (congestive) heart failure; E87.3 Alkalosis; E86.0 Dehydration; E87.6 Hypokalemia; E83.42 Hypomagnesemia; I11.0 Hypertensive heart disease with heart failure; E11.65 Type 2 diabetes mellitus with hyperglycemia; E78.5 Hyperlipidemia, unspecified; F41.9 Anxiety disorder, unspecified; I25.10 Atherosclerotic heart disease of native coronary artery without angina pectoris; D64.9 Anemia, unspecified; K21.9 Gastro-esophageal reflux disease without esophagitis; Z87.891 Personal history of nicotine dependence; Z20.822 Contact with and (suspected) exposure to COVID-19; Z79.4 Long term (current) use of insulin
CPT/HCPCS: 36415; 36592; 70450; 71046; 71250; 80048; 80053; 80061; 80329; 81001; 82009; 82533; 82550; 82553; 82805; 82962; 83036; 83605; 83690; 83735; 83930; 83935; 84100; 84145; 84300; 84439; 84443; 84484; 84550; 84703; 85025; 85610; 85730; 87086; 87633; 87635; 87797; 90471; 90656; 93005; 93010; 96361; 96374; 99284; C9803; A9270; G0480; J1650; J1956; J2405; J3475; J3480; Q2038